=== PATIENT | female | born 1950 | race Caucasian/White ===

== ENCOUNTER → 2019-04-22 10:00 | Outpatient (POV) | payer SELFPAY | PROVIDERS: Visit Provider Dermatology | DX: Z00.00 Encounter for general adult medical examination without abnormal findings (principal) ==

== ENCOUNTER → 2022-03-24 13:38 | Outpatient (CLI) | payer MEDICARE, BC, SELFPAY ==
--- NOTE | 2022-03-24 13:43 | US_ITS ---
FINAL REPORT CLINICAL HISTORY: SWELLING UNDER LT NECK FINDINGS: ULTRASOUND SOFT TISSUE NECK Sonographic images of the neck were obtained directed to the salivary glands. The bilateral submandibular and parotid glands have a normal sonographic appearance. Normal appearing lymph nodes are identified. There is no mass identified. IMPRESSION: Unremarkable. If clinical suspicion is high for mass, consider contrast-enhanced CT or MRI. Reviewed, Interpreted and Dictated by Yariel Hassan MD Transcribed by Lou Baltazar Authenticated and [facility]
--- NOTE | 2022-03-24 13:43 | US_ITS ---
FINAL REPORT CLINICAL HISTORY: RLQ PAIN FINDINGS: Transabdominal sonographic images of the pelvis were obtained. The uterus measures 6.1 x 2.3 x 4.0 cm. The endometrium is suboptimally visualized measuring 3 mm which is normal. The right ovary measures 1.3 x 1.1 x 0.6 cm. The left ovary measures 1.2 x 1.0 x 0.7 cm No free fluid is identified. IMPRESSION: No acute process. Reviewed, Interpreted and Dictated by Felix Humphrey III, MD Transcribed by Rupinder Calderon Authenticated and [facility]
== END ==
PROVIDERS: Visit Provider Family Medicine
DX: R22.1 Localized swelling, mass and lump, neck (principal); R10.31 Right lower quadrant pain
CPT/HCPCS: 76536; 76856

== ENCOUNTER 2022-12-09 10:06 | Emergency (ER) | payer MEDICARE, BC, SELFPAY ==
[2022-12-09 10:07] VITALS: BP 169/78; PULSE 75; RESP 18; TEMP 36.4; O2SAT 97; BMI 31.1
--- NOTE | 2022-12-09 10:24 | PC.NURSE ---
dr mcneill at bedside
--- NOTE | 2022-12-09 10:25 | PC.NURSE ---
pt attempted to urinate, unable to at this time
--- NOTE | 2022-12-09 10:32 | CT_ITS ---
PROCEDURE INFORMATION: Exam: CT Abdomen And Pelvis Without Contrast Exam date and time: 12/09/2022 10:37 AM Age: 72 years old Clinical indication: Abdominal pain; Flank; Right lower quadrant (rlq); Additional info: Subacute rlq pain, HX stone and hernia TECHNIQUE: Imaging protocol: Computed tomography of the abdomen and pelvis without contrast. Radiation optimization: All CT scans at this facility use at least one of these dose optimization techniques: automated exposure control; mA and/or kV adjustment per patient size (includes targeted exams where dose is matched to clinical indication); or iterative reconstruction. REPORTING DATA: Count of CT and Cardiac NM exams in prior 12 months: This patient has received [address] and 0 known cardiac nuclear medicine studies in the 12 months prior to the current study. COMPARISON: CT ABD/PELVIS WITH IV CONTRAST 05/02/2022 9:35 AM FINDINGS: Limitations: The absence of intravenous contrast limits the assessment of vascular structures, lesions and lymphadenopathy. Lungs: Lung bases are unremarkable. Liver: No focal hepatic lesions within the limits of noncontrast examination. Gallbladder and bile ducts: There has been a cholecystectomy. Pancreas: No peripancreatic fluid stranding. No main pancreatic ductal dilation. Spleen: No splenomegaly. Adrenal glands: The adrenal glands are normal. Kidneys and ureters: Nonobstructive right nephrolithiasis noted. No hydroureteronephrosis on either side. Stomach and bowel: See Soft tissues finding. Appendix: A normal appendix is not well visualized. However, no evidence of inflammatory changes in the right lower quadrant to suggest acute appendicitis. Intraperitoneal space: There is no evidence of free intraperitoneal or pelvic fluid. Vasculature: Retroaortic left renal vein noted. The aorta demonstrates mild atherosclerotic calcification. Lymph nodes: No lymphadenopathy. Urinary bladder: Unremarkable as visualized. Reproductive: Unremarkable as visualized. Bones/joints: No acute osseous abnormality. Soft tissues: There is a right spigelian hernia containing omental fat and a short segment of small bowel loops. The herniated loop demonstrates fecalization of intraluminal contents in keeping with low-grade bowel obstruction versus slow transit. IMPRESSION: 1. There is a right spigelian hernia containing omental fat and a short segment of small bowel loops. The herniated loop demonstrates fecalization of intraluminal contents in keeping with low-grade bowel obstruction versus slow transit. 2. Nonobstructive right nephrolithiasis
--- NOTE | 2022-12-09 10:34 | HMH.EDGENADL ---
Discharge Plan Disposition Patient Disposition: Home, Self-Care Condition: Good Prescriptions Prescriptions: New Enema Disposable 19-7 gram/118 mL enema 118 ml OR DAILY PRN (Reason: constipation) 1 Days Qty: 133 0RF polyethylene glycol 3350 [Miralax] 17 gram/dose powder 17 g PO DAILY 4 Days Qty: 68 0RF No Action lisinopril 20 mg tablet 20 mg PO DAILY furosemide 20 mg tablet 20 mg PO Q OTHER DAY atorvastatin 10 mg tablet 10 mg PO DAILY Referrals Follow up/Referrals: Jay Vernon [Primary Care Provider] - See instructions Activity Restrictions/Add. Instructions Additional Instructions/Restrictions: As discussed, as your hernia was able to be reduced, there is no need for emergent surgery at this time, please use the prescribed laxatives and follow-up with your surgeon. If your hernia is not able to be reduced, causes recurrent exquisite pain, or you develop any new or worsening symptoms please return to the emergency department. Clinical Impressions Clinical Impression: Incarcerated hernia Instructions Patient Instructions: Hernias: Causes and Treatment Options, Ventral Hernia, DI for Ventral Hernia Discharge ED Provider: Negro Garza Adult HPI General Chief complaint: Abdominal Pain Stated complaint: abd pain Time Seen by Provider: 12/09/22 10:19 Mode of Arrival: Wheelchair Limitations: No Limitations Description of Symptoms (Recalled from ER Triage Doc. by RN): PT REPORTS ABDOMINAL PAIN THAT BEGAN ABOUT 0600 THIS AM. REPORTS HERNIA, RECENT LITHOTRIPSY. C/O CONSTIPATION, SUPPOSITY YESTERDAY WITH MINIMAL RESULTS History of Present Illness HPI narrative: Patient presents for evaluation of right lower quadrant abdominal pain that was gradual in onset starting today, constant, stable in course, with no associated nausea or vomiting, previous therapies include suppository with minimal improvement of symptoms, has been able to pass flatus, however does note history of constipation. Pain is located over known ventral hernia that is currently being worked up on outpatient basis, has known history of urolithiasis on ipsilateral side however denies any dysuria or frequency or CVA pain. No melanic stools, no abdominal trauma. No blood thinner usage. Related Data Home Medications Medication Instructions Recorded Confirmed atorvastatin 10 mg tablet 10 mg PO DAILY Cholesterol 05/18/22 12/09/22 furosemide 20 mg tablet 20 mg PO Q OTHER DAY Fluid 05/18/22 12/09/22 lisinopril 20 mg tablet 20 mg PO DAILY High Blood Pressure 05/18/22 12/09/22 Previous Rx's Medication Instructions Recorded polyethylene glycol 3350 17 17 g PO DAILY 4 days #68 grams 12/09/22 gram/dose oral powder (Miralax) sodium phosphates 19 gram-7 118 ml OR DAILY PRN constipation 1 12/09/22 gram/118 mL enema (Enema day #133 mL Disposable) Allergies Allergy/AdvReac Type Severity Reaction Status Date / Time No Known Allergies Allergy Verified 05/18/22 13:24 [facility] Disclaimer: The information contained in this section may have been updated after the patient was seen, as this information can be updated by other users. Medical History (Updated 12/09/22 @ 13:33 by Negro Garza MD) Hyperlipidemia Nephrolithiasis Spigelian hernia with bowel obstruction Surgical History (Updated 12/09/22 @ 12:10 by Ashley Odonnell RN) History of axillary surgery History of colonoscopy History of laparoscopic cholecystectomy History of lithotripsy Social History (Updated 05/18/22 @ 13:25 by ABILIO Alvarado) Smoking Status: Never smoker alcohol intake: never current occupational status: other Travel in the last 8 weeks: None ROS Obtained: Yes Systems reviewed as appropriate & no additional complaints except as documented Physical Exam General General appearance: alert and in no apparent distress Head Head exam: atraumatic and normocephalic Eye Eye exam: Present normal
[2022-12-09 10:40] LABS: Chloride 106 mmol/L (98-107); Sodium 142 mmol/L (136-145)
[2022-12-09 10:41] LABS: Basophils # 0.1 K/mm3 (0-0.2); Basophils % 1.1 % (0.1-2.0); Eosinophils # 0.3 K/mm3 (0.0-0.4); Eosinophils % 4.2 % (0.1-12.0); Hematocrit 42.1 % (37.0-47.0); Hemoglobin 13.5 g/dL (12.2-16.2); Lymphocytes # 1.6 K/mm3 (0.7-4.5); Lymphocytes % 26.1 % (10-50); Mean Corpuscular Hemoglobin 28.3 pg (27.0-31.2); Mean Corpuscular Volume 88.6 fl (81-99); Mean Platelet Volume 7.8 fl (7.4-10.4); Monocytes # 0.4 K/mm3 (0.1-1.0); Monocytes % 5.6 % (1.7-9.3); Neutrophils # 3.9 K/mm3 (1.8-7.8); Platelet Count 245 K/mm3 (142-424); Potassium 3.8 mmoL/L (3.5-5.1); Red Blood Count 4.76 M/mm3 (4.20-5.40); Red Cell Distribution Width 14.2 % (11.5-17.5); White Blood Count 6.2 K/mm3 (4.8-10.8)
[2022-12-09 10:43] LABS: Alanine Aminotransferase 26 U/L (12-78); Alkaline Phosphatase 63 U/L (38-126); Anion Gap 15.8 mEq/L (5-15); Aspartate Amino Transferase 35 U/L (14-36); Bilirubin,Total 0.9 mg/dl (0.2-1.3); Blood Urea Nitrogen 11 mg/dl (7-17); Carbon Dioxide 24 mmol/L (22.0-30.0); Creatinine Clearance Estimated 62 mL/min (50-200); Estimated Glomerular Filt Rate 71 ml/min (>60); GFR (African American) 85 ML/MIN (>60)
[2022-12-09 10:44] LABS: Albumin Level 4.2 g/dl (3.5-5.0); Albumin/Globulin Ratio 1.4 (1.1-1.8); Calcium 9.4 mg/dl (8.4-10.2); Globulin 3.1 g/dL (1.3-3.2); Glucose 114 mg/dl (74-100); Lipase 98 U/L (23-300); Total Protein,Serum 7.3 g/dl (6.3-8.2)
--- NOTE | 2022-12-09 10:44 | PC.NURSE ---
pt has returned to room. call light is within reach.
--- NOTE | 2022-12-09 10:46 | PC.NURSE ---
PT RETURNED FROM CT
--- NOTE | 2022-12-09 11:13 | PC.NURSE ---
DR GILL SPEAKING WITH RADIOLOGIST
[2022-12-09 11:27] LABS: Microscopic, Urine URINE MICROSCOPIC (MICROSCOPIC)
[2022-12-09 11:32] LABS: Appearance,Urine CLEAR (Clear); Bilirubin,Urine Negative (Negative); Blood, Urine Negative (Negative); Color,Urine YELLOW (Yellow); Glucose,Urine (UA) Negative (Negative); Ketones,Urine Negative (Negative); Leukocyte Esterase,Urine Negative (Negative); Nitrate,Urine Negative (Negative); Protein,Urine Negative (Negative); Specific Gravity, Urine <= 1.005 (1.005-1.030); Urobilinogen,Urine 0.2 EU/dl (0.2)
[2022-12-09 11:37] VITALS: BP 133/69; PULSE 65; O2SAT 96
--- NOTE | 2022-12-09 11:55 | PC.NURSE ---
DR GILL AT BEDSIDE TO UPDATE PT AND FAMILY ON POC
[2022-12-09 12:00] VITALS: BP 158/77; PULSE 70; O2SAT 94
--- NOTE | 2022-12-09 12:04 | PC.NURSE ---
paged for surgeon container packer operator to speak with selene england
--- NOTE | 2022-12-09 12:06 | PC.NURSE ---
PT MEDICATED PER EMAR. WARM BLANKET PROVIDED. CALL LIGHT WITHIN REACH. NO NEEDS AT THIS TIME
--- NOTE | 2022-12-09 12:08 | PC.NURSE ---
Dr Garza speaking to spoke to General surgery , shes coming in to see pt
--- NOTE | 2022-12-09 12:16 | PC.NURSE ---
GENERAL SURGEON AT BEDSIDE DR DONOHUE
--- NOTE | 2022-12-09 12:16 | PC.NURSE ---
surgeon in to see pt
[2022-12-09 12:30] LABS: Bacteria,Urine Trace /lpf; WBC,Urine Occasional #/hpf (0-3)
--- NOTE | 2022-12-09 12:32 | CT_ITS ---
PROCEDURE INFORMATION: Exam: CT Abdomen And Pelvis Without Contrast Exam date and time: 12/09/2022 1:01 PM Age: 72 years old Clinical indication: Screening exam; Other: S/P reduction of hernia TECHNIQUE: Imaging protocol: Computed tomography of the abdomen and pelvis without contrast. Radiation optimization: All CT scans at this facility use at least one of these dose optimization techniques: automated exposure control; mA and/or kV adjustment per patient size (includes targeted exams where dose is matched to clinical indication); or iterative reconstruction. REPORTING DATA: Count of CT and Cardiac NM exams in prior 12 months: This patient has received [address] and 0 known cardiac nuclear medicine studies in the 12 months prior to the current study. COMPARISON: CT ABDOMEN PELVIS WO CON 12/09/2022 10:37 AM FINDINGS: Lungs: Lung bases are unremarkable. Liver: No focal hepatic lesions within the limits of noncontrast examination. Gallbladder and bile ducts: There has been a cholecystectomy. Pancreas: No peripancreatic fluid stranding. No main pancreatic ductal dilation. Spleen: No splenomegaly. Adrenal glands: The adrenal glands are normal. Kidneys and ureters: Nonobstructive right nephrolithiasis noted. No hydroureteronephrosis on either side. Stomach and bowel: No bowel wall thickening or distention. Appendix: A normal appendix is not well visualized. However, no evidence of inflammatory changes in the right lower quadrant to suggest acute appendicitis. Intraperitoneal space: There is no evidence of free intraperitoneal or pelvic fluid. Vasculature: Unremarkable. No abdominal aortic aneurysm. Lymph nodes: No lymphadenopathy. Urinary bladder: Urinary bladder is unremarkable. Reproductive: Unremarkable as visualized. Bones/joints: No acute osseous abnormality. Soft tissues: There is a right spigelian hernia containing omental fat. The herniated small bowel loop has been reduced. No free fluid to suggest incarceration. IMPRESSION: 1. There is a right spigelian hernia containing omental fat. The herniated small bowel loop has been reduced. No free fluid to suggest incarceration. 2. Nonobstructive right nephrolithiasis
--- NOTE | 2022-12-09 13:00 | PC.NURSE ---
PT TO CT
--- NOTE | 2022-12-09 13:02 | PC.NURSE ---
pt to ct
--- NOTE | 2022-12-09 13:05 | PC.NURSE ---
pt back to room
--- NOTE | 2022-12-09 13:06 | PC.NURSE ---
PT RETURNED FROM CT
--- NOTE | 2022-12-09 13:23 | PC.NURSE ---
DR GILL AT BEDSIDE TO UPDATE PT AND FAMILY
--- NOTE | 2022-12-09 13:28 | EXP.SURG.CON ---
History of Present Illness *Reason for visit:: Acute abdominal pain *History of present illness: Ms. Shireen Abreu is a 72-year-old female with a history of hypertension, nephrolithiasis, hyperlipidemia and known spigelian hernia who presents to the emergency room with approximately 6 hours of severe acute right lower quadrant abdominal pain. She has a history of nephrolithiasis, but this pain is different and distinct from her previous episodes. She denies hematuria or dysuria. She denies fever. She reports constipation. Labs in the emergency room were unremarkable. A CT scan showed a spigelian hernia containing a loop of small bowel with fecalized contents but no evidence of perforation or pneumatosis, and also kidney stones without hydronephrosis or obstruction. I reviewed the images independently and also the report. She had seen Dr. Linda in the past concerning the spigelian hernia, but there was some uncertainty if her flank pain was from the nonobstructed/nonincarcerated hernia or from kidney stones, and so she was encouraged to see urologist before consideration of the hernia repair. [facility] Disclaimer: The information contained in this section may have been updated after the patient was seen, as this information can be updated by other users. Medical History (Updated 12/09/22 @ 13:33 by Negro Garza MD) Hyperlipidemia Nephrolithiasis Spigelian hernia with bowel obstruction Surgical History (Updated 12/09/22 @ 12:10 by Ashley Odonnell RN) History of axillary surgery History of colonoscopy History of laparoscopic cholecystectomy History of lithotripsy Social History (Updated 05/18/22 @ 13:25 by ABILIO Alvarado) Smoking Status: Never smoker alcohol intake: never current occupational status: other Travel in the last 8 weeks: None Review of Systems Review of Systems Review of systems:: pertinent systems reviewed and negative unless documented below *Gastrointestinal Gastrointestinal: Reports abdominal pain, Reports constipation, Reports nausea and Denies vomiting *Genitourinary Genitourinary: Denies dysuria, Denies flank pain and Denies hematuria Meds Home Medications and Allergies Home Medications Medication Instructions Recorded Confirmed Type atorvastatin 10 mg tablet 10 mg PO DAILY Cholesterol 05/18/22 12/09/22 History furosemide 20 mg tablet 20 mg PO Q OTHER DAY Fluid 05/18/22 12/09/22 History lisinopril 20 mg tablet 20 mg PO DAILY High Blood Pressure 05/18/22 12/09/22 History polyethylene glycol 3350 17 17 g PO DAILY 4 days #68 grams 12/09/22 Rx gram/dose oral powder (Miralax) sodium phosphates 19 gram-7 118 ml OR DAILY PRN constipation 1 12/09/22 Rx gram/118 mL enema (Enema day #133 mL Disposable) New Prescriptions to Start Prescriptions: polyethylene glycol 3350 [Miralax] KaylaNegro sodium phosphates [Enema Disposable] Kayla,Negro Allergies Allergy/AdvReac Type Severity Reaction Status Date / Time No Known Allergies Allergy Verified 05/18/22 13:24 Exam (Inpt) Vital signs and Labs for Last 24 Hours: Temp Pulse Resp BP Pulse Ox O2 Del Method 97.6 F 70 18 158/77 H 94 L Room Air 12/09/22 10:07 12/09/22 12:00 12/09/22 10:07 12/09/22 12:00 12/09/22 12:00 12/09/22 12:00 Laboratory Results - last 24 hr 12/09/22 10:25: WBC 6.2, RBC 4.76, Hgb 13.5, Hct 42.1, MCV 88.6, MCH 28.3, MCHC 32.0, RDW 14.2, Plt Count 245, MPV 7.8, Neut % (Auto) 63.0, Lymph % (Auto) 26.1, [place] % (Auto) 5.6, Eos % (Auto) 4.2, Baso % (Auto) 1.1, Neut # (Auto) 3.9, Lymph # (Auto) 1.6, [place] # (Auto) 0.4, Eos # (Auto) 0.3, Baso # (Auto) 0.1, Sodium 142, Potassium 3.8, Chloride 106, Carbon Dioxide 24, Anion Gap 15.8 H, BUN 11, Creatinine 0.80, Estimated Creat Clear 62, Estimated GFR 71, Est GFR ( Amer) 85, Glucose 114 H, Calcium 9.4, Total Bilirubin 0.9, AST 35, ALT 26, Alkaline Phosphatase 63, Total
[2022-12-09 13:47] VITALS: BP 140/72; PULSE 74; RESP 20; TEMP 36.4; O2SAT 97
== END 2022-12-09 13:48 | disposition home or self-care (01) ==
PROVIDERS: Emergency Provider Emergency Medicine; PCP Family Medicine
DX: K43.6 Other and unspecified ventral hernia with obstruction, without gangrene (principal); N20.0 Calculus of kidney; I10 Essential (primary) hypertension; E78.5 Hyperlipidemia, unspecified
CPT/HCPCS: 74176; 80053; 81001; 83690; 85025; 96374; 96375; 99285; J2405

== ENCOUNTER 2022-12-14 10:20 | Day surgery (SDC) | payer MEDICARE, BC, SELFPAY ==
[2022-12-12 11:00] VITALS: BMI 31.1
[2022-12-14] VITALS (12 sets, daily range): BP systolic 116–157; BP diastolic 51–101; PULSE 68–75; RESP 15–20; TEMP 36.2–37; O2SAT 91–99
--- NOTE | 2022-12-14 11:29 | P.PNANES_ITS ---
[facility] Disclaimer: The information contained in this section may have been updated after the patient was seen, as this information can be updated by other users. Medical History Hyperlipidemia Nephrolithiasis Spigelian hernia with bowel obstruction Surgical History History of axillary surgery History of colonoscopy History of laparoscopic cholecystectomy History of lithotripsy Family History Other No significant family history Social History Smoking Status: Never smoker alcohol intake: current substance use type: denies use current occupational status: other Travel in the last 8 weeks: None [facility] Anesthesia Checklist Patient Identification Patient Identification: Arm Band and Verbal (Name & ) Structural Data Admitted From: Home Planned Operative Procedure/s: Ventral hernia repair Consent for Planned Operative Procedure(s) Verified: Yes NPO Status Verified Time NPO: 00:00 Chart Verification Results Verified: CBC and BMP Additional verifications Anesthesia Reactions: No Airway Assessment Mallampati Score:: Class II C-Spine Mobility Assessed: Yes TMJ Mobility Assessed: Yes Dentition: Partials (Upper) Neurological Assessment Level of Consciousness: Awake Hx Seizures: No Numbness or tingling in extremities: No Anesthesia Plan Anesthesia Risk discussed: Yes Anesthesia Plan: Verified ASA Class: II Anesthesia Type: General
--- NOTE | 2022-12-14 13:21 | EXP.OP.NOTE ---
Date of procedure: 12/14/22 Pre-op Diagnosis:: Spigellian Hernia Post-op Diagnosis:: Same Procedure performed:: Laparoscopic repair of right lower quadrant Spigellian (Ventral) Hernia using Bard [employer]ix LP 11.4cm circular mesh Surgeon:: Felix Linda MD MOTOR VEHICLE COMPLIANCE ANALYST:: Marlin Martinez Anesthesia: GETA Estimated blood loss (mL): 10 Clinical Note:: Patient is a 72-year-old female who presents for hernia repair. She had been seen in the office 2 days ago after being evaluated in the emergency department over the weekend for Spigellian hernia which was able to be successfully reduced by Dr. Last. I had actually seen her in the office six months ago for this. Primary care provider is Leonides Vernon. Patient had pelvic ultrasound performed on 03/24/2022 for right lower quadrant pain. She saw gastroenterology in [place]. Dr. Feldman has performed colonoscopy. She underwent a CT scan with IV contrast on 05/02/2022 at outside facility which revealed 6 mm nonobstructing right renal calculus without hydronephrosis and also, by report, a right lateral ventral wall hernia with approximately 2.8 cm abdominal wall defect containing unobstructed small bowel loops. She was sent for surgical consultation by Dr. Feldman. Patient describes some pain in the right lower quadrant with radiation around to her right back. I saw her in the office following that. Patient was scheduled for urology evaluation due to incidental findings of a kidney stone and she was supposed to return after that. She presented to the emergency department on 12/09/2022 with a 6-hour history of severe acute right lower quadrant abdominal pain she had a CT scan performed which revealed findings of right lower quadrant hernia containing loop of small bowel with fecalized contents but no evidence of perforation or pneumatosis. She was seen and evaluated in the emergency department by the surgeon on-call who was able to successfully reduce the hernia. Recommendations were for outpatient follow-up with me in the next several weeks. When she was seen in the office on 12/12/22 patient has had some continued discomfort. She wished to undergo repair as soon as possible. Operative findings:: She had a right lower quadrant hernia defect measuring about 3 cm with herniated preperitoneal fat. Operative note:: Patient was taken the operating room. She was given preoperative intravenous antibiotics. In the operating room she was placed in a supine position. Newman catheter was placed. Abdomen was prepped and draped in the standard surgical fashion. 5 mm left subcostal incision was made and a 5 mm optical trocar was inserted carefully into the peritoneal cavity. CO2 pneumoperitoneum was achieved to 15 mmHg. Intraperitoneal contents were visualized. She had minimal adhesions near her umbilicus likely from prior laparoscopy. There was noted to be obvious hernia defect in the right lower pelvic area. There was no bowel but there was herniated preperitoneal fatty tissues. 12 mm trocar was inserted inferior to the umbilicus. Additional 5 mm trocar was inserted in the right upper abdomen. Herniated preperitoneal fat was grasped and reduced. Surrounding peritoneum was incised with SUAD ultrasonic harmonic fiona such that the fascial edges were cleaned free and herniated tissues were incised from the surrounding peritoneum. Hernia sac and herniated preperitoneal fat was placed within an Endo Catch retrieval device and removed from the peritoneal cavity via the umbilical trocar site. Fascial defect was inspected. It measured about 3 cm. 11.4 cm circular Bard composites LP mesh was inserted into the peritoneal cavity after central portion of the defect was marked on the anterior abdominal wall with a skin marker. Incision was made at the central side of the defect on the abdominal wall. Hernia balloon insufflation tubing was brought through this tiny 1 to 2 mm incision. Balloon positioning system was inflated. Mesh was
--- NOTE | 2022-12-14 13:26 | EXP.ANES.I ---
[facility] Anesthesia Record Part I Anesthesia Record I Intake, IV Amount: 1,000 Hydration: Adequate Estimated blood loss (mL): 10 Urine output (mL): 0 Blood Pressure: 116/69 SaO2: 92 Pulse Rate: 71 Airway Patency: Patent Respiratory Rate: 20 Temperature: 98.2 F Patient is:: Drowsy and Oral/Nasal airway Stable to PACU at:: 13:25
--- NOTE | 2022-12-15 11:34 | EXP.ANES.II ---
[facility] Anesthesia Record Part II Anesthesia Record Part II Discharge Time: 14:14 Destination: Surgical Day Care (OP Surgery) PACU nurse assessment reviewed?: Yes Patient Condition:: Good Anesthesia Complications:: None Swallowing reflex intact?: Yes Airway Patency: Patent Cyanosis?: No Blood Pressure: 157/76 SaO2: 96 Respiratory Rate: 15 Pulse Rate: 71 Temperature: 98.2 F Mental Status: Alert & Oriented Pain level:: 9 Nausea and/or vomitting:: None Intake, IV Amount: 0 Hydration: Adequate
[2022-12-15 11:35] VITALS: BP 157/76; PULSE 71; RESP 15; TEMP 36.8; O2SAT 96
== END 2022-12-14 13:05 | disposition home or self-care (01) ==
PROVIDERS: PCP Family Medicine; Visit Provider Surgery
PROC: (CPT 49593; principal; 2022-12-14 12:00)
DX: K43.9 Ventral hernia without obstruction or gangrene (principal); Z79.899 Other long term (current) drug therapy
CPT/HCPCS: 49593; 87086; 88302; 96374; C1781; J0131; J2405

== ENCOUNTER → 2023-02-07 08:50 | Outpatient (CLI) | payer MEDICARE, BC, SELFPAY ==
--- NOTE | 2023-02-07 08:55 | MM_ITS ---
FINAL REPORT CLINICAL HISTORY: stereo bx FINDINGS: STEREOTACTIC GUIDED RIGHT BREAST BIOPSY, CLIP PLACEMENT, SPECIMEN RADIOGRAPH AND POST BIOPSY MAMMOGRAM Indication: Suspicious calcifications Findings: The stereotactic guided breast biopsy procedure was explained in detail to the patient including potential risk and benefits. The patient voiced an understanding of the procedure, was given an opportunity to ask questions, after which informed consent was obtained. The patient was positioned upon the stereotactic unit in the prone position. Breast was prepped in the usual sterile fashion. Subcutaneous soft tissues were anesthetized with lidocaine with epinephrine. An inferior to superior approach was utilized. Subsequently, with intermittent stereotactic guidance, the stereotactic biopsy needle was advanced into the breast in the region of the mammographic abnormality corresponding to recent diagnostic mammogram. Multiple vacuum assisted core samples were obtained. Sampling was thought to be adequate and the biopsy clip marker was deployed in the region of biopsy. Additional imaging as detailed below was performed. A 2nd nearby much smaller group of calcifications were also recommended for biopsy. However these were not performed at the time due to location and less optimal visualization. Specimen radiograph: Calcifications confirmed adequate Post procedure routine CC and MLO view mammogram: Post biopsy changes. Biopsy marker clip noted to be in the appropriate location. Patient tolerated the procedure well. No immediatecomplications. IMPRESSION: 1. Technically successful stereotactic guided biopsy of right lower inner quadrant calcifications 2. Biopsy marker clip deployed 3. Post biopsy mammogram obtained as above Histopathology results reveal invasive ductal carcinoma.. Pathology is concordant with mammographic findings. Recommend 6 month mammographic follow-up as routine benign postbiopsy surveillance. Given the presence of a separate much smaller group of adjacent indeterminate calcifications more anteriorly within the same quadrant MR may be considered for further treatment planning evaluation. Alternatively bracketed needle localization could include the more anterior calcifications if patient undergoes lumpectomy. Authenticated and [facility]
--- NOTE | 2023-02-07 09:13 | MM_ITS ---
FINAL REPORT CLINICAL HISTORY: post stereo clip placement FINDINGS: MAMMOGRAM RIGHT TECHNIQUE: Standard digital 2-D views COMPARISON: None DENSITY: There are scattered areas of fibroglandular density FINDINGS: Post biopsy marker clip is noted to be in satisfactory position contained within a large group of heterogeneous calcifications. The should be noted that there was a separate much smaller group of calcifications more anteriorly.. Postbiopsy changes are noted. IMPRESSION: Biopsy marker clip in good position RECOMMENDATION: Surgical consultation for treatment. Given the presence of a 2nd group of much smaller calcifications in the same quadrant treatment planning MRI may be considered or removal of the non-biopsied adjacent group of calcifications located within the same quadrant at time of surgery.. Authenticated and ERN
--- NOTE | 2023-02-07 09:13 | MM_ITS ---
FINAL REPORT CLINICAL HISTORY: specimen from stereo FINDINGS: Specimen radiograph History: Right breast to touch calcifications Findings: Multiple core tissue fragments were imaged. Study shows some of the samples to contain calcifications of interest from right lower inner quadrant biopsy. IMPRESSION: Specimen radiographs confirm samples containing calcifications of interest Authenticated and ERN
== END ==
PROVIDERS: PCP Family Medicine; Visit Provider Family Medicine
DX: R92.8 Other abnormal and inconclusive findings on diagnostic imaging of breast (principal); R92.0 Mammographic microcalcification found on diagnostic imaging of breast; N63.14 Unspecified lump in the right breast, lower inner quadrant
CPT/HCPCS: 19081; 76098; 77065; 88305; 88342; 88360

== ENCOUNTER 2023-10-16 08:44 | Day surgery (SDC) | payer MEDICARE, BC, SELFPAY ==
[2023-10-12 14:22] VITALS: BMI 29.6
[2023-10-16 09:40] VITALS: BP 185/68; PULSE 73; RESP 18; TEMP 36.2; O2SAT 98
[2023-10-16] MEDS: TETRACAINE 0.5% OPTH SOL 15ML OP ×3 (09:45→09:55)
[2023-10-16] MEDS: PHENYLEPHRINE 2.5% OPHTH SOLN 2ML OP ×3 (09:45→09:55)
[2023-10-16] MEDS: CYCLOPENTOLATE 2% OPHTH SOLN 2ML BOTTLE OP ×3 (09:45→09:55)
[2023-10-16] MEDS: SODIUM CHLORIDE 0.9% 10ML FLUSH SYRINGE 10 ML IV ×2 (09:45→10:43)
[2023-10-16 10:43] VITALS: BP 122/59; PULSE 59; RESP 16; TEMP 36.6; O2SAT 96
[2023-10-16] MEDS: MIDAZOLAM 2MG/2ML VIAL 1 MG IV (10:45)
[2023-10-16] MEDS: TIMOLOL 0.5% OPTH SOLN 5ML OP (10:45)
[2023-10-16] MEDS: TOBRAMYCIN/DEX OPTH SUSP 2.5ML OP (10:45)
[2023-10-16] MEDS: LIDOCAINE 1% PF 2ML AMPULE 2 ML IJ (10:45)
[2023-10-16 10:46] VITALS: BP 124/61; PULSE 60; RESP 16; TEMP 36.6; O2SAT 98
[2023-10-16 10:53] VITALS: BP 117/60; PULSE 56; RESP 16; TEMP 36.6; O2SAT 96
[2023-10-16 11:00] VITALS: BP 145/87; PULSE 76; RESP 16; TEMP 36.1; O2SAT 96
--- NOTE | 2023-10-16 12:04 | [facility].PROCNOTE ---
[facility] Procedure Note Date: 10/16/23 Time: 12:04 Procedure Note:: Preoperative Diagnosis: Cataract combined NS Cortical Complex [Left] Eye Postop diagnosis: same Operation: Microscopic phacoemulsification with intraocular lens implant [Left] Eye Specimen: None Blood Loss: None The patient was examined in the office with a complaint of poor vision in the [left] eye. The patient reports that this interferes with ADLs such as reading, watching TV and/or driving or the vision is like looking through a foggy haze and is very troubling. The patient was examined and found to have a visually significant cataract with best corrected vision of [20/400] by refraction and/or glare testing. Treatment options, risks and benefits were explained and the patient elected to have cataract surgery in an attempt to improve their vision. The patient had the eye anesthetized with topical tetracaine, the eye ways prepped and draped in the usual fashion for cataract surgery. A paracentesis and a temporal keratotomy were made. 0.2cc of 1% lidocaine PF was placed into the anterior chamber. And aqueous/viscoelastic exchange was done and a 360 degree capsulorexis was performed. Through hydrodissection and delineation with BSS on a cannula was done. The lens nucleus was phecoemulsified with CDE of [10.67]. Residual cortical material was removed using automated I&A The capsular bag was deepened with viscoelastica and a PCIOL was placed in the capsular bag with good centration and stability. Residual viscoelastic was removed using automated I&A. The keratotomy incision was hydrated with BSS on a cannula. The wound were checked and found to be water tight. IOP was checked digitally and adjusted as needed so as not to be too high. 1 drop of timolol 0.5%, ofloxacin, prednisolone acetate and ketorolac was instilled and eye shield taped over the eye. The patient was taken to recovery in good condition and will be seen postoperatively.
== END 2023-10-16 11:10 | disposition home or self-care (01) ==
PROVIDERS: PCP Family Medicine; Visit Provider Ophthalmology
PROC: (CPT 66984; principal; 2023-10-16 11:00)
DX: H25.12 Age-related nuclear cataract, left eye (principal)
CPT/HCPCS: 66984; J2250; V2632

== ENCOUNTER 2023-11-06 06:35 | Day surgery (SDC) | payer MEDICARE, BC, SELFPAY ==
[2023-11-05 13:02] VITALS: BMI 30.2
[2023-11-06] MEDS: TETRACAINE 0.5% OPTH SOL 15ML OP ×3 (06:51→06:53)
[2023-11-06] MEDS: CYCLOPENTOLATE 2% OPHTH SOLN 2ML BOTTLE OP ×3 (06:52→06:53)
[2023-11-06] MEDS: PHENYLEPHRINE 2.5% OPHTH SOLN 2ML OP ×3 (06:52→06:53)
[2023-11-06 06:55] VITALS: BP 174/77; PULSE 72; RESP 18; TEMP 36.3; O2SAT 96
[2023-11-06 07:51] VITALS: BP 133/63; PULSE 55; RESP 16; TEMP 36.6; O2SAT 98
[2023-11-06] MEDS: MIDAZOLAM 2MG/2ML VIAL 1 MG IV (07:51)
[2023-11-06 07:56] VITALS: BP 139/90; PULSE 58; RESP 16; TEMP 36.6; O2SAT 98
[2023-11-06] MEDS: TIMOLOL 0.5% OPTH SOLN 5ML OP (08:00)
[2023-11-06] MEDS: TOBRAMYCIN/DEX OPTH SUSP 2.5ML OP (08:00)
[2023-11-06] MEDS: LIDOCAINE 1% PF 2ML AMPULE 2 ML IJ (08:00)
[2023-11-06] MEDS: SODIUM CHLORIDE 0.9% 10ML FLUSH SYRINGE 10 ML IV (08:00)
[2023-11-06 08:01] VITALS: BP 140/66; PULSE 56; RESP 16; TEMP 36.6; O2SAT 97
[2023-11-06 08:06] VITALS: BP 135/63; PULSE 56; RESP 16; TEMP 36.6; O2SAT 98
[2023-11-06 08:13] VITALS: BP 153/91; PULSE 64; RESP 16; TEMP 36.5; O2SAT 98
--- NOTE | 2023-11-06 11:00 | P.PCN_ITS ---
[facility] Procedure Note Date: 11/06/23 Time: 11:00 Procedure Note:: Preoperative Diagnosis: Cataract combined NS Cortical Complex [Right] Eye Postop diagnosis: same Operation: Microscopic phacoemulsification with intraocular lens implant [Right] Eye Specimen: None Blood Loss: None The patient was examined in the office with a complaint of poor vision in the [right] eye. The patient reports that this interferes with ADLs such as reading, watching TV and/or driving or the vision is like looking through a foggy haze and is very troubling. The patient was examined and found to have a visually significant cataract with best corrected vision of [20/400] by refraction and/or glare testing. Treatment options, risks and benefits were explained and the patient elected to have cataract surgery in an attempt to improve their vision. The patient had the eye anesthetized with topical tetracaine, the eye ways prepped and draped in the usual fashion for cataract surgery. A paracentesis and a temporal keratotomy were made. 0.2cc of 1% lidocaine PF was placed into the anterior chamber. And aqueous/viscoelastic exchange was done and a 360 degree capsulorexis was performed. Through hydrodissection and delineation with BSS on a cannula was done. The lens nucleus was phecoemulsified with CDE of [13.44]. Residual cortical material was removed using automated I&A The capsular bag was deepened with viscoelastica and a PCIOL was placed in the capsular bag with good centration and stability. Residual viscoelastic was removed using automated I&A. The keratotomy incision was hydrated with BSS on a cannula. The wound were checked and found to be water tight. IOP was checked digitally and adjusted as needed so as not to be too high. 1 drop of timolol 0.5%, ofloxacin, prednisolone acetate and ketorolac was instilled and eye shield taped over the eye. The patient was taken to recovery in good condition and will be seen postoperatively.
== END 2023-11-06 08:13 | disposition home or self-care (01) ==
PROVIDERS: PCP Family Medicine; Visit Provider Ophthalmology
PROC: (CPT 66984; principal; 2023-11-06 07:30)
DX: H25.11 Age-related nuclear cataract, right eye (principal); H53.8 Other visual disturbances
CPT/HCPCS: 66984; J2250; V2632

== ENCOUNTER 2024-01-07 07:35 | Outpatient (CLI) | payer MEDICARE, BC, SELFPAY ==
--- NOTE | 2024-01-07 07:40 | CT_ITS ---
FINAL REPORT TECHNIQUE: After the administration of intravenous contrast, axial images were obtained through the abdomen and pelvis by computed tomography. The study was performed with techniques to keep radiation dose as low as reasonably achievable, (ALARA). Individual dose reduction techniques using automated exposure control or adjustment of mA and/or kV according to the patient's size were employed. CLINICAL HISTORY: PAIN COMPARISON: 12/09/2022 FINDINGS: Abdomen: The lung bases are clear. A small hiatal hernia is present. The liver parenchyma is unremarkable in appearance. The gallbladder is surgically absent. The spleen, pancreas, and adrenals appear unremarkable. There is a small nonobstructing stone in the lower pole of the right kidney measuring approximately 4 mm in size. The aorta is normal in caliber. There is no free fluid or adenopathy. Pelvis: The appendix is not identified. The previously noted right anterior pelvic wall hernia is no longer seen. The uterus is anteverted. Calcified phleboliths are noted in the pelvis. The urinary bladder is unremarkable. There is no free fluid or adenopathy. IMPRESSION: Small nonobstructing stone in the lower pole of the right kidney measuring 4 mm in size. Previously noted right anterior pelvic wall hernia is no longer seen. Reviewed, Interpreted and Dictated by Fredi Etienne MD Transcribed by Shanae Phillips Authenticated and [facility]
[2024-01-07] MEDS: IOPAMIDOL-370 (76%);100ML BOTTLE 75 ML IV (08:22)
[2024-01-07] MEDS: SODIUM CHLORIDE 0.9% 10ML SYR (RAD ONLY) 10 ML IV (08:22)
== END 2024-01-07 23:59 | disposition home or self-care (01) ==
LOC: RAD 07:36
PROVIDERS: PCP Family Medicine; Visit Provider Family Medicine
DX: R10.32 Left lower quadrant pain (principal); R19.04 Left lower quadrant abdominal swelling, mass and lump
CPT/HCPCS: 74177; Q9967

== ENCOUNTER 2024-12-09 09:30 | Emergency (ER) | payer MEDICARE, BC, SELFPAY ==
--- OUTSIDE RECORDS SUMMARY | 2024-10-31 10:00 | XMS_ITS | Encounter Summary ---
Author Organization [facility] Address [address] [place] [id number] Care Team Providers Care Material Crew Supervisor Name Role Phone Jay Vernon MD Primary Care Provider [phone] Reason for Visit * Reason Comments Pain * Consultation (Routine) - Closed Specialty Diagnoses / Procedures Referred By Contac t Referred To Contact Orthopedic Surgery Diagnoses Left hip pain Jay Vernon MD [address] [place] [address] [place] [address] Phone: tel: fax: Raymundo Gil MD [address] [place] [id number] Phone: tel: fax: Referral ID Status Reason Start Date Expiration Date Visits Re quested Visits Authorized [id number] Closed 10/07/2024 01/06/2026 1 1 Encounter Details Date Type Department Care Team (Late st Contact Info) Description 10/31/2024 10:00 AM EDT Office Visit [facility]ICINE [address] [address] Raymundo Gil MD [address] [place] [address] Primary osteoarthritis of left hip (Primary Dx) Social History Tobacco Use Types Packs/Day Years Used Date Smoking Tobacco: Never Alcohol Use Standard Drinks/Week Comments Yes 0 (1 standard drink = 0.6 oz pur e alcohol) weekend Abuse Screen Answer Date Recorded Unsafe at Home or Work/School Not on file Feels Threatened by Someone? Not on file 02/2023 Does Anyone Keep You from Co ntacting Others or Doint Things Outside the Home? Not on file 01/04/2023 Physical Sign of Abuse Present Not on file 1 Housing Stability Answer Date Recorded Current Living Arrangements Not on file 12/24 Potentially Unsafe Housing Conditions Not on raúl e 01/04/2023 Family and Community Support Answer Erickson e Recorded Help with Day-to-Day Activities Not on file 01/04/2023 Lonely or Isolated Not on file 01/04/2023 Employment Answer Date Recorded Do you want help finding or keeping work or a rojas b? Not on file 01/04/2023 Disabilities Answer Date Recorded Concentrating, Remembering, or Making Decisions Difficulty Not on file 01/04/2023 Doing Errands Independently Difficulty Not on fi le 01/04/2023 Education Answer Date Recorded Help with school or training? Not on file Preferred Language Not on file 01/04/2023 Comments No Sex and Gender Information Value Date Recorded Sex Assigned at Not on file Legal Sex Female 11:34 AM EST Gender Identity Not on file Sexual Orientation Not on file documented as of this encounter Last Filed Vital Signs Vital Sign Reading Time Taken Comments Blood Pressure 138/88 10/31/2024 10:25 AM EDT Pulse - - Temperature - - Respiratory Rate - - Oxygen Saturation - - Inhaled Oxygen Concentration - - Weight 75.3 kg (166 lb) 10/31/2024 10:25 AM EDT Height 154.9 cm (5' 1 ) 10/31/2024 10:25 AM EDT Body Mass Index 31.37 10/31/2024 10:25 AM EDT documented in this encounter Progress Notes * Raymundo Gil MD - 10/31/2024 10:00 AM EDT Images from the original note were not included. [facility] Orthopaedic Surgery Clinic Note Subjective Chief Complaint Patient presents with Left Hip - Pain HPI Shireen Rain is a 74 y.o. female who presents with new problem of: left hip pain. Onset:atraumatic and gradual in nature. The issue has been ongoing for 8 month(s). Pain is a 8/10 at night & now 6/10 on the pain scale. Pain is described as dull and aching. Associated symptoms include pain, popping, grinding, and stiffness. The pain is worse with walking, sitting, climbing stairs, sleeping, and rising from seated position; ice, heat, and pain medication and/or NSAID improve the pain. Previous treatments have included: cane/walker, NSAIDS, physical therapy, Emu cream and steroidinjection joint Ultrasound Guided (last injection 3 months ago). She feels the hip grinding, and islimited to walking with a cane currently. She is interested in considering hip replacement surgery.She has exhausted conservative treatment. She was under the care of Dr. Platt previously. A friendcan help her out postoperatively. No history of clots or clotting disorders. No blood thinners. Pain is located in the groin region and radiates laterally and posteriorly also. I have reviewed the following portions of the patient's history and agree with: History of Present Illness and Review of Systems Patient Active Problem List Diagnosis Primary osteoarthritis of left hip Degenerative arthritis of hip Past Medical History: Diagnosis Date Acid reflux Gallbladder abscess Hypertension Migraines Urinary tract infection Past Surgical History: Procedure Laterality Date CHOLECYSTECTOMY Family History Problem Relation Age of Onset Multiple myeloma Sister Social History Socioeconomic History Marital status: Tobacco Use Smoking status: Never Vaping Use Vaping status: Never Used Substance and Sexual Activity Alcohol use: Yes Comment: weekend Drug use: Never Sexual activity: Defer Current Outpatient Medications on File Prior to Visit Medication Sig Dispense Refill atorvastatin (LIPITOR) 10 MG tablet Take 1 tablet by mouth Daily. B Complex Vitamins (vitamin b complex) capsule capsule Take by mouth Daily. Cholecalciferol (Vitamin D3) 1.25 MG (43962 UT) capsule Take 1 capsule by mouth 1 (One) Time Per Week. Cyanocobalamin (B-12 PO) Take by mouth. DICLOFENAC PO Take 15 mg by mouth Daily. furosemide (LASIX) 20 MG tablet Take 1 tablet by mouth As Needed. letrozole (FEMARA) 2.5 MG tablet Take 1 tablet by mouth Daily. lisinopril (PRINIVIL,ZESTRIL) 10 MG tablet Take 1 tablet by mouth Daily. pilocarpine (SALAGEN) 5 MG tablet Take 1 tablet by mouth 2 (Two) Times a Week. Turmeric (QC TUMERIC COMPLEX PO) Take by mouth 1 (One) Time Per Week. [DISCONTINUED] Ascorbic Acid (VITAMIN C PO) Take by mouth. [DISCONTINUED] ELDERBERRY PO Take by mouth. [DISCONTINUED] VITAMIN D PO Take by mouth. No current facility-administered medications on file prior to visit. No Known Allergies Review of Systems Constitutional: Negative for activity change, appetite change, chills, diaphoresis, fatigue, fever and unexpected weight change. HENT: Negative for congestion, dental problem, drooling, ear discharge, ear pain, facial swelling, hearing loss, mouth sores, nosebleeds, postnasal drip, rhinorrhea, sinus pressure, sneezing, sore throat, tinnitus, trouble swallowing and voice change. Eyes: Negative for photophobia, pain, discharge, redness, itching and visual disturbance. Respiratory: Negative for apnea, cough, choking, chest tightness, shortness of breath, wheezing andstridor. Cardiovascular: Negative for chest pain, palpitations and leg swelling. Gastrointestinal: Negative for abdominal distention, abdominal pain, anal bleeding, blood in stool,constipation, diarrhea, nausea, rectal pain and vomiting. Endocrine: Negative for cold intolerance, heat intolerance, polydipsia, polyphagia and polyuria. Genitourinary: Negative for decreased urine volume, difficulty urinating, dysuria, enuresis, flank pain, frequency, genital sores, hematuria and urgency. Musculoskeletal: Positive for arthralgias. Negative for back pain, gait problem, joint swelling, myalgias, neck pain and neck stiffness. Skin: Negative for color change, pallor, rash and wound. Allergic/Immunologic: Negative for environmental allergies, food allergies and immunocompromised state. Neurological: Negative for dizziness, tremors, seizures, syncope, facial asymmetry, speech difficulty, weakness, light-headedness, numbness and headaches. Hematological: Negative for adenopathy. Does not bruise/bleed easily. Psychiatric/Behavioral: Negative for agitation, behavioral problems, confusion, decreased concentration, dysphoric mood, hallucinations, self-injury, sleep disturbance and suicidal ideas. The patientis not nervous/anxious and is not hyperactive. All other systems reviewed and are negative. Objective Physical Exam BP 138/88 Ht 154.9 cm (61 ) Wt 75.3 kg (166 lb) BMI 31.37 kg/m?? Body mass index is 31.37 kg/m??. BMI cannot be calculated due to outdated height or weight values. Please input a current height/weight in Vitals and re-renter BMIFOLLOWUP in Note to pull in correct documentation based on BMI range. General: Mental Status: Alert Appearance: Cooperative, in no acute distress Build and Nutrition: Well-nourished well-developed female Orientation: Alert and oriented to person, place and time Posture: Normal Gait: Limp on the left with a cane Integument: Left hip: No skin lesions, no rash, no ecchymosis Neurologic: Motor: Left lower extremity: 5/5 quadriceps, hamstrings, ankle dorsiflexors, and ankle plantar flexors Lower Extremity: Left Hip: Tenderness: None Swelling: None Crepitus: Positive Atrophy: None Range of motion: External Rotation: 30?? Internal Rotation: 10??, with pain Flexion: 100?? Extension: 0?? Instability: None Deformities: None Functional testing: [facility] on the left compared to the right Imaging/Studies Imaging Results (Last 24 Hours) Procedure Component Value Units Date/Time XR Hip With or Without Pelvis 2 - 3 View Left [[id number]] Resulted: 10/31/241047 Updated: 10/31/241047 Narrative: Left Hip Radiographs Indication: left hip pain Views: low AP pelvis and lateral of the left hip Comparison: no prior studies available for review Findings: Advanced arthritis, with njra-rx-[id number] contact, pseudosubluxation of the hip laterally, with subchondral sclerosis, cystic formation on both the femoral and acetabular aspects, with no unusual bony features. Advanced hip arthritis. Assessment and Plan Diagnoses and all orders for this visit: 1. Primary osteoarthritis of left hip (Primary) - XR Hip With or Without Pelvis 2 - 3 View Left - Case Request; Standing - Instructions on coughing, deep breathing, and incentive spirometry.; Future - CBC and Differential; Future - Basic metabolic panel; Future - Protime-INR; Future - APTT; Future - Hemoglobin A1c; Future - Sedimentation rate; Future - C-reactive protein; Future - Tranexamic Acid 1,000 mg in sodium chloride 0.9 % 100 mL - Tranexamic Acid 1,000 mg in sodium chloride 0.9 % 100 mL - ethyl alcohol 62 % 2 each - ceFAZolin (ANCEF) 2 g in sodium chloride 0.9 % 100 mL IVPB Other orders - Outpatient In A Bed; Standing - Follow Anesthesia Guidelines / Protocol; Future - Follow Anesthesia Guidelines / Protocol; Standing - Verify NPO Status; Standing - Verify The Time Patient Completed ERAS Hydration Drink; Standing - SCD (sequential compression device)- to be placed on patient in Pre-op; Standing - Clip operative site; Standing - Provide Patient With Carbo Loading Instructions - Provide Patient With ERAS Booklet(s)/Handout - Chlorhexidine Gluconate 4 % solution; Apply 1 Application topically to the appropriate area as directed Daily. Shower with hibiclens solution as directed for 5 days prior to surgery Dispense: 236 mL; Refill: 0 1. Primary osteoarthritis of left hip I reviewed my findings with the patient. We discussed options for her left hip, and she is a candidate for left total hip arthroplasty surgery. She has exhausted conservative treatment. Risks, benefits, alternatives have been discussed. Please see my counseling note for details. We will schedule left total hip arthroplasty surgery at a mutually convenient time. She would like to proceed in the near future if possible Surgical Counseling I have informed the patient of the diagnosis and the prognosis. 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 The symptoms have progressed to the point of daily pain and inability to perform activities of daily living without significant pain. The patient has reached the point of desiring to proceed with total hip arthroplasty after discussing the risks,benefits and alternatives to the procedure. The surgical procedure itself was discussed in detail. Risks of the procedure were discussed, which included but are not limited to, bleeding, infection, damage to blood vessels and nerves, incomplete pain relief, loosening of the prosthesis (early or late), deep infection (early or late), need for further surgery, leg length discrepancy, hip dislocation, loss of limb, deep venous thrombosis, pulmonary embolus, , heart attack, stroke, kidney failure, liver failure, and anesthetic complications. In addition, the potential for deep infection devel oping in the future was discussed, which could require further surgery. The hip would have to be re-opened, debrided, and potentially remove the prosthesis, which may or may not be replaced in the future. Also, the possibility for loosening of the prosthesis has been mentioned. If the prosthesis loosened, a revision arthroplasty could be performed, with results that are not as predictable compared to the original procedure. The typical rehabilitative course has also been discussed, and full recovery may take up to a year to see the maximum benefit. The importance of patient cooperation in therehabilitative efforts has also been discussed. No guarantees were given. The patient understands the potential risks versus the benefits and desires to proceed with total hip arthroplasty at a mutually convenient time. Return for surgery. Raymundo Gil MD 10/31/24 11:02 EDT Dictated Utilizing sendwithuson Dictation documented in this encounter Plan of Treatment Upcoming Encounters Date Type Department Care Team (Late st Contact Info) Description 12/12/2024 11:10 AM EDT Office Visit [facility] MEDICINE [address] [facility] [address] [place] [address] Nelly Rosa PA-C [address] [facility] [address] [place] [address] Scheduled Orders Name Type Priority Associated Diagnoses Orde r Schedule Instructions on coughing, deep breathing, and incentive spirometry. Respiratory Care Routine Primary osteoarthritis of left hip Expected: 11/05/2024, Expires: 10/31/2025 documented as of this encounter Procedures Procedure Name Priority Date/Time Associated Diagnosis Comments XR HIP W OR WO PELVIS 2-3 VIEW LEFT Routine 10/31/2024 10:32 AM EDT Primary osteoarthritis of left hip documented in this encounter Results * C-reactive protein (11/11/2024 1:33 PM EDT) C-Reactive Protein 0.33 0.00 - 0.50 mg/dL 11/11/2024 3:58 PM EDT [facility] Blood Venipuncture / Unknown 11/11/2024 1:33 PM EDT 11/11/2024 3:11 PM EDT us Raymundo Gil MD LAB BLOOD ORDERABLES Final Res ult [facility]
[address] [place] [address], * Sedimentation rate (11/11/2024 1:33 PM EDT) Sed Rate 26 0 - 30 mm/hr 11/11/2024 3:31 PM EDT [facility] Blood Venipuncture / Unknown 11/11/2024 1:33 PM EDT 11/11/2024 3:11 PM EDT Raymundo Gil MD LAB BLOOD ORDERABLES Final Res ult [facility]
[address] [place] [address], * (ABNORMAL) Hemoglobin A1c (11/11/2024 1:33 PM EDT) Pathologist [facility] Hemoglobin A1C 4.59(L) 4.80 - 5.60 % 11/11/2024 3:56 PM EDT [facility] Blood Venipuncture / Unknown 11/11/2024 1:33 PM EDT 11/11/2024 3:11 PM EDT Narrative [facility] - 11/11/2024 3:56 PM EDT Hemoglobin A1C Ranges: Increased Risk for Diabetes 5.7% to 6.4% Diabetes >= 6.5% Diabetic Goal < 7.0% Raymundo Gil MD LAB BLOOD ORDERABLES Final Res ult [facility]
[address] [place] [address], * APTT (11/11/2024 1:33 PM EDT) PTT 31.7 22.0 - 39.0 seconds 11/11/2024 3:36 PM EDT [facility] Blood Venipuncture / Unknown 11/11/2024 1:33 PM EDT 11/11/2024 3:11 PM EDT Narrative [facility] - 11/11/2024 3:36 PM EDT PTT = The equivalent PTT values for the therapeutic range of heparin levels at 0.3 to 0.5 U/ml are 60 to 70 seconds. Raymundo Gil MD LAB BLOOD ORDERABLES Final Res ult Performing Organization Address [facility] Co de Phone Number [facility]
[address] [place] [address], * Protime-INR (11/11/2024 1:33 PM EDT) Protime 14.4 12.2 - 15.3 Seconds 11/11/2024 3:36 PM EDT [facility] INR 1.05 0.89 - 1.12 11/11/2024 3:36 PM EDT [facility] Blood Venipuncture / Unknown 11/11/2024 1:33 PM EDT 11/11/2024 3:11 PM EDT Raymundo Gil MD LAB BLOOD ORDERABLES Final Res ult Performing Organization Address [facility] de Phone Number [facility]
[address] [place] [address], * Basic metabolic panel (11/11/2024 1:33 PM EDT) Glucose 91 65 - 99 mg/dL 11/11/2024 3:58 PM EDT [facility] BUN 11.2 8.0 - 23.0 mg/dL 11/11/2024 3:58 PM EDT [facility] Creatinine 0.65 0.57 - 1.00 mg/dL 11/11/2024 3:58 PM EDT [facility] Sodium 141 136 - 145 mmol/L 11/11/2024 3:58 PM EDT [facility] Potassium 3.9 3.5 - 5.2 mmol/L 11/11/2024 3:58 PM EDT [facility] Chloride 103 98 - 107 mmol/L 11/11/2024 3:58 PM EDT [facility] CO2 24.0 22.0 - 29.0 mmol/L 11/11/2024 3:58 PM EDT [facility] Calcium 9.8 8.6 - 10.5 mg/dL 11/11/2024 3:58 PM EDT [facility] BUN/Creatinine Ratio 17.2 7.0 - 25.0 11/11/2024 3:58 PM EDT [facility] Anion Gap 14.0 5.0 - 15.0 mmol/L 11/11/2024 3:58 PM EDT [facility] eGFR 92.5 >60.0 mL/min/1.7 3 11/11/2024 3:58 PM EDT [facility] Blood Venipuncture / Unknown 11/11/2024 1:33 PM EDT 11/11/2024 3:11 PM EDT [facility] - 11/11/2024 3:58 PM EDT GFR Categories in Chronic Kidney Disease (CKD) GFR Category GFR (mL/min/1.73) Interpretation G1 90 or greater Normal or high (1) G2 60-89 Mild decrease (1) G3a 45-59 Mild to moderate decrease G3b 30-44 Moderate to severe decrease G4 15-29 Severe decrease G5 14 or less Kidney failure (1)In the absence of evidence of kidney disease, neither GFR category G1 or G2 fulfill the criteria for CKD. eGFR calculation 2020 CKD-EPI creatinine equation, which does not include race as a factor us Raymundo Gil MD LAB BLOOD ORDERABLES Final Res ult [facility]
[address] [place] [address], * XR Hip With or Without Pelvis 2 - 3 View Left (10/31/2024 10:32 AM EDT) Anatomical Region Laterality Modality Lower Extremities, Hip Left Radiograp hic Imaging Narrative 10/31/2024 10:48 AM EDT Left Hip Radiographs Indication: left hip pain Views: low AP pelvis and lateral of the left hip Comparison: no prior studies available for review Findings: Advanced arthritis, with wbkg-vq-[id number] contact, pseudosubluxation of the hip laterally, with subchondral sclerosis, cystic formation on both the femoral and acetabular aspects, with no unusual bony features. Advanced hip arthritis. us Raymundo Gil MD IMG DIAGNOSTIC IMAGING ORDERAB LES Final Result documented in this encounter Visit Diagnoses Diagnosis Primary osteoarthritis of left hip- Primary documented in this encounter Care Teams Material Crew Supervisor Relationship Specialty Start Date End Date Jay Vernon MD [address] [place] [address] PCP - General Family Medicine 05/14/19 documented as of this encounter
--- OUTSIDE RECORDS SUMMARY | 2024-10-31 10:05 | XMS_ITS | Encounter Summary ---
Author Organization [facility] yste Address [address] [place] [address] Care Team Providers Care Dressing Room Porter Name Role Phone Jay Vernon MD Primary Care Provider [phone] Encounter Details Date Type Department Care Team (Late st Contact Info) Description 10/31/2024 10:05 AM EDT Ancillary Procedure [facility] ORTHOPEDICS & [facility]ORTS MEDICINE [address] [address] Social History Tobacco Use Types Packs/Day Years [...] on file documented as of this encounter Plan of Treatment Upcoming Encounters Date Type Department Care Team (Late st Contact Info) Description 12/12/2024 11:10 AM EDT Office Visit [facility]THOPEDICS & SPORTS MEDICINE [address] [facility] [address] [place] [address] Nelly Rosa PA-C [address] [facility] [address] [place], [place] [id number] documented as of this encounter Procedures Procedure Name Priority Date/Time Associated Diagnosis Comments XR HIP W OR WO PELVIS 2-3 VIEW LEFT Routine 10/31/2024 10:32 AM EDT Primary osteoarthritis of left hip documented in this encounter Results * XR Hip With or Without Pelvis 2 - 3 View Left (10/31/2024 10:32 AM EDT) Anatomical Region Laterality Modality Lower Extremities, Hip Left Radiograp hic Imaging Narrative 10/31/2024 10:48 AM EDT Left Hip Radiographs Indication: left hip pain Views: low AP pelvis and lateral of the left hip Comparison: no prior studies available for review Findings: Advanced arthritis, with [id number]-qt-[id number] contact, pseudosubluxation of the hip laterally, with subchondral sclerosis, cystic formation on both the femoral and acetabular aspects, with no unusual bony features. Advanced hip arthritis. us Raymundo Gil MD IMG DIAGNOSTIC IMAGING ORDERAB LES Final Result documented in this encounter Visit Diagnoses Not on filedocumented in this encounter Care Teams Dressing Room Porter Relationship Specialty Start Date End Date Jay Vernon MD [address] [place] [address] PCP - General Family Medicine 05/14/19 documented as of this encounter
--- OUTSIDE RECORDS SUMMARY | 2024-11-11 13:30 | XMS_ITS | Encounter Summary ---
Author Organization [facility] Address [address] [place] [address] Care Team Providers Care Logistics Planning Manager Name Role Phone Jay Vernon MD Primary Care Provider [phone] Encounter Details Date Type Department Care Team (Latest Contact Info) Description 11/11/2024 1:30 PM EDT Pre-Admission Testing [facility] [address] [place] [address] Primary osteoarthritis of left hip Social History Tobacco Use Types Packs/Day Years Used Date Smoking Tobacco: Former Cigarettes Smokeless Tobacco: Never Tobacco Cessation:Counseling Given: Not Answered Comments:Only smoked at age 15 to look cool- not social just few times Alcohol Use Standard Drinks/Week Comments Yes 1 (1 standard drink = 0.6 oz pur e alcohol) Abuse Screen Answer Date Recorded Feels Unsafe at Home or Work/School no 11/11/2024 Feels Threatened by Someone no 10/24 Does Anyone Try to Keep You From Having Contact with Others or Doing Things Outside Your Home? no 11/11/2024 Physical Signs of Abuse Present no 11/11/2024 Housing Stability Answer Date Recorded Current Living [...] or training? Not on file Preferred Language Estonian 11/11/2024 Comments No Sex and Gender Information Value Date Recorded Sex Assigned at Not on file Legal Sex Female 11:34 AM EST Gender Identity Not on file Sexual Orientation Not on file documented as of this encounter Last Filed Vital Signs Vital Sign Reading Time Taken Comments Blood Pressure - - Pulse - - Temperature - - Respiratory Rate - - Oxygen Saturation - - Inhaled Oxygen Concentration - - Weight 74.1 kg (163 lb 5.8 oz) 11/11/2024 2:42 P M EDT Height 157.5 cm (5' 2 ) 11/11/2024 2:42 PM EDT Body Mass Index 29.88 11/11/2024 2:42 PM EDT documented in this encounter OR Notes * Lynne Noel RN - 11/11/2024 1:30 PM EDT Patient to apply Chlorhexadine wipes to surgical area (as instructed) the night before procedure and the AM of procedure. Wipes provided. Prescription for Chlorhexidine shower called into patient's pharmacy or [facility] pharmacy by patient's surgeon. Reinforced with patient to strip picker the prescription from applicable pharmacy if they haven'talready. Verbal and written instructions given regarding proper use of Chlorhexidine body wash to patient and/or famlily during PAT visit. Patient/family also instructed to complete checklist and return it to Pre-op on the day of surgery. Patient and/or family verbalized understanding. Per Anesthesia Request, patient instructed not to take their SUAD/ARB medications on the AM of surgery. Patient instructed to drink 20 ounces of Gatorade or Gatorlyte (if diabetic) and it needs to be completed 1 hour (for Main OR patients) or 2 hours (scheduled section & [facility] patients) before given arrival time for procedure (NO RED Gatorade and NO Gatorade Zero). Patient verbalized understanding. Discussed with patient options for receiving total joint replacement education and assessed patient's ability and preference. Joint Replacement Guide given to patient during PAT visit since not received a copy within the last year. Encouraged patient/family to read guide thoroughly and notify PAT staff with any questions or concerns. Handout provided directing patient to links to watch online videos related to joint replacement surgery on the [facility] website. The handout gives detailed instructions for joining an online joint replacement class through [employer] or phone conference offered on the and of the month. Patient agreed to participate by watching videos online. Patient verbalized understanding of instructions. 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 An overview of the joint replacement education was provided during the visit including general perioperative instructions that are routine for all surgical patients (PAT PASS, wipes, directions to pre-op, etc.). Clean catch urinalysis not indicated because patient denied recent urinary frequency, urinary urgency, burning/pain upon urination, or flank pain. No recent UTIs. [facility] Pt wants meds to beds. Pt is very anxious and will need some antiaxiety meds dos. documented in this encounter Plan of Treatment Upcoming Encounters Date Type Department Care Team (Late st Contact Info) Description 12/12/2024 11:10 AM EDT Office Visit [facility] [address] [facility] [address] [place] [address] Nelly Rosa PA-C [address] [place] [address] documented as of this encounter Procedures Procedure Name Priority Date/Time Associated Diagnosis Comments ECG 12-LEAD Routine 11/11/2024 3:11 PM EDT CBC WITH AUTO DIFFERENTIAL Routine 11/11/2024 1:33 PM EDT Primary osteoarthritis of left hip APTT Routine 11/11/2024 1:33 PM EDT Primary osteoarthritis of left hip SEDIMENTATION RATE Routine 11/11/2024 1: 33 PM EDT Primary osteoarthritis of left hip PROTIME-INR Routine 11/11/2024 1:33 PM EDT Primary osteoarthritis of left hip CBC AND DIFFERENTIAL Routine 11/11/2024 1:33 PM EDT Primary osteoarthritis of left hip C-REACTIVE PROTEIN Routine 11/11/2024 1: 33 PM EDT Primary osteoarthritis of left hip HEMOGLOBIN A1C Routine 11/11/2024 1:33 PM EDT Primary osteoarthritis of left hip BASIC METABOLIC PANEL Routine 11/11/2024 1:33 PM EDT Primary osteoarthritis of left hip documented in this encounter Results * ECG 12 Lead (11/11/2024 3:11 PM EDT) QT Interval 430 ms ECG QTC Interval 440 ms ECG 11/11/2024 3:11 PM EDT 11/13/2024 10:41 AM EDT Narrative ECG - 11/13/2024 10:41 AM EDT Test Reason : Pre-Op / Pre-Procedure Blood Pressure : */* mmHG Vent. Rate : 63 BPM Atrial Rate : 63 BPM P-R Int : 144 ms QRS Dur : 98 ms QT Int : 430 ms P-R-T Axes : 60 16 37 degrees QTcB Int : 440 ms Normal sinus rhythm Normal ECG No previous ECGs available Confirmed by NATI COSME ([id number]) on 11/13/2024 10:41:05 AM Referred By: Confirmed By: NATI COSME Procedure Note Nati Cosme MD - 11/13/2024 Test Reason : Pre-Op / Pre-Procedure Blood Pressure : */* mmHG Vent. Rate : 63 BPM Atrial Rate : 63 BPM P-R Int : 144 ms QRS Dur : 98 ms QT Int : 430 ms P-R-T Axes : 60 16 37 degrees QTcB Int : 440 ms Normal sinus rhythm Normal ECG No previous ECGs available Confirmed by NATI COSME ([id number]) on 11/13/2024 10:41:05 AM Referred By: Confirmed By: NATI COSME Raymundo Gil MD ECG ORDERABLES Final Result ECG * (ABNORMAL) CBC Auto Differential (11/11/2024 1:33 PM EDT) Pathologist [facility] WBC 8.86 3.40 - 10.80 10*3/mm3 11/11/2024 3:14 PM EDT [facility] RBC 4.38 3.77 - 5.28 10*6/mm3 11/11/2024 3:14 PM EDT [facility] Hemoglobin 12.9 12.0 - 15.9 g/dL 11/11/2024 3:14 PM EDT [facility] Hematocrit 37.9 34.0 - 46.6 % 11/11/2024 3:14 PM EDT [facility] MCV 86.5 79.0 - 97.0 fL 11/11/2024 3:14 PM EDT [facility] MCH 29.5 26.6 - 33.0 pg 11/11/2024 3:14 PM EDT [facility] MCHC 34.0 31.5 - 35.7 g/dL 11/11/2024 3:14 PM EDT [facility] RDW 13.5 12.3 - 15.4 % 11/11/2024 3:14 PM EDT [facility] RDW-SD 41.8 37.0 - 54.0 fl 11/11/2024 3:14 PM EDT [facility] MPV 9.0 6.0 - 12.0 fL 11/11/2024 3:14 PM EDT [facility] Platelets 233 140 - 450 10*3/mm3 11/11/2024 3:14 PM EDT [facility] Neutrophil % 70.2 42.7 - 76.0 % 11/11/2024 3:14 PM EDT [facility] Lymphocyte % 19.5(L) 19.6 - 45.3 % 11/11/2024 3:14 PM EDT [facility] Monocyte % 7.2 5.0 - 12.0 % 11/11/2024 3:14 PM EDT [facility] Eosinophil % 2.3 0.3 - 6.2 % 11/11/2024 3:14 PM EDT [facility] Basophil % 0.6 0.0 - 1.5 % 11/11/2024 3:14 PM EDT [facility] Immature Grans % 0.2 0.0 - 0.5 % 11/11/2024 3:14 PM EDT [facility] Neutrophils, Absolute 6.22 1.70 - 7.00 10*3/mm3 11/11/2024 3:14 PM EDT [facility] Lymphocytes, Absolute 1.73 0.70 - 3.10 10*3/mm3 11/11/2024 3:14 PM EDT [facility] Monocytes, Absolute 0.64 0.10 - 0.90 10*3/mm3 11/11/2024 3:14 PM EDT [facility] Eosinophils, Absolute 0.20 0.00 - 0.40 10*3/mm3 11/11/2024 3:14 PM EDT [facility] Basophils, Absolute 0.05 0.00 - 0.20 10*3/mm3 11/11/2024 3:14 PM EDT [facility] Immature Grans, Absolute 0.02 0.00 - 0.05 10*3/mm3 11/11/2024 3:14 PM EDT [facility] nRBC 0.0 0.0 - 0.2 /100 WBC 11/11/2024 3:14 PM EDT [facility] Blood Venipuncture / Unknown 11/11/2024 1:33 PM EDT 11/11/2024 3:11 PM EDT us Raymundo Gil MD LAB BLOOD ORDERABLES Final Res ult Performing Organization Address [facility] de Phone Number [facility]
[address] [place] [address], * C-reactive protein (11/11/2024 1:33 PM EDT) C-Reactive Protein 0.33 0.00 - 0.50 mg/dL 11/11/2024 3:58 PM EDT [facility] Blood Venipuncture / Unknown 11/11/2024 1:33 PM EDT 11/11/2024 3:11 PM EDT Raymundo Gil MD LAB BLOOD ORDERABLES Final Res ult Performing Organization Address [facility] Co de Phone Number [facility]
[address] [place] [address], * Sedimentation rate (11/11/2024 1:33 PM EDT) Pathologist [facility] Sed Rate 26 0 - 30 mm/hr 11/11/2024 3:31 PM EDT [facility] Blood Venipuncture / Unknown 11/11/2024 1:33 PM EDT 11/11/2024 3:11 PM EDT Raymundo Gil MD LAB BLOOD ORDERABLES Final Res ult Performing Organization Address [facility] Co de Phone Number [facility]
[address] [place] [address], * (ABNORMAL) Hemoglobin A1c (11/11/2024 1:33 PM EDT) Hemoglobin A1C 4.59(L) 4.80 - 5.60 % 11/11/2024 3:56 PM EDT [facility] Blood Venipuncture / Unknown 11/11/2024 1:33 PM EDT 11/11/2024 3:11 PM EDT [facility] - 11/11/2024 3:56 PM EDT Hemoglobin A1C Ranges: Increased Risk for Diabetes 5.7% to 6.4% Diabetes >= 6.5% Diabetic Goal < 7.0% Raymundo Gil MD LAB BLOOD ORDERABLES Final Res ult Performing Organization Address [facility]/ZIP Co de Phone Number [facility]
[address] [place] [address], * APTT (11/11/2024 1:33 PM EDT) PTT 31.7 22.0 - 39.0 seconds 11/11/2024 3:36 PM EDT [facility] Blood Venipuncture / Unknown 11/11/2024 1:33 PM EDT 11/11/2024 3:11 PM EDT [facility] - 11/11/2024 3:36 PM EDT PTT = The equivalent PTT values for the therapeutic range of heparin levels at 0.3 to 0.5 U/ml are 60 to 70 seconds. Raymundo Gil MD LAB BLOOD ORDERABLES Final Res ult Performing Organization Address [facility] Co de Phone Number [facility]
[address] [place] [address], * Protime-INR (11/11/2024 1:33 PM EDT) Protime 14.4 12.2 - 15.3 Seconds 11/11/2024 3:36 PM EDT [facility] INR 1.05 0.89 - 1.12 11/11/2024 3:36 PM EDT [facility] Blood Venipuncture / Unknown 11/11/2024 1:33 PM EDT 11/11/2024 3:11 PM EDT Raymundo Gil MD LAB BLOOD ORDERABLES Final Res ult [facility]
[address] [place] [address], * Basic metabolic panel (11/11/2024 1:33 PM EDT) Glucose 91 65 - 99 mg/dL 11/11/2024 3:58 PM EDT [facility] BUN 11.2 8.0 - 23.0 mg/dL 11/11/2024 3:58 PM EDT [facility] Creatinine 0.65 0.57 - 1.00 mg/dL 11/11/2024 3:58 PM EDT [facility] Sodium 141 136 - 145 mmol/L 11/11/2024 3:58 PM EDT [facility] Potassium 3.9 3.5 - 5.2 mmol/L 11/11/2024 3:58 PM EDT [facility] Chloride 103 98 - 107 mmol/L 11/11/2024 3:58 PM EDT [facility] CO2 24.0 22.0 - 29.0 mmol/L 11/11/2024 3:58 PM EDT [facility] Calcium 9.8 8.6 - 10.5 mg/dL 11/11/2024 3:58 PM EDT [facility] BUN/Creatinine Ratio 17.2 7.0 - 25.0 11/11/2024 3:58 PM EDT [facility] Anion Gap 14.0 5.0 - 15.0 mmol/L 11/11/2024 3:58 PM EDT [facility] eGFR 92.5 >60.0 mL/min/1.7 3 11/11/2024 3:58 PM EDT [facility] Blood Venipuncture / Unknown 11/11/2024 1:33 PM EDT 11/11/2024 3:11 PM EDT Narrative [facility] - 11/11/2024 3:58 PM EDT GFR [...] MD LAB BLOOD ORDERABLES Final Res ult [facility]
[address] [place] [address], documented in this encounter Visit Diagnoses Diagnosis Primary osteoarthritis of left hip documented in this encounter Care Teams Logistics Planning Manager Relationship Specialty Start Date End Date Jay Vernon MD [address] [place], [place] [address] [address] PCP - General Family Medicine 05/14/19 documented as of this encounter
--- OUTSIDE RECORDS SUMMARY | 2024-11-25 05:13 | XMS_ITS | Encounter Summary ---
Author Organization [facility] Address [address] [place] [id number] Care Team Providers Care Automotive Sales Associate Name Role Phone Jay Vernon MD Primary Care Provider [phone] Reason for Visit * Auth/Cert Specialty Diagnoses / Procedures Referred By Contac t Referred To Contact Diagnoses Primary osteoarthritis of left hip Primary osteoarthritis of left hip [M16.12] Procedures [place] ARTHRP ACETBLR/PROX FEM PROSTC AGRFT/ALGRFT Left total hip arthroplasty Referral ID Status Reason Start Date Expiration Date Visits Re quested Visits Authorized [id number] 1 1 Encounter Details Date Type Department Care Team (Late st Contact Info) Description 11/25/2024 5:13 AM EDT - 11/25/2024 6:39 PM EDT Hospital Encounter [place] [phone] Raymundo Gil MD [address] [place] [address] Status post total hip replacement, left (Primary Dx); Primary osteoarthritis of left hip Discharge Disposition: Home or Self Care Social History Tobacco Use Types Packs/Day Years Used Date Smoking Tobacco: Former Cigarettes Smokeless Tobacco: Never Comments:Only smoked at age 15 to look [...] Stability Answer Date Recorded Current Living Arrangements home;other (see comm ents) 11/25/2024 Potentially Unsafe Housing Conditions Not on raúl e 11/25/2024 Family and Community Support Answer Erickson e Recorded Help with Day-to-Day Activities Not on file 01/04/2023 Lonely or Isolated Not on file 01/04/2023 Employment Answer Date Recorded Do you want help finding or keeping work or a rojas b? Not on file 01/04/2023 Disabilities Answer Date Recorded Difficulty Concentrating, Remembering or Making Decisions yes 11/25/2024 Difficulty Managing Errands Independently yes 11/25/2024 Education Answer Date Recorded Help with school or training? Not on file Preferred Language Austrian 11/11/2024 Comments No Sex and Gender Information Value Date Recorded Sex Assigned at Not on file Legal Sex Female 11:34 AM EST Gender Identity Not on file Sexual Orientation Not on file documented as of this encounter Last Filed Vital Signs Vital Sign Reading Time Taken Comments Blood Pressure 176/80 11/25/2024 2:29 PM EDT Pulse 78 11/25/2024 2:29 PM EDT Temperature 34.7 C (94.5 F) 11/25/2024 2:29 PM EDT Respiratory Rate 18 11/25/2024 2:29 PM EDT Oxygen Saturation 97% 11/25/2024 2:29 PM EDT Inhaled Oxygen Concentration - - Weight 73.9 kg (163 lb) 11/25/2024 6:42 AM EDT Height 157.5 cm (5' 2 ) 11/25/2024 6:42 AM EDT Body Mass Index 29.81 11/25/2024 6:42 AM EDT documented in this encounter Functional Status * Question Answer Date of Assessment Author 1. Wish to be (Past 1 Month) No 11/25/2024 6:47 AM EDT Xiao Lugo RN 2. Non-Specific Active Suici nahid Thoughts (Past 1 Month) No 11/25/2024 6:47 AM EDT Teresita Lugo RN * Calculated C-SSRS Risk Score (Lifetime/Recent) Answer Date of Assessment Author No Risk Indicated 11/25/2024 6:47 AM EDT Xiao Lugo RN * [place] Suicide Severity Rating Scale (Screener/Recent Self-Report) Question Answer Date of Assessment Author 6. Suicidal Behavior (Lifetime) No 6:47 AM EDT Xiao Lugo RN documented as of this encounter Discharge Instructions * Discharge Instructions* Pablo Conway RN - 11/25/2024 1:11 PM EDT COLD THERAPY - PATIENT INSTRUCTION SHEET Cold Compression Therapy for your comfort and rehabilitation Your caregivers want you to be productive in your rehab and comfortable during your stay. In keeping with those goals, you will be receiving a Cold Therapy Wrap to help ease post-operative pain and swelling that might keep you from getting back on track! Your Cold Therapy Wrap is effective and [id number], and you will be encouraged to apply it throughout your hospital stay and at home through the duration of your recovery. When you are ready to go home Be sure to take your Cold Therapy Wrap and both sets of Gel Bags with you for continued comfort anduse throughout your rehabilitation. If you don't already have them, ask your nurse or aide to retrieve your Gel Bags from the patient freezer. Home use precautions Always follow your medical professional's application instructions upon discharge. Your Cold Therapy Wrap and Gel Bags are designed to last for months following your surgery. Never heat the Gel Bags.Supervision is advised when using this product on children or geriatric patients. To avoid danger of suffocation, please keep the outer plastic packaging away from children & pets. Cold Therapy Instructions Place Gel Bags in a freezer set ?? of the way to max temperature for at least (4) hours. For best results, lay the Gel Bags flat and [id number] in the freezer. Once frozen, slide Gel Bags into the gel pouch and secure your wrap to the affected area with the straps. Gel wraps that have been stored in a freezer for an extended period of time may require a (10) minute period of softening up in a room temperature environment before application. The gel pouch acts as a protective barrier. NEVER place frozen bags directly onto skin, as this maycause frostbite injury. The Cold Therapy Wrap is designed to be able to be worn while ambulating. The compression straps can be secured well enough so that the wrap won't fall off while moving. An additional protective barrier such as clothing, a washcloth, hand-towel or pillowcase may be used during prolonged treatment applications. The Gel-Pouch and Wrap are both Latex-Free and the Gel Bag ingredients are non toxic. Cold Wrap care instructions The Cold Therapy Wrap may be hand washed and hung to dry when needed. * Attachments The following attachments cannot be sent through Care Everywhere. * Anterior Approach for Total Hip Replacement Surgery: What to Know After (Austrian) * How to Use an Incentive Spirometer (Austrian) * Acetaminophen Capsules or Tablets (Austrian) * Aspirin Tablets (Austrian) * Docusate; Senna Tablets (Austrian) * Oxycodone Capsules or Tablets (Austrian) * Prochlorperazine Tablets (Austrian) documented in this encounter Medications at Time of Discharge aspirin (ASPIR) 81 MG EC tablet Take 1 tablet by mouth 2 (Two) Times a Day. 60 tablet 11/25/2024 4:12 PM EDT 11/26/2024 atorvastatin (LIPITOR) 10 MG tablet Take 1 tablet by mouth Daily. B Complex Vitamins (vitamin b complex) capsule capsule Take 1 capsule by mouth Daily. Super b celecoxib (CeleBREX) 200 MG capsule Take 1 capsule by mouth 2 (Two) Times a Day. 60 capsule 11/13/2024 Cholecalciferol (Vitamin D3) 1.25 MG (63656 UT) capsule Take 1 capsule by mouth 1 (One) Time Per Week. Sunday07/04/2024 diclofenac (VOLTAREN) 75 MG EC tablet Take 1 tablet by mouth 2 (Two) Times a Day. docusate sodium (COLACE) 100 MG capsule Take 1 capsule by mouth 2 (Two) Times a Day for 15 days. 30 capsule 11/25/2024 4:12 PM EDT 11/25/2024 12/10/2024 furosemide (LASIX) 20 MG tablet Take 1 tablet by mouth As Needed. letrozole (FEMARA) 2.5 MG tablet Take 1 tablet by mouth Daily. 09/11/2024 lisinopril (PRINIVIL,ZESTRI L) 20 MG tablet Take 1 tablet by mouth Every Night. Misc Natural Products (WHITE WILLOW BARK PO) Take 1 tablet by mouth Daily. 400 mg oxyCODONE (Roxicodone) 5 MG immediate release tabletIndication s:Status post total hip replacement, left Take 1 tablet by mouth Every 4 (Four) Hours As Needed for Moderate Pain. 30 tablet 11/25/2024 4:12 PM EDT 11/25/2024 pilocarpine (SALAGEN) 5 MG tablet Take 1 tablet by mouth 2 (Two) Times a Week. Probiotic Product (PROBIOTIC DAILY PO) Take 1 tablet by mouth Daily. prochlorperazine (COMPAZINE) 5 MG tablet Take 1 tablet by mouth Every 6 (Six) Hours As Needed for Nausea or Vomiting. 12 tablet 11/25/2024 4:12 PM EDT 11/25/2024 Turmeric (QC TUMERIC COMPLEX PO) Take 1 tablet by mouth 1 (One) Time Per Week. Sunday acetaminophen (TYLENOL) 500 MG tablet Take 2 tablets by mouth Every 8 (Eight) Hours for 7 days. Take every 8 hours as needed after 1 week 60 tablet 11/25/2024 4:12 PM EDT 11/25/2024 12/05/2024 documented as of this encounter H&P Notes * Millie Cole MD - 11/25/2024 2:37 PM EDT Patient Name: Shireen Rain : 1950 DOS: 11/25/2024 Attending: Raymundo Gil MD Primary Care Provider: Jay Vernon MD Chief complaint: Left hip pain Subjective Patient is a pleasant 74 y.o. female presented for scheduled surgery by Dr. Gil Per his note ( The patient is a 74 y.o. female with a history of debilitating left hip pain secondary to osteoarthritis, that failed to improve in spite of conservative treatment. The patient opted for a left total hip arthroplasty at this time and consented for the procedure. Please see my office notes for details with regard to preoperative counseling and operative rationale. ) Patient underwent left total hip arthroplasty under spinal anesthesia, tolerated surgery well, was admitted for further management. Seen postoperatively, doing okay, good pain control, but dealing with issues related to nausea and emesis. Received Zofran with limited effectiveness. Patient has no of DVT and/or PE. Reviewed with patient past medical history and home medications. Allergies: No Known Allergies Meds: Medications Prior to Admission Medication Sig Dispense Refill Last Dose/Taking atorvastatin (LIPITOR) 10 MG tablet Take 1 tablet by mouth Daily. 11/24/2024 B Complex Vitamins (vitamin b complex) capsule capsule Take 1 capsule by mouth Daily. Super b Past Week celecoxib (CeleBREX) 200 MG capsule Take 1 capsule by mouth 2 (Two) Times a Day. 60 capsule 0 11/24/2024 Chlorhexidine Gluconate 4 % solution Apply 1 Application topically to the appropriate area as directed Daily. Shower with solution as directed for 5 days prior to surgery 236 mL 0 11/25/2024 at 3:00 AM Cholecalciferol (Vitamin D3) 1.25 MG (47226 UT) capsule Take 1 capsule by mouth 1 (One) Time Per Week. Sunday Past Week diclofenac (VOLTAREN) 75 MG EC tablet Take 1 tablet by mouth 2 (Two) Times a Day. Past Month furosemide (LASIX) 20 MG tablet Take 1 tablet by mouth As Needed. Past Month letrozole (FEMARA) 2.5 MG tablet Take 1 tablet by mouth Daily. Past Week lisinopril (PRINIVIL,ZESTRIL) 20 MG tablet Take 1 tablet by mouth Every Night. 11/24/2024 Misc Natural Products (WHITE WILLOW BARK PO) Take 1 tablet by mouth Daily. 400 mg Past Month pilocarpine (SALAGEN) 5 MG tablet Take 1 tablet by mouth 2 (Two) Times a Week. Past Week Probiotic Product (PROBIOTIC DAILY PO) Take 1 tablet by mouth Daily. Past Month Turmeric (QC TUMERIC COMPLEX PO) Take 1 tablet by mouth 1 (One) Time Per Week. 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 - no issues just all over body Urinary tract infection Wears glasses readers Wears partial dentures top bilat - removeable Past Surgical History: Procedure Laterality Date BREAST LUMPECTOMY Right CATARACT EXTRACTION, BILATERAL Bilateral CHOLECYSTECTOMY COLONOSCOPY LAPAROSCOPIC INGUINAL HERNIA REPAIR Right mesh in place WISDOM TOOTH EXTRACTION Family History Problem Relation Age of Onset Multiple myeloma Sister Social History Tobacco Use Smoking status: Former Types: Cigarettes Smokeless tobacco: Never Tobacco comments: Only smoked at age 15 to look cool- not social just few times Vaping Use Vaping status: Never Used Substance Use Topics Alcohol use: Yes Alcohol/week: 1.0 standard drink of alcohol Types: 1 Glasses of wine per week Drug use: Never Review of Systems Pertinent items are noted in HPI Vital Signs BP 165/78 (BP Location: Right arm, Patient Position: Lying) Pulse 64 Temp 96 ??F (35.6 ??C) (Axillary) Resp 18 Ht 157.5 cm (62 ) Wt 73.9 kg (163 lb) SpO2 100% BMI 29.81 kg/m?? Physical Exam: General Appearance: Alert, cooperative, uncomfortable due to nausea Head: Normocephalic, without obvious abnormality, atraumatic Eyes: Lids and lashes normal, conjunctivae and sclerae normal, no icterus, no pallor Ears: Ears appear intact with no abnormalities noted Throat: No oral lesions, no thrush, oral mucosa moist Neck: No adenopathy, supple, trachea midline, no thyromegaly Lungs: Clear to auscultation,respirations regular, even and unlabored. No wheezes or rales. Heart: Regular rhythm and normal rate, normal S1 and S2, no murmur, no gallop Abdomen: Normal bowel sounds, no masses, no organomegaly, soft nontender, nondistended, no guarding, no rebound tenderness Genitalia: Deferred Extremities: Left LE, CDI dressing over left hip. No clubbing cyanosis or edema Pulses: Pulses palpable and equal bilaterally Skin: No bleeding, bruising or rash Neurologic: Cranial nerves 2 - 12 grossly intact, intact flexion and dorsiflexion bilateral feet I reviewed the patient's new clinical results. Invalid input(s): NEUTOPHILPCT Results from last 7 days Lab Units 11/25/24 0701 POTASSIUM mmol/L 4.0 Lab Results Component Value Date HGBA1C 4.59 (L) 11/11/2024 Latest Reference Range & Units 11/11/24 13:33 Sodium 136 - 145 mmol/L 141 Potassium 3.5 - 5.2 mmol/L 3.9 Chloride 98 - 107 mmol/L 103 CO2 22.0 - 29.0 mmol/L 24.0 Anion Gap 5.0 - 15.0 mmol/L 14.0 BUN 8.0 - 23.0 mg/dL 11.2 Creatinine 0.57 - 1.00 mg/dL 0.65 BUN/Creatinine Ratio 7.0 - 25.0 17.2 eGFR >60.0 mL/min/1.73 92.5 Glucose 65 - 99 mg/dL 91 Calcium 8.6 - 10.5 mg/dL 9.8 Hemoglobin A1C 4.80 - 5.60 % 4.59 (L) C-Reactive Protein 0.00 - 0.50 mg/dL 0.33 Protime 12.2 - 15.3 Seconds 14.4 INR 0.89 - 1.12 1.05 PTT 22.0 - 39.0 seconds 31.7 WBC 3.40 - 10.80 10*3/mm3 8.86 RBC 3.77 - 5.28 10*6/mm3 4.38 Hemoglobin 12.0 - 15.9 g/dL 12.9 Hematocrit 34.0 - 46.6 % 37.9 Platelets 140 - 450 10*3/mm3 233 RDW 12.3 - 15.4 % 13.5 MCV 79.0 - 97.0 fL 86.5 MCH 26.6 - 33.0 pg 29.5 MCHC 31.5 - 35.7 g/dL 34.0 (L): Data is abnormally low Assessment and Plan: Primary osteoarthritis of left hip Degenerative arthritis of hip Status post total hip replacement, left GERD (gastroesophageal reflux disease) HTN (hypertension) Plan: 1. PT/OT, Weight bearing as tolerated left LE. Total hip precautions 2. Pain control-prns 3. IS-encourage 4. DVT proph- Mechanicals and aspirin 5. Bowel regimen 6. Resume home medications as appropriate 7. DC planning for home -Postop nausea and vomiting, symptomatic treatment Patient is very motivated to work with physical therapy and achieve mobility and pain control amongother goals for possible discharge home later in the day. We reviewed these goals and discussed with patient tracking progress for the next few hours and if all is achieved to receive next antibiotic prophylactic dose and be discharged home. Nausea and emesis will need to be controlled and she will need to tolerate p.o. diet prior to discharge. We discussed medications and precriptions at time of discharge including DVT prophylaxis, pain control, and bowel regimen. All questions were answered . Patient expressed understanding and agreement. Dragon disclaimer: Part of this encounter note is an electronic cooking chef/translation of spoken language to printed text. The electronic translation of spoken language may permit erroneous, or at times, nonsensicalwords or phrases to be inadvertently transcribed; Although I have reviewed the note for such errors, some may still exist. Millie Cole MD 11/25/24 14:37 EDT * Raymundo Gil MD - 11/25/2024 6:57 AM EDT H&P reviewed. The patient was examined and there are no changes to the H&P. Pre-Op H&P Shireen Rain [id number] 1950 Chief complaint: I am here for a left hip replacement. Subjective: Patient is a 74 y.o.female presents for scheduled surgery by Dr. Gil. Patient anticipates a Left total hip arthroplasty - Left today. Denies chest pain or chest tightness and shortness of breath. Denies allergies to latex or contrast dye. Review of Systems: Constitutional-- No fever, chills or sweats. No fatigue. CV-- No chest pain, palpitation or syncope Resp-- No SOB, cough, hemoptysis Skin--No rashes or lesions Allergies: No Known Allergies Home Meds: Medications Prior to Admission Medication Sig Dispense Refill Last Dose/Taking atorvastatin (LIPITOR) 10 MG tablet Take 1 tablet by mouth Daily. 11/24/2024 B Complex Vitamins (vitamin b complex) capsule capsule Take 1 capsule by mouth Daily. Super b Past Week celecoxib (CeleBREX) 200 MG capsule Take 1 capsule by mouth 2 (Two) Times a Day. 60 capsule 0 11/24/2024 Chlorhexidine Gluconate 4 % solution Apply 1 Application topically to the appropriate area as directed Daily. Shower with solution as directed for 5 days prior to surgery 236 mL 0 11/25/2024 at 3:00 AM Cholecalciferol (Vitamin D3) 1.25 MG (18882 UT) capsule Take 1 capsule by mouth 1 (One) Time Per Week. Sunday Past Week diclofenac (VOLTAREN) 75 MG EC tablet Take 1 tablet by mouth 2 (Two) Times a Day. Past Month furosemide (LASIX) 20 MG tablet Take 1 tablet by mouth As Needed. Past Month letrozole (FEMARA) 2.5 MG tablet Take 1 tablet by mouth Daily. Past Week lisinopril (PRINIVIL,ZESTRIL) 20 MG tablet Take 1 tablet by mouth Every Night. 11/24/2024 Misc Natural Products (WHITE WILLOW BARK PO) Take 1 tablet by mouth Daily. 400 mg Past Month pilocarpine (SALAGEN) 5 MG tablet Take 1 tablet by mouth 2 (Two) Times a Week. Past Week Probiotic Product (PROBIOTIC DAILY PO) Take 1 tablet by mouth Daily. Past Month Turmeric (QC TUMERIC COMPLEX PO) Take 1 tablet by mouth 1 (One) Time Per Week. 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 - no issues just all over body Urinary tract infection Wears glasses readers Wears partial dentures top bilat - removeable PSH: Past Surgical History: Procedure Laterality Date BREAST LUMPECTOMY Right CATARACT EXTRACTION, BILATERAL Bilateral CHOLECYSTECTOMY COLONOSCOPY LAPAROSCOPIC INGUINAL HERNIA REPAIR Right mesh in place WISDOM TOOTH EXTRACTION Immunization History: Influenza: yes Pneumococcal: yes Tetanus: yes Social History: Tobacco: Social History Tobacco Use Smoking Status Former Types: Cigarettes Smokeless Tobacco Never Tobacco Comments Only smoked at age 15 to look cool- not social just few times Alcohol: Social History Substance and Sexual Activity Alcohol Use Yes Alcohol/week: 1.0 standard drink of alcohol Types: 1 Glasses of wine per week Physical Exam:BP 137/69 (BP Location: Right arm, Patient Position: Lying) Pulse 69 Temp 97.2 ??F (36.2 ??C) (Temporal) Resp 18 Ht 157.5 cm (62 ) Wt 73.9 kg (163 lb) SpO2 96% BMI 29.81 kg/m?? General Appearance: Alert, cooperative, no distress, appears stated age Head: Normocephalic, without obvious abnormality, atraumatic Lungs: Clear to auscultation bilaterally, respirations unlabored Heart: Regular rate and rhythm, S1 and S2 normal Abdomen: Soft without tenderness Extremities: Extremities normal, atraumatic, no cyanosis or edema Skin: Skin color, texture, turgor normal, no rashes or lesions Neurologic: Grossly intact Results Review: LABS: Lab Results Component Value Date WBC 8.86 11/11/2024 HGB 12.9 11/11/2024 HCT 37.9 11/11/2024 MCV 86.5 11/11/2024 PLT 233 11/11/2024 NEUTROABS 6.22 11/11/2024 GLUCOSE 91 11/11/2024 BUN 11.2 11/11/2024 CREATININE 0.65 11/11/2024 NA 141 11/11/2024 K 3.9 11/11/2024 CL 103 11/11/2024 CO2 24.0 11/11/2024 CALCIUM 9.8 11/11/2024 RADIOLOGY: Imaging Results (Last 72 Hours) No results found for the last 72 hours. I reviewed the patient's new clinical results. Cancer Staging (if applicable) Cancer Patient: __ yes __no __unknown; If yes, clinical stage T:__ N:__M:__, stage group or __N/A Impression: Primary osteoarthritis of left hip Plan: Left total hip arthroplasty - Left Jenn Rodriguez PA-C 11/25/2024 06:57 EDT Agree with above - plan for left JEAN Raymundo Gil MD 11/25/24 07:27 EDT Source Note - Raymundo Gil MD - 10/31/2024 10:00 AM EDT Images from the original note were not included. [facility] [place] Orthopaedic Surgery Clinic Note Subjective Chief Complaint [...] mouth Daily. Cholecalciferol (Vitamin D3) 1.25 MG (62445 UT) capsule Take 1 capsule by mouth [...] Instability: None Deformities: None Functional testing: Positive [facility] Short on the left compared to the right Imaging/Studies Imaging Results (Last 24 Hours) Procedure Component Value Units Date/Time XR Hip With or Without Pelvis 2 - 3 View Left [[id number]] Resulted: 10/31/241047 Updated: 10/31/241047 Narrative: Left Hip Radiographs Indication: left hip pain Views: low AP pelvis and lateral of the left hip Comparison: no prior studies available for review Findings: Advanced arthritis, with [id number] contact, pseudosubluxation of the hip laterally, with [...] conservative treatment modalities have not resulted in terminal block assembler pain relief. The symptoms have progressed to [...] Gil MD 10/31/24 11:02 EDT Dictated Utilizing Dragon Dictation documented in this encounter Nursing Notes * Chrissie Nava, OT - 11/25/2024 5:28 PM EDT Goal Outcome Evaluation: Plan of Care Reviewed With: patient, significant other Outcome Evaluation: OT educated pt and SO on ADL retraining for comfort, home safety and transfer training. Issued self-care kit and gait belt for home and educated on use. She lives alone, however SO will be staying with her to assist. Recommend DC home with initial 24/7 assist. Anticipated Discharge Disposition (OT): home with 24/7 care * Negra Gutierrez, PT - 11/25/2024 3:52 PM EDT Goal Outcome Evaluation: Plan of Care Reviewed With: patient, friend Progress: improving Outcome Evaluation: Pt ambulated 200 ft w/ FWW and navigated 3 steps w/ handrail use, CGA. No LOB or knee buckling. No nausea reported this session. Pt is functionally cleared by PT. Recommend d/c home w/ assist and HHPT once medically appropriate. Anticipated Discharge Disposition (PT): home with assist, home with home health * Negra Gutierrez, PT - 11/25/2024 2:14 PM EDT Goal Outcome Evaluation: Plan of Care Reviewed With: patient, friend Outcome Evaluation: PT eval completed. Pt presents s/p L JEAN w/ LLE deficits, nausea and vomiting, balance deficits, and decreased activity tolerance. Pt ambulated 100 ft w/ FWW, CGA x2. No LOB or knee buckling noted. Unable to assess stairs d/t nausea and vomiting during ambulation. RN notified. Pt would benefit from IP PT services while hospitalized. Recommend d/c home w/ assist and HHPT once medically appropriate. Anticipated Discharge Disposition (PT): home with assist, home with home health documented in this encounter OR Notes * Op Note - Raymundo Gil MD - 11/25/2024 7:57 AM EDT DATE OF PROCEDURE: 11/25/24 PREOPERATIVE DIAGNOSIS: left hip arthritis POSTOPERATIVE DIAGNOSIS: left hip arthritis PROCEDURE PERFORMED: left total hip arthroplasty with Hernandez & Nephew components, anterior modified Quiroz-Tesfaye approach Surgical Approach: Hip Modified Anterior (Quiroz-Tesfaye) IMPLANTS: # 48 press-fit R3 cup, 30 screw, Oxinium dual mobility OR30 liner, # 2 standard offset press-fit Polar stem, +0 x 22 Oxinium head with 22 x 36 dual mobility OR30 head SURGEON: Raymundo Gil MD AUTO SEAT COVER INSTALLER: Jenn Rodriguez PA-C (Jenn Rodriguez PA-C was present and necessary for positioning, draping, retraction, instrumentation and closure.) SPECIMENS: None IMPLANTS: Implant Name Type Inv. Item Serial No. Financial Services Rep Lot No. LRB No. Used Action DEV CONTRL TISS STRATAFIX SPIRAL MNCRYL UD 3/0 PLS 60CM - [id number] Implant DEV CONTRL TISS STRATAFIX SPIRAL MNCRYL UD 3/0 PLS 60CM [employer] DIV [employer] J AND J [id number] Left 1 Implanted DEV CONTRL TISS STRATAFIX SYMM PDS PLUS JARRETT CT-1 45CM - [id number] Implant DEV CONTRL TISS STRATAFIX SYMM PDS PLUS JARRETT CT-1 45CM [employer] DIV OF J AND J [id number] Left 1 Implanted INSRT HIP OR30 2/MOBL XLPE SZ22/36 - [id number] Implant INSRT HIP OR30 2/MOBL XLPE 22/36 HERNANDEZ [employer] NEP[employer]W [id number] Left 1 Implanted LINER HIP OR30 2/MOBL SZ36/48 - [id number] Implant LINER HIP OR30 2/MOBL SZ36/48 [employer] [id number] Left 1 Implanted SCRW SPH HD REFLECTION 6.5X30MM - [id number] Implant SCRW SPH HD REFLECTION 6.5X30MM [employer] [id number] Left 1 Implanted SHLL ACET R3 3H STD 48MM - [id number] Implant SHLL ACET R3 3H STD 48MM [employer] [id number] Left 1 Implanted STEM FEM/HIP POLARSTEM W/COLR STD SZ2 - [id number] Implant STEM FEM/HIP POLARSTEM W/COLR STD SZ2 [employer] [id number] Left 1 Implanted HD FEM/HIP OXINIUM TPR 12/14 22MM PLS0 - [id number] Implant HD FEM/HIP OXINIUM TPR 12/14 22MM [id number] AND NEPHEW [id number] Left 1 Implanted ANESTHESIA: Spinal STAFF: Conveyor Feeder Offbearer: Reagan Duran RN Physician Interactive Media Designer: Jenn Rodriguez PA-C Shuttle Threader: Quinton Camilo Person: Stevo Granger Nancy Vendor Automobile Upholsterer Apprentice: Reagan Bernal ([employer]) Bilingual Receptionist: Jenn Brownlee ESTIMATED BLOOD LOSS: 50 cc COMPLICATIONS: None PREOPERATIVE ANTIBIOTICS: Ancef 2 g INDICATIONS: The patient is a 74 y.o. female with a history of debilitating left hip pain secondaryto osteoarthritis, that failed to improve in spite of conservative treatment. The patient opted fora left total hip arthroplasty at this time and consented for the procedure. Please see my office notes for details with regard to preoperative counseling and operative rationale. DESCRIPTION OF PROCEDURE: The patient was positively identified in the preoperative holding area, brought to the operative suite, and placed in a supine position. After adequate spinal anesthetic hadbeen achieved, the patient was placed in the supine position with a well padded folded blanket bolster under the left flank area, leaving the buttock free. After sterile prep and drape of the left hip and lower extremity, as well as draping the non-operative extremity to allow access for limb length assessment, a timeout procedure was performed to confirm the operative site, as well as the other parameters. After placing a bump under the knee, a skin incision was made over the lateral border of the tensorfascia latae from the level of the anterior superior iliac spine distally on the anterior aspect ofthe hip for a modified Quiroz-Tesfaye approach. Following a sharp skin incision, dissection was carried down to the level of the fascia, ensuring clear identification of the interval between the tensorand the fascia laterally. Fascia was then incised from proximal to distal, leaving a good cuff of tissue for later repair, then working form distal to proximal perforating vessels were identified andcauterized, including the perforating vessels along the anterior edge of the gluteus medius. With the anterior edge of the gluteus medius identified, a Cobra retractor was placed on the capsule over the superior aspect of the femoral neck. After identifying the superior edge of the vastus lateralisdistally, a second Cobra retractor was placed over the capsule overlying the inferior femoral neck.The reflected head of the rectus femoris was identified and a single prong acetabular retractor was placed under the rectus. The knee bump was then removed, leg externally rotated, and anterior capsule excised and the labrum incised superiorly. Cobra retractors were repositioned on the exposed femoral neck both superiorly and inferiorly. Description of femoral head: Complete eburnation, osteophytes at the head neck junction, thickening of the capsule, clear joint effusion. A neck cut was then made at the base of the neck with the aid of an oscillating saw blade and the head extracted without difficulty. Acetabular exposure was then obtained with careful retractor placement and the labrum was then removed from the rim of the acetabulum, preserving the transverse acetabular ligament. Description of acetabulum: Complete degeneration and wear. With the transverse acetabular ligament as a reference forcup positioning, the acetabulum was sequentially reamed up to 48 to accommodate a 48 press-fit R3 cup, which had good press-fit characteristics. A single 30 mm screw was placed which had excellent purchase, followed by an Oxinium liner to accommodate a 36 dual mobility head. Attention was then redirected towards the femoral aspect. The non-operative limb was then placed lily padded Byrd stand, to allow for appropriate positioning of the operative limb. Using the bone hook for traction in the calcar region of the proximal femur, the posterior capsule was released adjacent to the greater trochanter to allow for delivery of the proximal femur with a double fang retractor. After appropriate external rotation of the proximal femur and further adduction of the leg, a Felipe retractor was placed in the region of the calcar and femoral preparations were made to accommodate the femoral stem. Box osteotome was used to prepare the lateral aspect, followed by the T-handlecanal finder, then sequential broaching of the femur to accommodate a # 2 broach, standard offset neck, with a +0 x 32 head for temporary purposes and determining stability only. Trial reduction was performed, full arc of motion noted, with appropriate limb lengths after leveling the table. Intraoperative fluoroscopy showed appropriate implant alignment and leg lengths. The hip was again dislocated and the final # 2 standard offset press-fit Polar stem placed, followed by +0 x 22 Oxinium head with a 22 x 36 dual mobility OR30 head, with the same reduction characteristics were noted as with the trial with no dislocation throughout the full arc of motion and appropriate limb lengths. Therefore, the hip was copiously irrigated and attention directed towards closure. Fascia latae wasclosed with #1 Vicryl in an interrupted vdppdb-hd-rkvcy fashion in 3 strategic locations both proximally, distally and in the central portion, followed by oversewing this from distal to proximal witha #1 StrataFix symmetric, which nicely sealed that layer, followed by closure of the subcutaneous layer with 2-0 Vicryl and the skin with 3-0 StrataFix in a running subcuticular fashion. Adhesive wound closure dressing was applied followed by a sterile dressing with 4 x 4s secured with micropore tape. The patient tolerated the procedure well and was brought to the recovery room in good condition. POSTOPERATIVE PLAN: 1. The patient will begin early range of motion and weight-bearing per the post anterior total hip arthroplasty protocol. 2. I anticipate brief hospitalization for initial rehabilitation and pain control followed by continued rehabilitation outpatient physical therapy setting. Patient likely ready for discharge later today as long as she is cleared medically and by physical therapy. Follow-up in 3 weeks as planned. 3. Postoperative medical management with Dr. Cole. 4. Postoperative DVT prophylaxis with aspirin 81 mg p.o. twice daily for 1 month. 5. Postoperative IV antibiotics with Ancef. Raymundo Gil MD 11/25/24 09:37 EDT documented in this encounter Miscellaneous Notes * Therapy Evaluation - Chrissie Nava, OT - 11/25/2024 5:29 PM EDT Images from the original note were not included. Patient Name: Shireen Rain : 1950 Today's Date: 11/25/2024 Admit Date: 11/25/2024 Visit Dx: ICD-10-CM ICD-9-CM 1. Status post total hip replacement, left Z96.642 V43.64 2. Primary osteoarthritis of left hip M16.12 715.15 Patient Active Problem List Diagnosis Primary osteoarthritis of left hip Degenerative arthritis of hip Status post total hip replacement, left GERD (gastroesophageal reflux disease) HTN (hypertension) Past Medical History: Diagnosis Date Acid reflux Anesthesia complication trouble breathing- mucus build up- during colonoscopy - only once- might need some antianxiety medsdos Anxiousness Cancer right breast cancer Gallbladder abscess History of shingles 2 years ago- face and back [place] (hard of hearing) no hearing aids Hypertension Migraines h/o Osteoarthritis Skin disorder hereditary - skin mole growths - no issues just all over body Urinary tract infection Wears glasses readers Wears partial dentures top bilat - removeable Past Surgical History: Procedure Laterality Date BREAST LUMPECTOMY Right CATARACT EXTRACTION, BILATERAL Bilateral CHOLECYSTECTOMY COLONOSCOPY LAPAROSCOPIC INGUINAL HERNIA REPAIR Right mesh in place WISDOM TOOTH EXTRACTION General Information Row Name 11/25/24 165 OT Time and Intention Document Type evaluation -AR Mode of Treatment individual therapy;occupational therapy -AR Row Name 11/25/24 754 General Information Patient Profile Reviewed yes -AR Prior Level of Function independent:;all household mobility;community mobility;gait;transfer;ADL's;driving;shopping -AR Existing Precautions/Restrictions fall;left;hip, anterior;other (see comments) left modified anterior approach -AR Barriers to Rehab none identified -AR Row Name 11/25/241655 Living Environment Current Living Arrangements home;other (see comments) SO will be staying with her -AR People in Home alone -AR Row Name 11/25/241655 Home Main Entrance Number of Stairs, Main Entrance one -AR Stair Railings, Main Entrance railing on right side (ascending) -AR Row Name 11/25/241655 Stairs Within Home, Primary Stairs, Within Home, Primary Pt has walk-in shower with seat and raised commode. -AR Row Name 11/25/241655 Cognition Orientation Status (Cognition) oriented x 4 -AR Row Name 11/25/241655 Safety Issues/Impairments Affecting Functional Mobility Safety Issues Affecting Function (Mobility) safety precautions follow- through/compliance;safety precaution awareness -AR Impairments Affecting Function (Mobility) balance;endurance/activity tolerance;pain;strength;range of motion (ROM) -AR User Anthony (r) = Recorded By, (t) = Taken By, (c) = Cosigned By Initials Name Provider Type Chrissie Zapata, OT Occupational Therapist Mobility/ADL's Row Name 11/25/241657 Bed Mobility Comment, (Bed Mobility) Issued leg wire walker and educated pt and SO on use of device to assist with bed mobility and car transfers. -CT Row Name 11/25/241657 Transfers Transfers sit-stand transfer;stand-sit transfer -AR Comment, (Transfers) Cues for hand placement and to advance LLE during rmsku-fy-xte transition for comfort. Educated pt and SO on safe car transfer technique. -CT Row Name 11/25/241657 Sit-Stand Transfer Sit-Stand Callaway (Transfers) verbal cues;contact guard -AR Assistive Device (Sit-Stand Transfers) walker, front-wheeled -AR Row Name 11/25/241657 Stand-Sit Transfer Stand-Sit Callaway (Transfers) contact guard;verbal cues -AR Assistive Device (Stand-Sit Transfers) walker, front-wheeled -AR Row Name 11/25/241657 Activities of Daily Living BADL Assessment/Intervention bathing;upper body dressing;lower body dressing;feeding -AR Row Name 11/25/241657 Mobility Extremity Weight-bearing Status left lower extremity -AR Left Lower Extremity (Weight-bearing Status) weight-bearing as tolerated (WBAT) -CT Row Name 11/25/241657 Bathing Assessment/Intervention Comment, (Bathing) Issued LH sponge to assist at home and educated on use. -CT Row Name 11/25/241657 Upper Body Dressing Assessment/Training Callaway Level (Upper Body Dressing) doff;front opening garment;pajama/robe;don;pull-over garment;supervision -AR Position (Upper Body Dressing) supported sitting -AR Row Name 11/25/24 1658 Lower Body Dressing Assessment/Training Callaway Level (Lower Body Dressing) don;pants/bottoms;socks;contact guard assist;shoes/slippers;minimum assist (75% patient effort) -AR Assistive Devices (Lower Body Dressing) chocolate refining roller;sock-aid;long-handled shoe horn -AR Position (Lower Body Dressing) supported standing;unsupported sitting -AR Comment, (Lower Body Dressing) Educated pt on modified-anterior hip precautions, ADL retraining forcomfort and manav-dressing. Issued self-care kit and educated on use. -AR User Anthony (r) = Recorded By, (t) = Taken By, (c) = Cosigned By Initials Name Provider Type Chrissie Zapata OT Occupational Therapist Obj/Interventions Row Name 11/25/24 1722 Sensory Assessment (Somatosensory) Sensory Assessment (Somatosensory) UE sensation intact -AR Row Name 11/25/24 1722 Vision Assessment/Intervention Visual Impairment/Limitations WNL -AR Row Name 11/25/24 1722 Range of Motion Comprehensive General Range of Motion no range of motion deficits identified -AR Row Name 11/25/24 1722 Strength Comprehensive (MMT) General Manual Muscle Testing (MMT) Assessment no strength deficits identified -AR Comment, General Manual Muscle Testing (MMT) Assessment BUE WFL for ADL -AR Row Name 11/25/24 1722 Balance Balance Assessment sitting static balance;sitting dynamic balance;standing static balance;standing dynamic balance -AR Static Sitting Balance supervision -AR Dynamic Sitting Balance supervision -AR Position, Sitting Balance unsupported;sitting in chair -AR Static Standing Balance contact guard -AR Dynamic Standing Balance contact guard -AR Position/Device Used, Standing Balance supported;walker, rolling -AR User Anthony (r) = Recorded By, (t) = Taken By, (c) = Cosigned By Initials Name Provider Type Chrissie Zapata OT Occupational Therapist Goals/Plan Row Name 11/25/24 1726 Transfer Goal 1 (OT) Activity/Assistive Device (Transfer Goal 1, OT) chn-qz-cczaf/iasio-tv-oyu;toilet;walker, rolling -AR Callaway Level/Cues Needed (Transfer Goal 1, OT) contact guard required;verbal cues required -AR Time Frame (Transfer Goal 1, OT) assisted goal (LTG);2 days -AR Progress/Outcome (Transfer Goal 1, OT) goal partially met -AR Row Name 11/25/24 172 Dressing Goal 1 (OT) Activity/Device (Dressing Goal 1, OT) lower body dressing;chocolate refining roller;sock-aid -AR Callaway/Cues Needed (Dressing Goal 1, OT) contact guard required;verbal cues required -AR Time Frame (Dressing Goal 1, OT) short term goal (STG);1 day -AR Progress/Outcome (Dressing Goal 1, OT) goal met -AR Row Name 11/25/24 172 Therapy Assessment/Plan (OT) Planned Therapy Interventions (OT) adaptive equipment training;BADL retraining;functional balance retraining;IADL retraining;occupation/activity based interventions;patient/caregiver education/training;transfer/mobility retraining;edema control/reduction -AR User Anthony (r) = Recorded By, (t) = Taken By, (c) = Cosigned By Initials Name Provider Type AR Chrissie Nava, OT Occupational Therapist Clinical Impression Row Name 11/25/24 172 Pain Assessment Pretreatment Pain Rating 2/10 -AR Posttreatment Pain Rating 4/10 -AR Pain Location hip -AR Pain Side/Orientation left;generalized -AR Pain Management Interventions activity modification encouraged;cold applied;movement retraining implemented -AR Response to Pain Interventions activity participation with tolerable pain -AR Row Name 11/25/24 172 Plan of Care Review Plan of Care Reviewed With patient;significant other -AR Outcome Evaluation OT educated pt and SO on ADL retraining for comfort, home safety and transfer training. Issued self-care kit and gait belt for home and educated on use. She lives alone, however SOwill be staying with her to assist. Recommend DC home with initial 16/10 assist. -AR Row Name 11/25/24 172 Therapy Assessment/Plan (OT) Rehab Potential (OT) good -AR Criteria for Skilled Therapeutic Interventions Met (OT) yes -AR Therapy Frequency (OT) daily -AR Row Name 11/25/24 172 Therapy Plan Review/Discharge Plan (OT) Equipment Needs Upon Discharge (OT) walker, rolling -AR Anticipated Discharge Disposition (OT) home with 24/7 care -AR Row Name 11/25/24 1724 Vital Signs Pre Patient Position Sitting -AR Intra Patient Position Standing -AR Post Patient Position Sitting -AR Row Name 11/25/24 1724 Positioning and Restraints Pre-Treatment Position sitting in chair/recliner -AR Post Treatment Position chair -AR In Chair notified nsg;reclined;call light within reach;encouraged to call for assist;exit alarm on;with family/caregiver;legs elevated -AR User Anthony (r) = Recorded By, (t) = Taken By, (c) = Cosigned By Initials Name Provider Type Chrissie Zapata, OT Occupational Therapist Outcome Measures Row Name 11/25/24 1727 How much help from another is currently needed... Putting on and taking off regular lower body clothing? 3 -AR Bathing (including washing, rinsing, and drying) 3 -AR Toileting (which includes using toilet bed chadwick or urinal) 3 -AR Putting on and taking off regular upper body clothing 3 -AR Taking care of personal grooming (such as brushing teeth) 3 -AR Eating meals 3 -AR AM-PAC 6 Clicks Score (OT) 18 -AR Row Name 11/25/24 1414 11/25/24 1050 How much help from another person do you currently need... Turning from your back to your side while in flat bed without using bedrails? 3 -LH 2 -TB Moving from lying on back to sitting on the side of a flat bed without bedrails? 3 - 2 -TB Moving to and from a bed to a chair (including a wheelchair)? 3 - 2 -TB Standing up from a chair using your arms (e.g., wheelchair, bedside chair)? 3 - 2 -TB Climbing 3-5 steps with a railing? 2 - 1 -TB To walk in hospital room? 3 -LH 2 -TB AM-PAC 6 Clicks Score (PT) 17 - 11 -TB Highest Level of Mobility Goal Stand (1 or More Minutes)-5 -LH Move to Chair/Commode-4 -TB Row Name 11/25/24 1727 11/25/24 1414 Functional Assessment Outcome Measure Options AM-PAC 6 Clicks Daily Activity (OT) -AR AM-PAC 6 Clicks Basic Mobility (PT);PADD - User Anthony (r) = Recorded By, (t) = Taken By, (c) = Cosigned By Initials Name Provider Type AR Chrissie Nava OT Occupational Therapist Pablo Barnes, RN Registered Nurse Negra Hernandez, PT Physical Therapist Occupational Therapy Education Title: PT OT RN CLINICAL COORDINATOR Therapies (Done) Topic: Occupational Therapy (Done) Point: ADL training (Done) Learning Progress Summary Patient Eager, E,TB,D,H, VU,DU by AR at 11/25/2024 1728 Significant Other Eager, E,TB,D,H, VU,DU by AR at 11/25/2024 1728 Point: Precautions (Done) Learning Progress Summary Patient Eager, E,TB,D,H, VU,DU by AR at 11/25/2024 1728 Significant Other Eager, E,TB,D,H, VU,DU by AR at 11/25/2024 1728 Point: Body mechanics (Done) Learning Progress Summary Patient Eager, E,TB,D,H, VU,DU by AR at 11/25/2024 1728 Significant Other Eager, E,TB,D,H, VU,DU by AR at 11/25/2024 1728 User Anthony Initials Effective Dates Name Provider Type Discipline CT 10/03/22 - Chrissie Nava OT Occupational Therapist OT OT Recommendation and Plan Recommended discharge disposition is based on the functional assessment performed by PT/OT/Speech therapy (as applicable) and may not reflect the medical necessity determined by your provider or services covered by an individual patient's insurance plan or patient resource. Planned Therapy Interventions (OT): adaptive equipment training, BADL retraining, functional balance retraining, IADL retraining, occupation/activity based interventions, patient/caregiver education/training, transfer/mobility retraining, edema control/reduction Therapy Frequency (OT): daily Plan of Care Review Plan of Care Reviewed With: patient, significant other Outcome Evaluation: OT educated pt and SO on ADL retraining for comfort, home safety and transfer training. Issued self-care kit and gait belt for home and educated on use. She lives alone, however SO will be staying with her to assist. Recommend DC home with initial 24/7 assist. Time Calculation: Evaluation Complexity (OT) Review Occupational Profile/Medical/Therapy History Complexity: brief/low complexity Assessment, Occupational Performance/Identification of Deficit Complexity: 1-3 performance deficits Clinical Decision Making Complexity (OT): problem focused assessment/low complexity Overall Complexity of Evaluation (OT): low complexity Time Calculation- OT Row Name 11/25/24 1728 Time Calculation- OT OT Start Time 1615 -AR OT Received On 11/25/24 -AR OT Goal Re-Cert Due Date 12/05/24 -AR Timed Charges 66387 - OT Self Care/Mgmt Minutes 11 -AR Untimed Charges OT Eval/Re-eval Minutes 50 -AR Total Minutes Timed Charges Total Minutes 11 -AR Untimed Charges Total Minutes 50 -AR Total Minutes 61 -AR User Anthony (r) = Recorded By, (t) = Taken By, (c) = Cosigned By Initials Name Provider Type AR Chrissie Nava OT Occupational Therapist Therapy Charges for Today Code Description Service Date Service Provider Modifiers Qty [id number] OT SELF CARE/MGMT/TRAIN EA 15 MIN 11/25/2024 Chrissie Nava OT GO 1 [id number] OT EVAL LOW COMPLEXITY 4 11/25/2024 Chrissie Nava OT GO 1 Chrissie Nava OT 11/25/2024 * Therapy Treatment Note - Negra Gutierrez, PT - 11/25/2024 3:52 PM EDT Images from the original note were not included. Patient Name: Shireen Rain : 1950 Today's Date: 11/25/2024 Admit Date: 11/25/2024 Visit Dx: ICD-10-CM ICD-9-CM 1. Status post total hip replacement, left Z96.642 V43.64 2. Primary osteoarthritis of left hip M16.12 715.15 Patient Active Problem List Diagnosis Primary osteoarthritis of left hip Degenerative arthritis of hip Status post total hip replacement, left GERD (gastroesophageal reflux disease) HTN (hypertension) Past Medical History: Diagnosis Date Acid reflux Anesthesia complication trouble breathing- mucus build up- during colonoscopy - only once- might need some antianxiety medsdos Anxiousness Cancer right breast cancer Gallbladder abscess History of shingles 2 years ago- face and back [place] (hard of hearing) no hearing aids Hypertension Migraines h/o Osteoarthritis Skin disorder hereditary - skin mole growths - no issues just all over body Urinary tract infection Wears glasses readers Wears partial dentures top bilat - removeable Past Surgical History: Procedure Laterality Date BREAST LUMPECTOMY Right CATARACT EXTRACTION, BILATERAL Bilateral CHOLECYSTECTOMY COLONOSCOPY LAPAROSCOPIC INGUINAL HERNIA REPAIR Right mesh in place WISDOM TOOTH EXTRACTION General Information [facility] Name 11/25/24 1414 Physical Therapy Time and Intention Document Type evaluation - Mode of Treatment physical therapy -[facility] Name 11/25/24 1414 General Information Patient Profile Reviewed yes - Prior Level of Function independent:;all household mobility;community mobility;gait;transfer;bed mobility;ADL's;dressing;bathing;driving;shopping No AD use at baseline. Endorses 1 acute fall - Existing Precautions/Restrictions fall;left;hip, anterior;other (see comments) LLE WBAT, nausea/vomiting w/ mobility - Barriers to Rehab none identified -[facility] Name 11/25/24 1414 Living Environment Current Living Arrangements home - People in Home alone;other (see comments) friend will be staying at d/c -[facility] Name 11/25/24 1414 Home Main Entrance Number of Stairs, Main Entrance one - Stair Railings, Main Entrance railing on right side (ascending) -[facility] Name 11/25/24 1414 Stairs Within Home, Primary Number of Stairs, Within Home, Primary none -[facility] Name 11/25/24 1414 Cognition Orientation Status (Cognition) oriented x 3 -[facility] Name 11/25/24 1414 Safety Issues/Impairments Affecting Functional Mobility Safety Issues Affecting Function (Mobility) awareness of need for assistance;insight into deficits/self-awareness;safety precaution awareness;safety precautions follow-through/compliance - Impairments Affecting Function (Mobility) balance;endurance/activity tolerance;pain;strength;other (see comments) nausea and vomiting - User Anthony (r) = Recorded By, (t) = Taken By, (c) = Cosigned By Initials Name Provider Type Negra Gutierrez PT Physical Therapist Mobility Row Name 11/25/24 1414 Bed Mobility Bed Mobility supine-sit;sit-supine - Supine-Sit Callaway (Bed Mobility) contact guard;verbal cues - Sit-Supine Callaway (Bed Mobility) minimum assist (75% patient effort);verbal cues - Assistive Device (Bed Mobility) bed rails;head of bed elevated - Comment, (Bed Mobility) VCs for hand placement and sequencing. Requires increased time and effort to complete. During 1st attempt at mobilization, pt became nauseous and began vomiting, causing return to supine. BP stable. PT returned later to initiate further mobility - Row Name 11/25/24 1414 Transfers Comment, (Transfers) VCs for hand placement and sequencing w/ FWW. Cues to step out LLE for comfort- Row Name 11/25/24 1552 11/25/24 1414 Sit-Stand Transfer Sit-Stand Callaway (Transfers) verbal cues;contact guard - contact guard;2 person assist;verbal cues - Assistive Device (Sit-Stand Transfers) walker, front-wheeled - walker, front- wheeled - Row Name 11/25/24 1552 11/25/24 1414 Gait/Stairs (Locomotion) Callaway Level (Gait) contact guard;1 person assist;verbal cues - contact guard;2 person assist;verbal cues - Assistive Device (Gait) walker, front-wheeled - walker, front-wheeled - Patient was able to Ambulate yes - yes PT returned for ambulation - Distance in Feet (Gait) 200 -LH 100 - Deviations/Abnormal Patterns (Gait) left sided deviations;gilles decreased;gait speed decreased;weight shifting decreased;stride length decreased - left sided deviations;gilles decreased;gait speed decreased;weight shifting decreased;stride length decreased - Bilateral Gait Deviations forward flexed posture - forward flexed posture - Callaway Level (Stairs) contact guard;2 person assist;verbal cues - unable to assess - Handrail Location (Stairs) right side (ascending);right side (descending) - -- Number of Steps (Stairs) 3 -LH -- Ascending Technique (Stairs) [id number] - -- Descending Technique (Stairs) [id number] - -- Comment, (Gait/Stairs) pt demo improved gait mechanics w/ continued decreased WB through LLE. No LOB or knee buckling. No nausea this ambulation trial. She completed stair training w/ education on correct sequencing. She was able to complete safely and w/o LOB - Pt demo step through gait pattern w/ decreased gilles and decreased weight acceptance through LLE. VCs for upright posture, AD management, increased step length, and increased WB through LLE. No LOB or knee buckling. Pt became nauseous and began vomiting, requiring chair to be brought up and return to room. Further mobility deferred -[facility] Name 11/25/24 1258 Gait/Stairs (Locomotion) Patient was able to Ambulate no, other medical factors prevent ambulation - Reason Patient was unable to Ambulate Nausea/Vomiting -[facility] Name 11/25/24 1552 11/25/24 141 Mobility Extremity Weight-bearing Status left lower extremity - left lower extremity - Left Lower Extremity (Weight-bearing Status) weight-bearing as tolerated (WBAT) - weight-bearing as tolerated (WBAT) - User Anthony (r) = Recorded By, (t) = Taken By, (c) = Cosigned By Initials Name Provider Type Negra Gutierrez, KATTY Physical Therapist Obj/Interventions [facility] Name 11/25/241413 Range of Motion Comprehensive General Range of Motion bilateral lower extremity ROM WFL -[facility] 11/25/241413 Strength Comprehensive (MMT) Comment, General Manual Muscle Testing (MMT) Assessment Pt able to perform B ankle DF/PF, heel slide, and quad set -[facility] 11/25/241413 Motor Skills Therapeutic Exercise hip;knee;ankle -[facility] 11/25/241413 Hip (Therapeutic Exercise) Hip (Therapeutic Exercise) isometric exercises;strengthening exercise - Hip Isometrics (Therapeutic Exercise) bilateral;gluteal sets;3 repetitions - Hip Strengthening (Therapeutic Exercise) left;heel slides;3 repetitions -[facility] 11/25/241413 Knee (Therapeutic Exercise) Knee (Therapeutic Exercise) isometric exercises - Knee Isometrics (Therapeutic Exercise) bilateral;quad sets;3 repetitions -[facility] 11/25/241413 Ankle (Therapeutic Exercise) Ankle (Therapeutic Exercise) AROM (active range of motion) - Ankle AROM (Therapeutic Exercise) bilateral;dorsiflexion;plantarflexion;5 repetitions -[facility] 11/25/241413 Balance Balance Assessment sitting static balance;sitting dynamic balance;standing static balance;standing dynamic balance - Static Sitting Balance standby assist - Dynamic Sitting Balance contact guard;verbal cues - Position, Sitting Balance unsupported;sitting edge of bed - Static Standing Balance contact guard - Dynamic Standing Balance contact guard;2-person assist;verbal cues - Position/Device Used, Standing Balance supported;walker, front-wheeled - Balance Interventions sit to stand;sitting;standing;supported;static;dynamic - Comment, Balance No LOB or knee buckling -[facility] Name 11/25/241413 Sensory Assessment (Somatosensory) Sensory Assessment (Somatosensory) LE sensation intact - User Anthony (r) = Recorded By, (t) = Taken By, (c) = Cosigned By Initials Name Provider Type Negra Gutierrez, PT Physical Therapist Goals/Plan [facility] 11/25/241413 Bed Mobility Goal 1 (PT) Activity/Assistive Device (Bed Mobility Goal 1, PT) bed mobility activities, all - [place] Level/Cues Needed (Bed Mobility Goal 1, PT) supervision required - Time Frame (Bed Mobility Goal 1, PT) short term goal (STG);2 days - Progress/Outcomes (Bed Mobility Goal 1, PT) new goal -[facility] Name 11/25/241413 Transfer Goal 1 (PT) Activity/Assistive Device (Transfer Goal 1, PT) [id number] - Callaway Level/Cues Needed (Transfer Goal 1, PT) modified independence - Time Frame (Transfer Goal 1, PT) assisted goal (LTG);3 days - Progress/Outcome (Transfer Goal 1, PT) new goal -[facility] Name 11/25/241413 Gait Training Goal 1 (PT) Activity/Assistive Device (Gait Training Goal 1, PT) gait (walking locomotion);assistive device use- Callaway Level (Gait Training Goal 1, PT) modified independence - Distance (Gait Training Goal 1, PT) 300 ft - Time Frame (Gait Training Goal 1, PT) assisted goal (LTG);3 days - Progress/Outcome (Gait Training Goal 1, PT) new goal -[facility] Name 11/25/241413 Stairs Goal 1 (PT) Activity/Assistive Device (Stairs Goal 1, PT) ascending stairs;descending stairs;using handrail, right - Callaway Level/Cues Needed (Stairs Goal 1, PT) standby assist - Number of Stairs (Stairs Goal 1, PT) 1 - Time Frame (Stairs Goal 1, PT) terminal block assembler goal (LTG);3 days - Progress/Outcome (Stairs Goal 1, PT) new goal - Row Name 11/25/24 1414 Therapy Assessment/Plan (PT) Planned Therapy Interventions (PT) balance training;bed mobility training;gait training;home exercise program;neuromuscular re-education;patient/family education;postural re-education;ROM (range of motion);motor coordination training;strengthening;stretching;stair training;transfer training - User Anthony (r) = Recorded By, (t) = Taken By, (c) = Cosigned By Initials Name Provider Type Negra Gutierrez, PT Physical Therapist Clinical Impression [facility] Name 11/25/24 1452 Pain Pretreatment Pain Rating 2/10 - Posttreatment Pain Rating 4/10 - Pain Location hip - Pain Side/Orientation left - Pain Management Interventions activity modification encouraged;exercise or physical activity utilized;positioning techniques utilized;premedicated for activity;cold applied;nursing notified - Response to Pain Interventions activity participation with tolerable pain - Row Name 11/25/24 1820 11/25/24 1452 Plan of Care Review Plan of Care Reviewed With patient;friend - patient;friend - Progress improving - -- Outcome Evaluation Pt ambulated 200 ft w/ FWW and navigated 3 steps w/ handrail use, CGA. No LOB orknee buckling. No nausea reported this session. Pt is functionally cleared by PT. Recommend d/c home w/ assist and HHPT once medically appropriate. - PT eval completed. Pt presents s/p L JEAN w/ LLEdeficits, nausea and vomiting, balance deficits, and decreased activity tolerance. Pt ambulated 100ft w/ FWW, CGA x2. No LOB or knee buckling noted. Unable to assess stairs d/t nausea and vomiting during ambulation. RN notified. Pt would benefit from IP PT services while hospitalized. Recommend d/c home w/ assist and HHPT once medically appropriate. - Row Name 11/25/24 1452 Therapy Assessment/Plan (PT) Patient/Family Therapy Goals Statement (PT) to go home - Rehab Potential (PT) good - Criteria for Skilled Interventions Met (PT) yes;meets criteria;skilled treatment is necessary - Therapy Frequency (PT) 2 times/day - Predicted Duration of Therapy Intervention (PT) 3 days - Row Name 11/25/24 1452 Vital Signs Pre Systolic BP Rehab 171 -LH Pre Treatment Diastolic BP 74 -LH Post Systolic BP Rehab 176 -LH Post Treatment Diastolic BP 80 -LH Pre SpO2 (%) 97 -LH O2 Delivery Pre Treatment room air -LH Post SpO2 (%) 97 -LH O2 Delivery Post Treatment room air -LH Pre Patient Position Supine -LH Post Patient Position Sitting - Row Name 11/25/24 18211/25/24 1452 Positioning and Restraints Pre-Treatment Position sitting in chair/recliner -LH in bed -LH Post Treatment Position chair - chair -LH In Chair notified nsg;reclined;sitting;call light within reach;encouraged to call for assist;exit alarm on;with family/caregiver;waffle cushion;legs elevated - notified nsg;reclined;sitting;call light within reach;encouraged to call for assist;exit alarm on;waffle cushion;with family/caregiver;legs elevated - User Anthony (r) = Recorded By, (t) = Taken By, (c) = Cosigned By Initials Name Provider Type Negra Gutierrez, PT Physical Therapist Outcome Measures Row Name 11/25/24 18211/25/24 1414 How much help from another person do you currently need... Turning from your back to your side while in flat bed without using bedrails? 3 - 3 -LH Moving from lying on back to sitting on the side of a flat bed without bedrails? 3 - 3 -LH Moving to and from a bed to a chair (including a wheelchair)? 3 - 3 -LH Standing up from a chair using your arms (e.g., wheelchair, bedside chair)? 3 - 3 -LH Climbing 3-5 steps with a railing? 3 - 2 -LH To walk in hospital room? 3 - 3 -LH AM-PAC 6 Clicks Score (PT) 18 -LH 17 -LH Highest Level of Mobility Goal Walk 10 Steps or More-6 -LH Stand (1 or More Minutes)-5 - Row Name 11/25/24 1050 How much help from another person do you currently need... Turning from your back to your side while in flat bed without using bedrails? 2 -TB Moving from lying on back to sitting on the side of a flat bed without bedrails? 2 -TB Moving to and from a bed to a chair (including a wheelchair)? 2 -TB Standing up from a chair using your arms (e.g., wheelchair, bedside chair)? 2 -TB Climbing 3-5 steps with a railing? 1 -TB To walk in hospital room? 2 -TB AM-PAC 6 Clicks Score (PT) 11 -TB Highest Level of Mobility Goal Move to Chair/Commode-4 -TB Row Name 11/25/24 1414 PADD Diagnosis 2 - Gender 1 - Age Group 1 - Gait Distance 0 - Assist Level 1 - Home Support 3 - PADD Score 8 - Patient Preference home with home health - Prediction by PADD Score directly home (with home health or out-patient rehab) - Row Name 11/25/24 1821 11/25/24 1727 Functional Assessment Outcome Measure Options AM-PAC 6 Clicks Basic Mobility (PT) - AM-PAC 6 Clicks Daily Activity (OT)-CT Row Name 11/25/24 1414 Functional Assessment Outcome Measure Options AM-PAC 6 Clicks Basic Mobility (PT);PADD - User Anthony (r) = Recorded By, (t) = Taken By, (c) = Cosigned By Initials Name Provider Type Chrissie Zapata, OT Occupational Therapist [facility] Pablo Conway RN Registered Nurse Negra Gutierrez, PT Physical Therapist Physical Therapy Education Title: PT OT RN CLINICAL COORDINATOR Therapies (Done) Topic: Physical Therapy (Done) Point: Mobility training (Done) Learning Progress Summary Patient Acceptance, E, VU,NR by at 11/25/20241456 Other Acceptance, E, VU,NR by at 11/25/20241456 Point: Home exercise program (Done) Learning Progress Summary Patient Acceptance, E, VU,NR by at 11/25/20241456 Other Acceptance, E, VU,NR by at 11/25/20241456 Point: Body mechanics (Done) Learning Progress Summary Patient Acceptance, E, VU,NR by at 11/25/20241456 Other Acceptance, E, VU,NR by at 11/25/20241456 Point: Precautions (Done) Learning Progress Summary Patient Acceptance, E, VU,NR by at 11/25/20241456 Other Acceptance, E, VU,NR by at 11/25/20241456 User Anthony Initials Effective Dates Name Provider Type Discipline 12/14/22 - Negra Gutierrez, PT Physical Therapist PT PT Recommendation and Plan Recommended discharge disposition is based on the functional assessment performed by PT/OT/Speech therapy (as applicable) and may not reflect the medical necessity determined by your provider or services covered by an individual patient's insurance plan or patient resource. Planned Therapy Interventions (PT): balance training, bed mobility training, gait training, home exercise program, neuromuscular re-education, patient/family education, postural re-education, ROM (range of motion), motor coordination training, strengthening, stretching, stair training, transfer training Therapy Frequency (PT): 2 times/day Progress: improving Outcome Evaluation: Pt ambulated 200 ft w/ FWW and navigated 3 steps w/ handrail use, CGA. No LOB or knee buckling. No nausea reported this session. Pt is functionally cleared by PT. Recommend d/c home w/ assist and HHPT once medically appropriate. Time Calculation: PT Evaluation Complexity History, PT Evaluation Complexity: 3 or more personal factors and/or comorbidities Examination of Body Systems (PT Eval Complexity): total of 4 or more elements Clinical Presentation (PT Evaluation Complexity): stable Clinical Decision Making (PT Evaluation Complexity): low complexity Overall Complexity (PT Evaluation Complexity): low complexity PT Charges Row Name 11/25/24 1821 11/25/24 1458 Time Calculation Start Time 1552 - 1414 began eval [id number] - PT Received On -- 11/25/24 - PT Goal Re-Cert Due Date -- 12/05/24 - Timed Charges 17910 - Gait Training Minutes 16 - -- 84460 - PT Therapeutic Activity Minutes -- 10 - Untimed Charges PT Eval/Re-eval Minutes -- 46 - Total Minutes Timed Charges Total Minutes 16 - 10 - Untimed Charges Total Minutes -- 46 - Total Minutes 16 - 56 - User Anthony (r) = Recorded By, (t) = Taken By, (c) = Cosigned By Initials Name Provider Type Negra Gutierrez, PT Physical Therapist Therapy Charges for Today Code Description Service Date Service Provider Modifiers Qty 48618798729 HC PT THERAPEUTIC ACT EA 15 MIN 11/25/2024 Negra Gutierrez, PT GP 1 16608746122 HC PT EVAL LOW COMPLEXITY 4 11/25/2024 Negra Gutierrez, PT GP 1 90540448102 HC PT THER SUPP EA 15 MIN 11/25/2024 Negra Gutierrez, PT GP 3 95406737420 HC GAIT TRAINING EA 15 MIN 11/25/2024 Negra Gutierrez, PT GP 1 PT G-Codes Outcome Measure Options: AM-PAC 6 Clicks Basic Mobility (PT) AM-PAC 6 Clicks Score (PT): 18 AM-PAC 6 Clicks Score (OT): 18 PT Discharge Summary Anticipated Discharge Disposition (PT): home with assist, home with home health Negra Gutierrez PT 11/25/2024 * Case Management/Social Work - Ivonne Carbajal RN - 11/25/2024 2:32 PM EDT Continued Stay Note [facility] Patient Name: Shireen Rain Today's Date: 11/25/2024 Admit Date: 11/25/2024 Plan: home with [facility] Discharge Plan Row Name 11/25/24 1430 Plan Plan home with [facility] Patient/Family in Agreement with Plan yes Plan Comments Pt lives in [facility]. She reports she was independent with ADLs and mobility prior to admit. She owns a rolling walker. Pt is followed by her PCP and has drug coverage. At this time her plan for discharge is to return home with [facility] . This was arranged prior to admit. CM will follow for any additional dc needs Final Discharge Disposition Code 06 - home with home health care Discharge Codes No documentation. vIonne Carbajal RN * Therapy Evaluation - Negra Gutierrez, PT - 11/25/2024 2:14 PM EDT Images from the original note were not included. Patient Name: Shireen Rain : 1950 Today's Date: 11/25/2024 Admit Date: 11/25/2024 Visit Dx: ICD-10-CM ICD-9-CM 1. Status post total hip replacement, left Z96.642 V43.64 2. Primary osteoarthritis of left hip M16.12 715.15 Patient Active Problem List Diagnosis Primary osteoarthritis of left hip Degenerative arthritis of hip Status post total hip replacement, left GERD (gastroesophageal reflux disease) HTN (hypertension) Past Medical History: Diagnosis Date Acid reflux Anesthesia complication trouble breathing- mucus build up- during colonoscopy - only once- might need some antianxiety medsdos Anxiousness Cancer right breast cancer Gallbladder abscess History of shingles 2 years ago- face and back [place] (hard of hearing) no hearing aids Hypertension Migraines h/o Osteoarthritis Skin disorder hereditary - skin mole growths - no issues just all over body Urinary tract infection Wears glasses readers Wears partial dentures top bilat - removeable Past Surgical History: Procedure Laterality Date BREAST LUMPECTOMY Right CATARACT EXTRACTION, BILATERAL Bilateral CHOLECYSTECTOMY COLONOSCOPY LAPAROSCOPIC INGUINAL HERNIA REPAIR Right mesh in place WISDOM TOOTH EXTRACTION General Information [facility] Name 11/25/24 1414 Physical Therapy Time and Intention Document Type evaluation - Mode of Treatment physical therapy - Row Name 11/25/24 1414 General Information Patient Profile Reviewed yes - Prior Level of Function independent:;all household mobility;community mobility;gait;transfer;bed mobility;ADL's;dressing;bathing;driving;shopping No AD use at baseline. Endorses 1 acute fall - Existing Precautions/Restrictions fall;left;hip, anterior;other (see comments) LLE WBAT, nausea/vomiting w/ mobility - Barriers to Rehab none identified - Row Name 11/25/24 1414 Living Environment Current Living Arrangements home - People in Home alone;other (see comments) friend will be staying at d/c - Row Name 11/25/24 1414 Home Main Entrance Number of Stairs, Main Entrance one - Stair Railings, Main Entrance railing on right side (ascending) - Row Name 11/25/24 1414 Stairs Within Home, Primary Number of Stairs, Within Home, Primary none -LH Row Name 11/25/241413 Cognition Orientation Status (Cognition) oriented x 3 -[facility] Name 11/25/24 141 Safety Issues/Impairments Affecting Functional Mobility Safety Issues Affecting Function (Mobility) awareness of need for assistance;insight into deficits/self-awareness;safety precaution awareness;safety precautions follow-through/compliance - Impairments Affecting Function (Mobility) balance;endurance/activity tolerance;pain;strength;other (see comments) nausea and vomiting - User Anthony (r) = Recorded By, (t) = Taken By, (c) = Cosigned By Initials Name Provider Type Negra Gutierrez, PT Physical Therapist Mobility [facility] Name 11/25/24 141 Bed Mobility Bed Mobility supine-sit;sit-supine - Supine-Sit Callaway (Bed Mobility) contact guard;verbal cues - Sit-Supine Callaway (Bed Mobility) minimum assist (75% patient effort);verbal cues - Assistive Device (Bed Mobility) bed rails;head of bed elevated - Comment, (Bed Mobility) VCs for hand placement and sequencing. Requires increased time and effort to complete. During 1st attempt at mobilization, pt became nauseous and began vomiting, causing return to supine. BP stable. PT returned later to initiate further mobility -[facility] Name 11/25/241413 Transfers Comment, (Transfers) VCs for hand placement and sequencing w/ FWW. Cues to step out LLE for comfort-[facility] Name 11/25/24 141 Sit-Stand Transfer Sit-Stand Callaway (Transfers) contact guard;2 person assist;verbal cues - Assistive Device (Sit-Stand Transfers) walker, front-wheeled -[facility] Name 11/25/24 14111/25/24 1258 Gait/Stairs (Locomotion) Callaway Level (Gait) contact guard;2 person assist;verbal cues - -- Assistive Device (Gait) walker, front-wheeled - -- Patient was able to Ambulate yes PT returned for ambulation - no, other medical factors prevent ambulation - Reason Patient was unable to Ambulate -- Nausea/Vomiting - Distance in Feet (Gait) 100 - -- Deviations/Abnormal Patterns (Gait) left sided deviations;gilles decreased;gait speed decreased;weight shifting decreased;stride length decreased - -- Bilateral Gait Deviations forward flexed posture - -- Callaway Level (Stairs) unable to assess - -- Comment, (Gait/Stairs) Pt demo step through gait pattern w/ decreased gilles and decreased weight acceptance through LLE. VCs for upright posture, AD management, increased step length, and increasedWB through LLE. No LOB or knee buckling. Pt became nauseous and began vomiting, requiring chair to be brought up and return to room. Further mobility deferred - -- [facility] 11/25/24 141 Mobility Extremity Weight-bearing Status left lower extremity - Left Lower Extremity (Weight-bearing Status) weight-bearing as tolerated (WBAT) - User Anthony (r) = Recorded By, (t) = Taken By, (c) = Cosigned By Initials Name Provider Type Negra Gutierrez PT Physical Therapist Obj/Interventions [facility] 11/25/24 141 Range of Motion Comprehensive General Range of Motion bilateral lower extremity ROM WFL -[facility] 11/25/241413 Strength Comprehensive (MMT) Comment, General Manual Muscle Testing (MMT) Assessment Pt able to perform B ankle DF/PF, heel slide, and quad set -[facility] 11/25/24 141 Motor Skills Therapeutic Exercise hip;knee;ankle -[facility] 11/25/24 141 Hip (Therapeutic Exercise) Hip (Therapeutic Exercise) isometric exercises;strengthening exercise - Hip Isometrics (Therapeutic Exercise) bilateral;gluteal sets;3 repetitions - Hip Strengthening (Therapeutic Exercise) left;heel slides;3 repetitions -[facility] 11/25/24 141 Knee (Therapeutic Exercise) Knee (Therapeutic Exercise) isometric exercises - Knee Isometrics (Therapeutic Exercise) bilateral;quad sets;3 repetitions -[facility] 11/25/24 141 Ankle (Therapeutic Exercise) Ankle (Therapeutic Exercise) AROM (active range of motion) - Ankle AROM (Therapeutic Exercise) bilateral;dorsiflexion;plantarflexion;5 repetitions -[facility] 11/25/24 141 Balance Balance Assessment sitting static balance;sitting dynamic balance;standing static balance;standing dynamic balance - Static Sitting Balance standby assist - Dynamic Sitting Balance contact guard;verbal cues - Position, Sitting Balance unsupported;sitting edge of bed - Static Standing Balance contact guard - Dynamic Standing Balance contact guard;2-person assist;verbal cues - Position/Device Used, Standing Balance supported;walker, front-wheeled - Balance Interventions sit to stand;sitting;standing;supported;static;dynamic - Comment, Balance No LOB or knee buckling - Row Name 11/25/241413 Sensory Assessment (Somatosensory) Sensory Assessment (Somatosensory) LE sensation intact - User Anthony (r) = Recorded By, (t) = Taken By, (c) = Cosigned By Initials Name Provider Type Negra Gutierrez, PT Physical Therapist Goals/Plan Row Name 11/25/241413 Bed Mobility Goal 1 (PT) Activity/Assistive Device (Bed Mobility Goal 1, PT) bed mobility activities, all - [place] Level/Cues Needed (Bed Mobility Goal 1, PT) supervision required - Time Frame (Bed Mobility Goal 1, PT) short term goal (STG);2 days - Progress/Outcomes (Bed Mobility Goal 1, PT) new goal -[facility] Name 11/25/241413 Transfer Goal 1 (PT) Activity/Assistive Device (Transfer Goal 1, PT) [id number] - [place] Level/Cues Needed (Transfer Goal 1, PT) modified independence - Time Frame (Transfer Goal 1, PT) terminal block assembler goal (LTG);3 days - Progress/Outcome (Transfer Goal 1, PT) new goal - Row Name 11/25/241413 Gait Training Goal 1 (PT) Activity/Assistive Device (Gait Training Goal 1, PT) gait (walking locomotion);assistive device use- Call[place] Level (Gait Training Goal 1, PT) modified independence - Distance (Gait Training Goal 1, PT) 300 ft - Time Frame (Gait Training Goal 1, PT) terminal block assembler goal (LTG);3 days - Progress/Outcome (Gait Training Goal 1, PT) new goal - Row Name 11/25/241413 Stairs Goal 1 (PT) Activity/Assistive Device (Stairs Goal 1, PT) ascending stairs;descending stairs;using handrail, right - Call[place] Level/Cues Needed (Stairs Goal 1, PT) standby assist - Number of Stairs (Stairs Goal 1, PT) 1 - Time Frame (Stairs Goal 1, PT) terminal block assembler goal (LTG);3 days - Progress/Outcome (Stairs Goal 1, PT) new goal -LH Row Name 11/25/24 1414 Therapy Assessment/Plan (PT) Planned Therapy Interventions (PT) balance training;bed mobility training;gait training;home exercise program;neuromuscular re-education;patient/family education;postural re-education;ROM (range of motion);motor coordination training;strengthening;stretching;stair training;transfer training [facility] User Anthony (r) = Recorded By, (t) = Taken By, (c) = Cosigned By Initials Name Provider Type Negra Gutierrez, PT Physical Therapist Clinical Impression [facility] Name 11/25/24 1452 Pain Pretreatment Pain Rating 2/10 [facility] Posttreatment Pain Rating 4/10 - Pain Location hip - Pain Side/Orientation left - Pain Management Interventions activity modification encouraged;exercise or physical activity utilized;positioning techniques utilized;premedicated for activity;cold applied;nursing notified - Response to Pain Interventions activity participation with tolerable pain -[facility] Name 11/25/24 145 Plan of Care Review Plan of Care Reviewed With patient;friend - Outcome Evaluation PT eval completed. Pt presents s/p L JEAN w/ LLE deficits, nausea and vomiting, balance deficits, and decreased activity tolerance. Pt ambulated 100 ft w/ FWW, CGA x2. No LOB or knee buckling noted. Unable to assess stairs d/t nausea and vomiting during ambulation. RN notified. Ptwould benefit from IP PT services while hospitalized. Recommend d/c home w/ assist and HHPT once medically appropriate. -[facility] Name 11/25/24 145 Therapy Assessment/Plan (PT) Patient/Family Therapy Goals Statement (PT) to go home - Rehab Potential (PT) good - Criteria for Skilled Interventions Met (PT) yes;meets criteria;skilled treatment is necessary [facility] Therapy Frequency (PT) 2 times/day [facility] Predicted Duration of Therapy Intervention (PT) 3 days -[facility] Name 11/25/24 1452 Vital Signs Pre Systolic BP Rehab 171 -LH Pre Treatment Diastolic BP 74 -LH Post Systolic BP Rehab 176 -LH Post Treatment Diastolic BP 80 -LH Pre SpO2 (%) 97 -LH O2 Delivery Pre Treatment room air - Post SpO2 (%) 97 -LH O2 Delivery Post Treatment room air - Pre Patient Position Supine -LH Post Patient Position Sitting -[facility] Name 11/25/24 1452 Positioning and Restraints Pre-Treatment Position in bed - Post Treatment Position chair - In Chair notified nsg;reclined;sitting;call light within reach;encouraged to call for assist;exit alarm on;waffle cushion;with family/caregiver;legs elevated - User Anthony (r) = Recorded By, (t) = Taken By, (c) = Cosigned By Initials Name Provider Type Negra Gutierrez, PT Physical Therapist Outcome Measures Row Name 11/25/24 1414 11/25/24 1050 How much help from another person do you currently need... Turning from your back to your side while in flat bed without using bedrails? 3 - 2 -TB Moving from lying on back to sitting on the side of a flat bed without bedrails? 3 - 2 -TB Moving to and from a bed to a chair (including a wheelchair)? 3 - 2 -TB Standing up from a chair using your arms (e.g., wheelchair, bedside chair)? 3 - 2 -TB Climbing 3-5 steps with a railing? 2 - 1 -TB To walk in hospital room? 3 - 2 -TB AM-PAC 6 Clicks Score (PT) 17 - 11 - Highest Level of Mobility Goal Stand (1 or More Minutes)-5 - Move to Chair/Commode-4 - Row Name 11/25/24 1414 PADD Diagnosis 2 - Gender 1 - Age Group 1 - Gait Distance 0 - Assist Level 1 - Home Support 3 - PADD Score 8 - Patient Preference home with home health - Prediction by PADD Score directly home (with home health or out-patient rehab) - Row Name 11/25/24 1414 Functional Assessment Outcome Measure Options AM-PAC 6 Clicks Basic Mobility (PT);PADD - User Anthony (r) = Recorded By, (t) = Taken By, (c) = Cosigned By Initials Name Provider Type Pablo Conway RN Registered Nurse Negra Gutierrez, PT Physical Therapist Physical Therapy Education Title: PT OT RN CLINICAL COORDINATOR Therapies (Done) Topic: Physical Therapy (Done) Point: Mobility training (Done) Learning Progress Summary Patient Acceptance, E, VU,NR by at 11/25/2024 9354 Other Acceptance, E, VU,NR by at 11/25/20241456 Point: Home exercise program (Done) Learning Progress Summary Patient Acceptance, E, VU,NR by at 11/25/20241456 Other Acceptance, E, VU,NR by at 11/25/20241456 Point: Body mechanics (Done) Learning Progress Summary Patient Acceptance, E, VU,NR by at 11/25/20241456 Other Acceptance, E, VU,NR by at 11/25/20241456 Point: Precautions (Done) Learning Progress Summary Patient Acceptance, E, VU,NR by at 11/25/20241456 Other Acceptance, E, VU,NR by at 11/25/20241456 User Anthony Initials Effective Dates Name Provider Type Discipline 12/14/22 - Negra Gutierrez, PT Physical Therapist PT PT Recommendation and Plan Recommended discharge disposition is based on the functional assessment performed by PT/OT/Speech therapy (as applicable) and may not reflect the medical necessity determined by your provider or services covered by an individual patient's insurance plan or patient resource. Planned Therapy Interventions (PT): balance training, bed mobility training, gait training, home exercise program, neuromuscular re-education, patient/family education, postural re-education, ROM (range of motion), motor coordination training, strengthening, stretching, stair training, transfer training Therapy Frequency (PT): 2 times/day Outcome Evaluation: PT eval completed. Pt presents s/p L JEAN w/ LLE deficits, nausea and vomiting, balance deficits, and decreased activity tolerance. Pt ambulated 100 ft w/ FWW, CGA x2. No LOB or knee buckling noted. Unable to assess stairs d/t nausea and vomiting during ambulation. RN notified. Pt would benefit from IP PT services while hospitalized. Recommend d/c home w/ assist and HHPT once medically appropriate. Time Calculation: PT Evaluation Complexity History, PT Evaluation Complexity: 3 or more personal factors and/or comorbidities Examination of Body Systems (PT Eval Complexity): total of 4 or more elements Clinical Presentation (PT Evaluation Complexity): stable Clinical Decision Making (PT Evaluation Complexity): low complexity Overall Complexity (PT Evaluation Complexity): low complexity PT Charges Row Name 11/25/24 1451 Time Calculation Start Time 1414 began eval [id number] - PT Received On 11/25/24 - PT Goal Re-Cert Due Date 12/05/24 - Timed Charges 40826 - PT Therapeutic Activity Minutes 10 -LH Untimed Charges PT Eval/Re-eval Minutes 46 -LH Total Minutes Timed Charges Total Minutes 10 -LH Untimed Charges Total Minutes 46 -LH Total Minutes 56 -LH User Anthony (r) = Recorded By, (t) = Taken By, (c) = Cosigned By Initials Name Provider Type Negra Gutierrez, PT Physical Therapist Therapy Charges for Today Code Description Service Date Service Provider Modifiers Qty 18122387372 HC PT THERAPEUTIC ACT EA 15 MIN 11/25/2024 Negra Gutierrez, PT GP 1 35808479502 HC PT EVAL LOW COMPLEXITY 4 11/25/2024 Negra Gutierrez, PT GP 1 [id number] HC PT THER SUPP EA 15 MIN 11/25/2024 Negra Gutierrez, PT GP 3 PT G-Codes Outcome Measure Options: AM-PAC 6 Clicks Basic Mobility (PT), PADD AM-PAC 6 Clicks Score (PT): 17 PT Discharge Summary Anticipated Discharge Disposition (PT): home with assist, home with home health Negra Gutierrez PT 11/25/2024 documented in this encounter Plan of Treatment Upcoming Encounters Date Type Department Care Team (Late st Contact Info) Description 12/12/2024 11:10 AM EDT Office Visit [facility] [address] [facility] [address] [place] [address] Nelly Rosa PA-C [address] [place] [address] [address] [phone] documented as of this encounter Procedures Procedure Name Priority Date/Time Associated Diagnosis Comments XR HIP W OR WO PELVIS 2-3 VIEW LEFT STAT 11/25/2024 10:11 AM EDT FL C ARM DURING SURGERY Routine 11/25/2024 9:01 AM EDT AZ ARTHRP ACETBLR/PROX FEM PROSTC AGRFT/ALGRFT 11/25/2024 7:13 AM EDT Primary osteoarthritis of left hip Special Needs * POTASSIUM STAT 11/25/2024 7:01 AM EDT documented in this encounter Results * XR Hip With or Without Pelvis 2 - 3 View Left (11/25/2024 10:11 AM EDT) Anatomical Region Laterality Modality Lower Extremities, Hip Left Radiograp hic Imaging 11/25/2024 10:3 0 AM EDT Impressions 11/25/2024 10:31 AM EDT Impression: Status post total hip arthroplasty in near anatomic alignment, with no evidence of immediate complication. Electronically Signed: Royce Hare MD 11/25/2024 10:31 AM EDT Workstation ID: [id number] Narrative 11/25/2024 10:31 AM EDT XR HIP W OR WO PELVIS 2-3 VIEW LEFT Date of Exam: 11/25/2024 9:53 AM EDT Indication: post-op left JEAN. Comparison: None available. Findings: There has been placement of a total hip arthroplasty in near-anatomic alignment. No periprosthetic fracture is identified. Post-operative soft tissue gas is noted. Procedure Note Royce Hare MD - 11/25/2024 XR HIP W OR WO PELVIS 2-3 VIEW LEFT Date of Exam: 11/25/2024 9:53 AM EDT Indication: post-op left JEAN. Comparison: None available. Findings: There has been placement of a total hip arthroplasty in near-anatomicalignment. No periprosthetic fracture is identified. Post-operative softtissue gas is noted. IMPRESSION: Impression: Status post total hip arthroplasty in near anatomic alignment, with noevidence of immediate complication. Electronically Signed: Royce Hare MD 11/25/2024 10:31 AM EDT Workstation ID: [id number] us Raymundo Gil MD IMG DIAGNOSTIC IMAGING ORDERAB LES Final Result * FL C Arm During Surgery (11/25/2024 9:01 AM EDT) Narrative SYSTEMGENERATED, DOCUMENTATION - 11/25/2024 9:09 AM EDT This procedure was auto-finalized with no dictation required. Raymundo Gil MD IMG FLUOROSCOPY ORDERABLES Fin al Result * Potassium (11/25/2024 7:01 AM EDT) Potassium 4.0 3.5 - 5.2 mmol/L 11/25/2024 7:30 AM EDT [facility] Blood Line / Unknown 11/25/2024 7: 01 AM EDT 11/25/2024 7:01 AM EDT Sarina Vernon DO LAB BLOOD ORDERABLES Final Res ult [facility]
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 replacement, left GERD (gastroesophageal reflux disease) Esophageal reflux HTN (hypertension) Unspecified essential hypertension documented in this encounter Admitting Diagnoses Diagnosis Primary osteoarthritis of left hip Degenerative arthritis of hip Primary localized osteoarthrosis, pelvic region and thigh Status post total hip replacement, left documented in this encounter Administered Medications Inactive Administered Medications - up to 3 most recent administrations Medication Order MAR Action Action Date Dose Rate Site acetaminophen (TYLENOL) tablet 1,000 mg 1,000 mg, Oral, Once, On Sun11/25/24 at 0720, For 1 dose, If given for fever, use fever parameter: fever greater than 100.4 F Based on patient request - if ordered for moderate or severe pain, provider allows for administration of a medication prescribed for a lower pain scale. Do not exceed 4 grams of acetaminophen in a 24 hr period. Max dose of 2gm for AST/ALT greater than 120 units/L. If given for pain, use the following pain scale: Mild Pain = Pain Score of 1-3, CPOT 1-2 Moderate Pain = Pain Score of 4-6, CPOT 3-4 Severe Pain = Pain Score of 7-10, CPOT 5-8 Given 11/25/2024 7:22 AM EDT 1,000 mg acetaminophen (TYLENOL) tablet 1,000 mg 1,000 mg, Oral, Every 8 Hours, First dose on Sun11/25/24 at 1500, For 48 hours, If given for fever, use fever parameter: fever greater than 100.4 F Based on patient request - if ordered for moderate or severe pain, provider allows for administration of a medication prescribed for a lower pain scale. Do not exceed 4 grams of acetaminophen in a 24 hr period. Max dose of 2gm for AST/ALT greater than 120 units/L. If given for pain, use the following pain scale: Mild Pain = Pain Score of 1-3, CPOT 1-2 Moderate Pain = Pain Score of 4-6, CPOT 3-4 Severe Pain = Pain Score of 7-10, CPOT 5-8 Given 11/25/2024 2:46 PM EDT 1,000 mg ceFAZolin 1000 mg IVPB in 100 mL NS (MBP) 1,000 mg, Intravenous, Administer over 30 Minutes, Once, On Sun11/25/24 at 0939, For 1 dose, Administer this med on arrival to the PACU. Caution: Look alike/sound alike drug alert, Indications: Surgical ProphylaxisIndications:Surgical Prophylaxis New Bag 11/25/2024 9:51 AM EDT 1,000 mg ceFAZolin 2000 mg IVPB in 100 mL NS (MBP) 2,000 mg, Intravenous, Administer over 30 Minutes, Every 8 Hours, First dose on Sun11/25/24 at 1800, For 2 doses, Caution: Look alike/sound alike drug alert, Indications: Surgical ProphylaxisIndications:Surgical Prophylaxis ethyl alcohol 62 % 2 each 2 each (2 Swab), Nasal, Once, On Sun11/25/24 at 0555, For 1 dose, Administer 15-60 minutes prior to surgery following these steps: Clean nostrils with a tissue, apply a 62% ethyl alcohol swab to the right nostril gently rotating the swab for 30 seconds, repeat the process with the 2nd swab in the left nostril.Indications:Primary osteoarthritis of left hip Given 11/25/2024 7:03 AM EDT 2 each famotidine (PEPCID) tablet 20 mg 20 mg, Oral, Once, On Sun11/25/24 at 0555, For 1 dose Given 11/25/2024 7:03 AM EDT 20 mg fentaNYL citrate (PF) (SUBLIMAZE) 50 mcg/mL injection - ADS Override Pull Starting on Sun11/25/24 at 0948, For 1 dose, Created by cabinet override If given for pain, use the following pain scale: Mild Pain = Pain Score of 1-3, CPOT 1-2 Moderate Pain = Pain Score of 4-6, CPOT 3-4 Severe Pain = Pain Score of 7-10, CPOT 5-8 fentaNYL citrate (PF) (SUBLIMAZE) injection 50 mcg 50 mcg, Intravenous, Every 5 Minutes PRN, Moderate Pain, Starting on Sun11/25/24 at 0937, For 5 doses, If given for pain, use the following pain scale: Mild Pain = Pain Score of 1-3, CPOT 1-2 Moderate Pain = Pain Score of 4-6, CPOT 3-4 Severe Pain = Pain Score of 7-10, CPOT 5-8 Given 11/25/2024 10:25 AM EDT 50 mcg Given 11/25/2024 10:20 AM EDT 50 mcg Given 11/25/2024 9:57 AM EDT 50 mcg HYDROmorphone (DILAUDID) 1 MG/ML injection - ADS Override Pull Starting on Sun11/25/24 at 0955, For 1 dose, Created by cabinet override (DEJAH) Caution: Look alike/sound alike drug alert If given for pain, use the following pain scale: Mild Pain = Pain Score of 1-3, CPOT 1-2 Moderate Pain = Pain Score of 4-6, CPOT 3-4 Severe Pain = Pain Score of 7-10, CPOT 5-8 HYDROmorphone (DILAUDID) injection 0.5 mg 0.5 mg, Intravenous, Every 5 Minutes PRN, Severe Pain, Starting on Sun11/25/24 at 0937, For 4 doses, Maximum total dose of hydromorphone is 2 mg. If given for pain, use the following pain scale: Mild Pain = Pain Score of 1-3, CPOT 1-2 Moderate Pain = Pain Score of 4-6, CPOT 3-4 Severe Pain = Pain Score of 7-10, CPOT 5-8 Given 11/25/2024 10:24 AM EDT 0.5 mg Given 11/25/2024 10:08 AM EDT 0.5 mg Given 11/25/2024 9:56 AM EDT 0.5 mg HYDROmorphone (DILAUDID) injection 0.5 mg 0.5 mg, Intravenous, Every 2 Hours PRN, Severe Pain, Starting on Sun11/25/24 at 1040, For 10 days, (DEJAH) Caution: Look alike/sound alike drug alert If given for pain, use the following pain scale: Mild Pain = Pain Score of 1-3, CPOT 1-2 Moderate Pain = Pain Score of 4-6, CPOT 3-4 Severe Pain = Pain Score of 7-10, CPOT 5-8 labetalol (NORMODYNE,TRANDATE) injection 10 mg 10 mg, Intravenous, Every 4 Hours PRN, High Blood Pressure, SBP over 170 or DBP over 105, Starting on Sun11/25/24 at 1437, For 3 doses, As needed for SBP greater than 170 or DBP greater than 105 Give IV Push over 2 minutes. lactated ringers infusion 9 mL/hr, Intravenous, Continuous, Starting on Sun11/26/24 at 0600, For 1 day, May switch to NS IV at [facility] if renal / if indicated Restarted 11/25/2024 7:31 AM EDT Currently Infusing 11/25/2024 7:27 AM EDT 9 mL/ hr New Bag 11/25/2024 6:59 AM EDT 9 mL/hr 9 mL/hr lidocaine PF 1% (XYLOCAINE) injection 0.5 mL 0.5 mL, Injection, Once As Needed, IV Start, Starting on Sun11/25/24 at 0552, For 1 dose Given 11/25/2024 6:59 AM EDT 0.5 mL meloxicam (MOBIC) tablet 15 mg 15 mg, Oral, Once, On Sun11/25/24 at 0720, For 1 dose, Take with food. Based on patient request - if ordered for moderate or severe pain, provider allows for administration of a medication prescribed for a lower pain scale. If given for pain, use the following pain scale: Mild Pain = Pain Score of 1-3, CPOT 1-2 Moderate Pain = Pain Score of 4-6, CPOT 3-4 Severe Pain = Pain Score of 7-10, CPOT 5-8 Given 11/25/2024 7:23 AM EDT 15 mg Morphine sulfate (PF) injection 4 mg 4 mg, Intravenous, Every 2 Hours PRN, Moderate Pain, Starting on Sun11/25/24 at 1040, For 10 days, (DEJAH) Caution: Look alike/sound alike drug alert If given for pain, use the following pain scale: Mild Pain = Pain Score of 1-3, CPOT 1-2 Moderate Pain = Pain Score of 4-6, CPOT 3-4 Severe Pain = Pain Score of 7-10, CPOT 5-8 naloxone (NARCAN) injection 0.1 mg 0.1 mg, Intravenous, Every 5 Minutes PRN, Respiratory Depression, Starting on Sun11/25/24 at 1040, If respiratory rate is less than 8 breaths/minute or patient is difficult to arouse stop any narcotics and contact physician. Administer slow IV push. Repeat as ordered until patient's respiratory rate is greater than 12 breaths/minute. naloxone (NARCAN) injection 0.4 mg 0.4 mg, Intravenous, Every 5 Minutes PRN, Respiratory Depression, Starting on Sun11/25/24 at 1040, If respiratory rate is less than 8 breaths/minute or patient is difficult to arouse stop any narcotics and contact physician. Administer slow IV push. Repeat as ordered until patient's respiratory rate is greater than 12 breaths/minute. ondansetron (ZOFRAN) 2 mg/mL injection - ADS Override Pull Starting on Sun11/25/24 at 1038, For 1 dose, Created by cabinet override ondansetron (ZOFRAN) injection 4 mg 4 mg, Intravenous, Once As Needed, Nausea, Vomiting, If not given pre-op/intra-op, Starting on Sun11/25/24 at 0937, For 1 dose, If BOTH ondansetron (ZOFRAN) and promethazine (PHENERGAN) are ordered use ondansetron first and THEN promethazine IF ondansetron is ineffective. Given 11/25/2024 10:35 AM EDT 4 mg ondansetron (ZOFRAN) injection 4 mg 4 mg, Intravenous, Every 6 Hours PRN, Nausea, Vomiting, Starting on Sun11/25/24 at 1040, If BOTH ondansetron (ZOFRAN) and promethazine (PHENERGAN) are ordered use ondansetron first and THEN promethazine IF ondansetron is ineffective. Given 11/25/2024 11:13 AM EDT 4 mg oxyCODONE (ROXICODONE) 5 MG immediate release tablet - ADS Override Pull Starting on Sun11/25/24 at 1018, For 1 dose, Created by siddharth valle (DEJAH) If given for pain, use the following pain scale: Mild Pain = Pain Score of 1-3, CPOT 1-2 Moderate Pain = Pain Score of 4-6, CPOT 3-4 Severe Pain = Pain Score of 7-10, CPOT 5-8 oxyCODONE (ROXICODONE) immediate release tablet 5 mg 5 mg, Oral, Every 4 Hours PRN, Moderate Pain, Starting on Sun11/25/24 at 1018, For 10 days, (DEJAH) If given for pain, use the following pain scale: Mild Pain = Pain Score of 1-3, CPOT 1-2 Moderate Pain = Pain Score of 4-6, CPOT 3-4 Severe Pain = Pain Score of 7-10, CPOT 5-8 Given 11/25/2024 10:19 AM EDT 5 mg pregabalin (LYRICA) capsule 150 mg 150 mg, Oral, Once, On Sun11/25/24 at 0720, For 1 dose Given 11/25/2024 7:22 AM EDT 150 mg prochlorperazine (COMPAZINE) injection 5 mg 5 mg, Intravenous, Every 6 Hours PRN, Nausea, Vomiting, Starting on Sun11/25/24 at 1355, If multiple N/V medications ordered, use in the following order: Ondansetron, Prochlorperazine, Promethazine. Use PO unless patient refuses or patient unable to swallow. Given 11/25/2024 2:46 PM EDT 5 mg sodium chloride 0.9 % bolus 500 mL 500 mL, Intravenous, at 1,000 mL/hr, Administer over 0.5 Hours, 3 Times Daily PRN, SBP less than 95 or urine output less than 30 mL/h x 2 hours, Starting on Sun11/25/24 at 1437, For 3 days sodium chloride 0.9 % infusion 120 mL/hr, Intravenous, Continuous, Starting on Sun11/25/24 at 1042, For 1 day New Bag 11/25/2024 11:12 AM EDT 120 mL/hr 120 mL/hr documented in this encounter Active and Recently Administered Medications Times are shown in EDT. Scheduled Medication Order 11/23/2024 11/24/2024 11/25/2024 acetaminophen (TYLENOL) tablet 1,000 mg (COMPLETED) 1,000 mg, Oral, Once, On Sun11/25/24 at 0720, For 1 dose, If given for fever, use fever parameter: fever greater than 100.4 F Based on patient request - if ordered for moderate or severe pain, provider allows for administration of a medication prescribed for a lower pain scale. Do not exceed 4 grams of acetaminophen in a 24 hr period. Max dose of 2gm for AST/ALT greater than 120 units/L. If given for pain, use the following pain scale: Mild Pain = Pain Score of 1-3, CPOT 1-2 Moderate Pain = Pain Score of 4-6, CPOT 3-4 Severe Pain = Pain Score of 7-10, CPOT 5-8 0722 (Given - Provid er: Xiao Lugo RN - Comment: DARREL ALANIZ) acetaminophen (TYLENOL) tablet 1,000 mg 1,000 mg, Oral, Every 8 Hours, First dose on Sun11/25/24 at 1500, For 48 hours, If given for fever, use fever parameter: fever greater than 100.4 F Based on patient request - if ordered for moderate or severe pain, provider allows for administration of a medication prescribed for a lower pain scale. Do not exceed 4 grams of acetaminophen in a 24 hr period. Max dose of 2gm for AST/ALT greater than 120 units/L. If given for pain, use the following pain scale: Mild Pain = Pain Score of 1-3, CPOT 1-2 Moderate Pain = Pain Score of 4-6, CPOT 3-4 Severe Pain = Pain Score of 7-10, CPOT 5-8 1446 (Given - Provid er: Pablo Conway RN) aspirin EC tablet 81 mg 81 mg, Oral, Every 12 Hours Scheduled, First dose on Sun11/26/24 at 0900, Do not crush or chew the capsules or tablets. The drug may not work as designed if the capsule or tablet is crushed or chewed. Swallow whole. Do not exceed 4 grams of aspirin in a 24 hr period. If given for pain, use the following pain scale: Mild Pain = Pain Score of 1-3, CPOT 1-2 Moderate Pain = Pain Score of 4-6, CPOT 3-4 Severe Pain = Pain Score of 7-10, CPOT 5-8, Indications: VTE Prophylaxis ceFAZolin 1000 mg IVPB in 100 mL NS (MBP) (COMPLETED) 1,000 mg, Intravenous, Administer over 30 Minutes, Once, On Sun11/25/24 at 0939, For 1 dose, Administer this med on arrival to the PACU. Caution: Look alike/sound alike drug alert, Indications: Surgical Prophylaxis 0951 (New Bag - Prov ider: Norris August RN)1020 (Stopped - Provider: Norris August RN) ceFAZolin 2000 mg IVPB in 100 mL NS (MBP) (COMPLETED) 2 g, Intravenous, Administer over 30 Minutes, Once, On Sun11/25/24 at 0555, For 1 dose, Administer Within 1 Hour of Surgical Incision. Redose 4 Hours From Pre-Op Dose if Procedure Ongoing or Blood Loss Greater Than 1.5 L Caution: Look alike/sound alike drug alert, Indications: Surgical Prophylaxis 0731 (New Bag - Prov ider: Cortez Campuzano CRNA)0949 (Stopped - Provider: Norris August RN - Comment: not infusing upon admission to PACU) ceFAZolin 2000 mg IVPB in 100 mL NS (MBP) 2,000 mg, Intravenous, Administer over 30 Minutes, Every 8 Hours, First dose on Sun11/25/24 at 1800, For 2 doses, Caution: Look alike/sound alike drug alert, Indications: Surgical Prophylaxis 1800 (Due) ethyl alcohol 62 % 2 each (COMPLETED) 2 each (2 Swab), Nasal, Once, On Sun11/25/24 at 0555, For 1 dose, Administer 15-60 minutes prior to surgery following these steps: Clean nostrils with a tissue, apply a 62% ethyl alcohol swab to the right nostril gently rotating the swab for 30 seconds, repeat the process with the 2nd swab in the left nostril. 0703 (Given - Provid er: Xiao Lugo RN) famotidine (PEPCID) tablet 20 mg (COMPLETED) 20 mg, Oral, Once, On Sun11/25/24 at 0555, For 1 dose 0703 (Given - Provid er: Xiao Lugo RN) meloxicam (MOBIC) tablet 15 mg (COMPLETED) 15 mg, Oral, Once, On Sun11/25/24 at 0720, For 1 dose, Take with food. Based on patient request - if ordered for moderate or severe pain, provider allows for administration of a medication prescribed for a lower pain scale. If given for pain, use the following pain scale: Mild Pain = Pain Score of 1-3, CPOT 1-2 Moderate Pain = Pain Score of 4-6, CPOT 3-4 Severe Pain = Pain Score of 7-10, CPOT 5-8 0723 (Given - Provid er: Xiao Lugo RN - Comment: ERAS PT) meloxicam (MOBIC) tablet 15 mg 15 mg, Oral, Daily, First dose on Sun11/25/24 at 1042, Take with food. If given for pain, use the following pain scale: Mild Pain = Pain Score of 1-3, CPOT 1-2 Moderate Pain = Pain Score of 4-6, CPOT 3-4 Severe Pain = Pain Score of 7-10, CPOT 5-8 1213 (Not Given - Pr ovider: Pablo Conway RN - Reason: Other (Comment Required) - Comment: N/V) pregabalin (LYRICA) capsule 150 mg (COMPLETED) 150 mg, Oral, Once, On Sun11/25/24 at 0720, For 1 dose 0722 (Given - Provid er: Xiao Lugo RN) sodium chloride 0.9 % flush 10 mL 10 mL, Intravenous, Every 12 Hours Scheduled, First dose on Sun11/25/24 at 1042 1213 (Canceled Entry - Provider: Pablo Conway RN - Comment: infusing) tranexamic acid 1000 mg in 100 mL 0.7% NaCl infusion (premix) (COMPLETED) 1,000 mg, Intravenous, Administer over 30 Minutes, Once, On 9/2/25 at 0555, For 1 dose, Give prior to incision. 0731 (New Bag - Prov ider: Cortez Campuzano CRNA)0940 (Stopped - Provider: Norris August RN - Comment: not infusing upon admission to PACU) tranexamic acid 1000 mg in 100 mL 0.7% NaCl infusion (premix) (COMPLETED) 1,000 mg, Intravenous, Administer over 30 Minutes, Once, On Sun11/25/24 at 0555, For 1 dose, Hip Replacement: Give at start of incision closure. Knee Replacement: Give 5-10 minutes before tourniquet release. 0902 (New Bag - Prov ider: Cortez Campuzano CRNA)0940 (Stopped - Provider: Norris August RN - Comment: not infusing upon admission to PACU) Continuous Medication Order 11/23/2024 11/24/2024 11/25/2024 lactated ringers infusion 9 mL/hr, Intravenous, Continuous, Starting on Sun11/26/24 at 0600, For 1 day, May switch to NS IV at O if renal / if indicated 0659 (New Bag - Prov ider: Xiao Lugo RN)0727 (Currently Infusing - Provider: Cortez Campuzano CRNA)0730 (Paused - Provider: Cortez Campuzano CRNA - Comment: Switch to gravity)0731 (Restarted - Provider: Cortez Campuzano CRNA)0936 (Anesthesia Volume Adjustment - Provider: Cortez Campuzano CRNA)2038 (Due: Order Ending - Provider: Automatic Discharge Provider - Comment: [Order ends at this time. Document the following action when infusion is complete: Stopped]) sodium chloride 0.9 % infusion 120 mL/hr, Intravenous, Continuous, Starting on Sun11/25/24 at 1042, For 1 day 1112 (New Bag - Prov ider: Pablo Conway RN)2038 (Due: Order Ending - Provider: Automatic Discharge Provider - Comment: [Order ends at this time. Document the following action when infusion is complete: Stopped]) PRN Medication Order 11/23/2024 11/24/2024 11/25/2024 fentaNYL citrate (PF) (SUBLIMAZE) injection 50 mcg (CANCELED) 50 mcg, Intravenous, Every 5 Minutes PRN, Moderate Pain, Starting on Sun11/25/24 at 0937, For 5 doses, If given for pain, use the following pain scale: Mild Pain = Pain Score of 1-3, CPOT 1-2 Moderate Pain = Pain Score of 4-6, CPOT 3-4 Severe Pain = Pain Score of 7-10, CPOT 5-8 0949 (Given - Provid er: Norris August RN)0957 (Given - Provider: Norris August RN)1020 (Given - Provider: Norris August RN)1025 (Given - Provider: Norris August RN) HYDROmorphone (DILAUDID) injection 0.5 mg (CANCELED) 0.5 mg, Intravenous, Every 5 Minutes PRN, Severe Pain, Starting on Sun11/25/24 at 0937, For 4 doses, Maximum total dose of hydromorphone is 2 mg. If given for pain, use the following pain scale: Mild Pain = Pain Score of 1-3, CPOT 1-2 Moderate Pain = Pain Score of 4-6, CPOT 3-4 Severe Pain = Pain Score of 7-10, CPOT 5-8 0956 (Given - Provid er: Norris August RN)1008 (Given - Provider: Norris August RN)1024 (Given - Provider: Norris August RN) HYDROmorphone (DILAUDID) injection 0.5 mg(Linked Group 1) 0.5 mg, Intravenous, Every 2 Hours PRN, Severe Pain, Starting on Sun11/25/24 at 1040, For 10 days, (DEJAH) Caution: Look alike/sound alike drug alert If given for pain, use the following pain scale: Mild Pain = Pain Score of 1-3, CPOT 1-2 Moderate Pain = Pain Score of 4-6, CPOT 3-4 Severe Pain = Pain Score of 7-10, CPOT 5-8 labetalol (NORMODYNE,TRANDATE) injection 10 mg 10 mg, Intravenous, Every 4 Hours PRN, High Blood Pressure, SBP over 170 or DBP over 105, Starting on Sun11/25/24 at 1437, For 3 doses, As needed for SBP greater than 170 or DBP greater than 105 Give IV Push over 2 minutes. lidocaine PF 1% (XYLOCAINE) injection 0.5 mL (COMPLETED) 0.5 mL, Injection, Once As Needed, IV Start, Starting on Sun11/25/24 at 0552, For 1 dose 0659 (Given - Provid er: Xiao Lugo RN) Morphine sulfate (PF) injection 4 mg(Linked Group 2) 4 mg, Intravenous, Every 2 Hours PRN, Moderate Pain, Starting on Sun11/25/24 at 1040, For 10 days, (DEJAH) Caution: Look alike/sound alike drug alert If given for pain, use the following pain scale: Mild Pain = Pain Score of 1-3, CPOT 1-2 Moderate Pain = Pain Score of 4-6, CPOT 3-4 Severe Pain = Pain Score of 7-10, CPOT 5-8 naloxone (NARCAN) injection 0.1 mg(Linked Group 1) 0.1 mg, Intravenous, Every 5 Minutes PRN, Respiratory Depression, Starting on Sun11/25/24 at 1040, If respiratory rate is less than 8 breaths/minute or patient is difficult to arouse stop any narcotics and contact physician. Administer slow IV push. Repeat as ordered until patient's respiratory rate is greater than 12 breaths/minute. naloxone (NARCAN) injection 0.4 mg(Linked Group 2) 0.4 mg, Intravenous, Every 5 Minutes PRN, Respiratory Depression, Starting on Sun11/25/24 at 1040, If respiratory rate is less than 8 breaths/minute or patient is difficult to arouse stop any narcotics and contact physician. Administer slow IV push. Repeat as ordered until patient's respiratory rate is greater than 12 breaths/minute. ondansetron (ZOFRAN) injection 4 mg (COMPLETED) 4 mg, Intravenous, Once As Needed, Nausea, Vomiting, If not given pre-op/intra-op, Starting on Sun11/25/24 at 0937, For 1 dose, If BOTH ondansetron (ZOFRAN) and promethazine (PHENERGAN) are ordered use ondansetron first and THEN promethazine IF ondansetron is ineffective. 1035 (Given - Provid er: Norris August RN) ondansetron (ZOFRAN) injection 4 mg (CANCELED)(Linked Group 3) 4 mg, Intravenous, Every 6 Hours PRN, Nausea, Vomiting, Starting on Sun11/25/24 at 1040, If BOTH ondansetron (ZOFRAN) and promethazine (PHENERGAN) are ordered use ondansetron first and THEN promethazine IF ondansetron is ineffective. 1113 (Given - Provid er: Pablo Conway RN)1114 (Not Given: See Alt - Provider: Pablo Conway RN) oxyCODONE (ROXICODONE) immediate release tablet 5 mg 5 mg, Oral, Every 4 Hours PRN, Moderate Pain, Starting on Sun11/25/24 at 1018, For 10 days, (DEJAH) If given for pain, use the following pain scale: Mild Pain = Pain Score of 1-3, CPOT 1-2 Moderate Pain = Pain Score of 4-6, CPOT 3-4 Severe Pain = Pain Score of 7-10, CPOT 5-8 1019 (Given - Provid er: Norris August RN) prochlorperazine (COMPAZINE) injection 5 mg 5 mg, Intravenous, Every 6 Hours PRN, Nausea, Vomiting, Starting on Sun11/25/24 at 1355, If multiple N/V medications ordered, use in the following order: Ondansetron, Prochlorperazine, Promethazine. Use PO unless patient refuses or patient unable to swallow. 1446 (Given - Provid er: Pablo Conway RN) ropivacaine (NAROPIN) 0.5 % injection (CANCELED) As Needed, Starting on Sun11/25/24 at 0800 0800 (Given - Provid er: Raymundo Gil MD) sodium chloride (NS) irrigation solution (CANCELED) As Needed, Starting on Sun11/25/24 at 0800 0800 (Given - Provid er: Raymundo Gil MD) sodium chloride 0.9 % bolus 500 mL 500 mL, Intravenous, at 1,000 mL/hr, Administer over 0.5 Hours, 3 Times Daily PRN, SBP less than 95 or urine output less than 30 mL/h x 2 hours, Starting on Sun11/25/24 at 1437, For 3 days sodium chloride 0.9 % flush 1-10 mL 1-10 mL, Intravenous, As Needed, Line Care, Starting on Sun11/25/24 at 1040 sodium chloride 0.9 % infusion 40 mL 40 mL, Intravenous, As Needed, Line Care, Starting on Sun11/25/24 at 1040, Following administration of an IV intermittent medication, flush line with 40mL NS at 100mL/hr. sterile water irrigation solution (CANCELED) As Needed, Starting on Sun11/25/24 at 0805 0805 (Given - Provid er: Raymundo Gil MD - Comment: for fire safety/insts) Linked Groups Order Group 1: HYDROmorphone (DILAUDID) injection 0.5 mgJump to med 0.5 mg, Intravenous, Every 2 Hours PRN, Severe Pain, Starting on Sun11/25/24 at 1040, For 10 days, (DEJAH) Caution: Look alike/sound alike drug alert If given for pain, use the following pain scale: Mild Pain = Pain Score of 1-3, CPOT 1-2 Moderate Pain = Pain Score of 4-6, CPOT 3-4 Severe Pain = Pain Score of 7-10, CPOT 5-8 And naloxone (NARCAN) injection 0.1 mgJump to med 0.1 mg, Intravenous, Every 5 Minutes PRN, Respiratory Depression, Starting on Sun11/25/24 at 1040, If respiratory rate is less than 8 breaths/minute or patient is difficult to arouse stop any narcotics and contact physician. Administer slow IV push. Repeat as ordered until patient's respiratory rate is greater than 12 breaths/minute. Group 2: Morphine sulfate (PF) injection 4 mgJump to med 4 mg, Intravenous, Every 2 Hours PRN, Moderate Pain, Starting on Sun11/25/24 at 1040, For 10 days, (DEJAH) Caution: Look alike/sound alike drug alert If given for pain, use the following pain scale: Mild Pain = Pain Score of 1-3, CPOT 1-2 Moderate Pain = Pain Score of 4-6, CPOT 3-4 Severe Pain = Pain Score of 7-10, CPOT 5-8 And naloxone (NARCAN) injection 0.4 mgJump to med 0.4 mg, Intravenous, Every 5 Minutes PRN, Respiratory Depression, Starting on Sun11/25/24 at 1040, If respiratory rate is less than 8 breaths/minute or patient is difficult to arouse stop any narcotics and contact physician. Administer slow IV push. Repeat as ordered until patient's respiratory rate is greater than 12 breaths/minute. Group 3: ondansetron ODT (ZOFRAN-ODT) disintegrating tablet 4 mg (CANCELED) 4 mg, Oral, Every 6 Hours PRN, Nausea, Vomiting, Starting on Sun11/25/24 at 1040, If BOTH ondansetron (ZOFRAN) and promethazine (PHENERGAN) are ordered use ondansetron first and THEN promethazine IF ondansetron is ineffective. Place on tongue and allow to dissolve. Or ondansetron (ZOFRAN) injection 4 mg (CANCELED)Jump to med 4 mg, Intravenous, Every 6 Hours PRN, Nausea, Vomiting, Starting on Sun11/25/24 at 1040, If BOTH ondansetron (ZOFRAN) and promethazine (PHENERGAN) are ordered use ondansetron first and THEN promethazine IF ondansetron is ineffective. documented in this encounter Care Teams Automotive Sales Associate Relationship Specialty Start Date End Date Jay Vernon MD [address] [place] [address] [place] [address] PCP - General Family Medicine 05/14/19 documented as of this encounter
--- OUTSIDE RECORDS SUMMARY | 2024-11-25 07:15 | XMS_ITS | Encounter Summary ---
Author Organization [facility] Address [address] [place] [id number] Care Team Providers Care Hydro Sprayer Operator Name Role Phone Jay Vernon MD Primary Care Provider Reason for Visit * Auth/Cert Specialty Diagnoses / Procedures Referred By Contac t Referred To Contact Diagnoses Primary osteoarthritis of left hip Primary osteoarthritis of left hip [M16.12] Procedures PA ARTHRP ACETBLR/PROX FEM PROSTC AGRFT/ALGRFT Left total hip arthroplasty Referral ID Status Reason Start Date Expiration Date Visits Re quested Visits Authorized [id number] 1 1 Encounter Details Date Type Department Care Team (Late st Contact Info) Description 11/25/2024 7:15 AM EDT - 11/25/2024 10:08 AM EDT Surgery [facility] [address] [place], [place] [address] [place] [address] [place] [address] [address] [place] [address] TOTAL HIP ARTHROPLASTY ANTERIOR MODIFIED [00698 (CPT )] Social History Tobacco Use Types Packs/Day Years [...] or training? Not on file Preferred Language Marshallese 11/11/2024 Comments No Sex and Gender Information Value Date Recorded Sex Assigned at Not on file Legal Sex Female 11:34 AM EST Gender Identity Not on file Sexual Orientation Not on file documented as of this encounter Last Filed Vital Signs Vital Sign Reading Time Taken Comments Blood Pressure 125/84 11/25/2024 10:05 AM EDT Pulse 64 11/25/2024 10:05 AM EDT Temperature 36.2 C (97.1 F) 11/25/2024 10:00 AM EDT Respiratory Rate 16 11/25/2024 10:00 AM EDT Oxygen Saturation 98% 11/25/2024 10:05 AM EDT Inhaled Oxygen Concentration - - Weight [...] 6:47 AM EDT Xiao Lugo RN * [place] Suicide Severity Rating Scale (Screener/Recent Self-Report) Question Answer Date of Assessment Author 6. Suicidal Behavior (Lifetime) No 6:47 AM EDT Xiao Lugo RN documented as of this encounter Discharge Instructions * Discharge Instructions* Curt Conwayis TIFFANY Danielson - 11/25/2024 1:11 PM EDT COLD THERAPY [...] Your Cold Therapy Wrap is effective and qstuwx-qa-ndw, and you will be encouraged to apply [...] results, lay the Gel Bags flat and xdro-bj-fwvl in the freezer. Once frozen, slide Gel [...] Hip Replacement Surgery: What to Know After (Marshallese) * How to Use an Incentive Spirometer (Marshallese) * Acetaminophen Capsules or Tablets (Marshallese) * Aspirin Tablets (Marshallese) * Docusate; Senna Tablets (Marshallese) * Oxycodone Capsules or Tablets (Marshallese) * Prochlorperazine Tablets (Marshallese) documented in this encounter Medications at Time [...] capsule 11/13/2024 Cholecalciferol (Vitamin D3) 1.25 MG (70276 UT) capsule Take 1 capsule by mouth [...] 3:00 AM Cholecalciferol (Vitamin D3) 1.25 MG (35071 UT) capsule Take 1 capsule by mouth [...] shingles 2 years ago- face and back IONE (hard of hearing) no hearing aids Hypertension [...] of this encounter note is an electronic jet mechanic/translation of spoken language to printed text. The [...] to the H&P. Pre-Op H&P Shireen Rain [id number] [id number] Chief complaint: I am here for [...] 3:00 AM Cholecalciferol (Vitamin D3) 1.25 MG (70489 UT) capsule Take 1 capsule by mouth [...] shingles 2 years ago- face and back IONE (hard of hearing) no hearing aids Hypertension [...] from the original note were not included. [facility] Orthopaedic Surgery Clinic Note Subjective Chief Complaint [...] mouth Daily. Cholecalciferol (Vitamin D3) 1.25 MG (79051 UT) capsule Take 1 capsule by mouth [...] Instability: None Deformities: None Functional testing: Positive [facility] Short on the left compared to the right Imaging/Studies Imaging Results (Last 24 Hours) Procedure Component Value Units Date/Time XR Hip With or Without Pelvis 2 - 3 View Left [[id number]] Resulted: 10/31/241047 Updated: 10/31/241047 Narrative: Left Hip Radiographs Indication: left hip pain Views: low AP pelvis and lateral of the left hip Comparison: no prior studies available for review Findings: Advanced arthritis, with ukfn-bz-kbss contact, pseudosubluxation of the hip laterally, with [...] conservative treatment modalities have not resulted in care home pain relief. The symptoms have progressed to [...] Gil MD 10/31/24 11:02 EDT Dictated Utilizing [employer] Dictation documented in this encounter Nursing Notes [...] mobility OR30 head SURGEON: Raymundo Gil MD STUD SETTER: Jenn Rodriguez PA-C (Jenn Rodriguez PA-C was present and necessary for positioning, draping, retraction, instrumentation and closure.) SPECIMENS: None IMPLANTS: Implant Name Type Inv. Item Serial No. Grader Operator Lot No. LRB No. Used Action DEV CONTRL TISS STRATAFIX SPIRAL MNCRYL UD 3/0 PLS 60CM - [id number] Implant DEV CONTRL TISS STRATAFIX SPIRAL MNCRYL UD 3/0 PLS 60CM [employer] DIV OF J AND J [id number] Left 1 Implanted DEV CONTRL TISS STRATAFIX SYMM PDS PLUS JARRETT CT-1 45CM - [id number] Implant DEV CONTRL TISS STRATAFIX SYMM PDS PLUS JARRETT CT-1 45CM [employer] DIV OF J AND J [id number] Left 1 Implanted INSRT HIP OR30 2/MOBL XLPE SZ22/36 - [id number] Implant INSRT HIP OR30 2/MOBL XLPE SZ22/36 [employer] [id number] Left 1 Implanted LINER HIP OR30 2/MOBL SZ36/48 - [id number] Implant LINER HIP OR30 2/MOBL SZ36/48 [employer] [id number] Left 1 Implanted SCRW SPH HD REFLECTION 6.5X30MM - [id number] Implant SCRW SPH HD REFLECTION 6.5X30MM [employer] [id number] Left 1 Implanted SHLL ACET R3 3H STD 48MM - [id number] Implant SHLL ACET R3 3H STD 48MM [employer] [id number] Left 1 Implanted STEM FEM/HIP POLARSTEM W/COLR STD SZ2 - [id number] Implant STEM FEM/HIP POLARSTEM W/COLR STD SZ2 [employer] [id number] Left 1 Implanted HD FEM/HIP OXINIUM TPR 12/14 22MM PLS0 - [id number] Implant HD FEM/HIP OXINIUM TPR 12/14 22MM [id number] AND NEPHEW [id number] Left 1 Implanted ANESTHESIA: Spinal STAFF: Interior Horticulturist: Reagan Duran RN Physician Machine Quilt Stuffer: Jenn Rodriguez PA-C Cartographic Technician: Quinton Camilo Scrub Person: Annabel Granger; Ceh Marie Vendor Finance Manager: Reagan Bernal ([employer]) Assembling Machine Operator: Jenn Brownlee ESTIMATED BLOOD LOSS: 50 cc [...] prepare the lateral aspect, followed by the T-handle canal finder, then sequential broaching of the femur [...] wasclosed with #1 Vicryl in an interrupted qmrrke-za-gdxmc fashion in 3 strategic locations both proximally, [...] shingles 2 years ago- face and back IONE (hard of hearing) no hearing aids Hypertension [...] WISDOM TOOTH EXTRACTION General Information Row Name 11/25/241655 OT Time and Intention Document Type evaluation -AR Mode of Treatment individual therapy;occupational therapy -AR Row Name 11/25/241655 General Information Patient Profile Reviewed yes -AR [...] walk-in shower with seat and raised commode. -MN Row Name 11/25/241655 Cognition Orientation Status (Cognition) oriented x 4 -MN Row Name 11/25/241655 Safety Issues/Impairments Affecting Functional Mobility Safety Issues Affecting Function (Mobility) safety precautions follow- through/compliance;safety precaution awareness -AR Impairments Affecting Function (Mobility) balance;endurance/activity tolerance;pain;strength;range of motion (ROM) -AR User Anthony (r) = Recorded By, (t) = Taken By, (c) = Cosigned By Initials Name Provider Type Chrissie Zapata OT Occupational Therapist Mobility/ADL's Row Name 11/25/241657 Bed Mobility Comment, (Bed Mobility) Issued leg licensed psychologist director and educated pt and SO on use of device to assist with bed mobility and car transfers. -MN Row Name 11/25/241657 Transfers Transfers sit-stand transfer;stand-sit transfer -AR Comment, (Transfers) Cues for hand placement and to advance LLE during hmgor-ja-vzz transition for comfort. Educated pt and SO on safe car transfer technique. -MN Row Name 11/25/241657 Sit-Stand Transfer Sit-Stand [place] (Transfers) verbal cues;contact guard -AR Assistive Device (Sit-Stand Transfers) walker, front-wheeled -MN Row Name 11/25/241657 Stand-Sit Transfer Stand-Sit [place] (Transfers) contact guard;verbal cues -AR Assistive Device (Stand-Sit Transfers) walker, front-wheeled -MN Row Name 11/25/241657 Activities of Daily Living BADL Assessment/Intervention bathing;upper body dressing;lower body dressing;feeding -MN Row Name 11/25/241657 Mobility Extremity Weight-bearing Status left lower extremity -AR Left Lower Extremity (Weight-bearing Status) weight-bearing as tolerated (WBAT) -MN Row Name 11/25/241657 Bathing Assessment/Intervention Comment, (Bathing) Issued LH sponge to assist at home and educated on use. -MN Row Name 11/25/241657 Upper Body Dressing Assessment/Training [place] Level (Upper Body Dressing) doff;front opening garment;pajama/robe;don;pull-over garment;supervision -AR Position (Upper Body Dressing) supported sitting -AR Row Name 11/25/24 1658 Lower Body Dressing Assessment/Training [place] Level (Lower Body Dressing) don;pants/bottoms;socks;contact guard assist;shoes/slippers;minimum assist (75% patient effort) -AR Assistive Devices (Lower Body Dressing) sash maker;sock-aid;long-handled shoe horn -AR Position (Lower Body Dressing) [...] (OT) Activity/Assistive Device (Transfer Goal 1, OT) udy-xh-zzdjt/cpdkj-vb-kwu;toilet;walker, rolling -AR [place] Level/Cues Needed (Transfer Goal 1, OT) contact guard required;verbal cues required -AR Time Frame (Transfer Goal 1, OT) care home goal (LTG);2 days -AR Progress/Outcome (Transfer Goal 1, OT) goal partially met -AR Row Name 11/25/24 172 Dressing Goal 1 (OT) Activity/Device (Dressing Goal 1, OT) lower body dressing;sash maker;sock-aid -AR [place]/Cues Needed (Dressing Goal 1, OT) contact guard [...] OT Occupational Therapist Clinical Impression Row Name 11/25/241723 Pain Assessment Pretreatment Pain Rating 2/10 -AR Posttreatment Pain Rating 4/10 -AR Pain Location hip -AR Pain Side/Orientation left;generalized -AR Pain Management Interventions activity modification encouraged;cold applied;movement retraining implemented -AR Response to Pain Interventions activity participation with tolerable pain -AR Row Name 11/25/241723 Plan of Care Review Plan of Care Reviewed With patient;significant other -AR Outcome Evaluation OT educated pt and SO on ADL retraining for comfort, home safety and transfer training. Issued self-care kit and gait belt for home and educated on use. She lives alone, however SOwill be staying with her to assist. Recommend DC home with initial 24/7 assist. -AR Row Name 11/25/241723 Therapy Assessment/Plan (OT) Rehab Potential (OT) good -AR Criteria for Skilled Therapeutic Interventions Met (OT) yes -AR Therapy Frequency (OT) daily -AR Row Name 11/25/241723 Therapy Plan Review/Discharge Plan (OT) Equipment Needs Upon Discharge (OT) walker, rolling -AR Anticipated Discharge Disposition (OT) home with 24/7 care -AR [facility] Name 11/25/241723 Vital Signs Pre Patient Position Sitting -AR [...] of a flat bed without bedrails? 3 -LH 2 -TB Moving to and from a bed to a chair (including a wheelchair)? 3 -LH 2 -TB Standing up from a chair using your arms (e.g., wheelchair, bedside chair)? 3 - 2 -TB Climbing 3-5 steps with a railing? 2 -LH 1 -TB To walk in hospital room? 3 -LH 2 -TB AM-PAC 6 Clicks Score (PT) 17 -LH 11 -TB Highest Level of Mobility Goal [...] AR Chrissie Nava OT Occupational Therapist Pablo Barnes RN Registered Nurse Negra Hernandez, PT Physical Therapist Occupational Therapy Education Title: PT 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 Therapies (Done) Topic: Occupational Therapy (Done) Point: ADL training (Done) Learning Progress Summary Patient Eager, E,TB,D,H, VU,DU by AR at 11/25/2024 1728 Significant Other Eager, E,TB,D,H, VU,DU by AR at 11/25/2024 172 Point: Precautions (Done) Learning Progress Summary Patient Eager, E,TB,D,H, VU,DU by AR at 11/25/2024 1728 Significant Other Eager, E,TB,D,H, VU,DU by AR at 11/25/2024 172 Point: Body mechanics (Done) Learning Progress Summary Patient Eager, E,TB,D,H, VU,DU by AR at 11/25/2024 1728 Significant Other Eager, E,TB,D,H, VU,DU by AR at 11/25/2024 1728 User Anthony Initials Effective Dates Name Provider Type Discipline [place] 10/03/22 - Chrissie Nava OT Occupational Therapist [...] Re-Cert Due Date 12/05/24 -AR Timed Charges 77625 - OT Self Care/Mgmt Minutes 11 -AR [...] Description Service Date Service Provider Modifiers Qty 75552875893 HC OT SELF CARE/MGMT/TRAIN EA 15 MIN 11/25/2024 Chrissie Nava OT GO 1 47044061897 HC OT EVAL LOW COMPLEXITY 4 11/25/2024 Chrissie [...] shingles 2 years ago- face and back IONE (hard of hearing) no hearing aids Hypertension [...] in place WISDOM TOOTH EXTRACTION General Information [facility] Name 11/25/24 1414 Physical Therapy Time and Intention Document Type evaluation - Mode of Treatment physical therapy -[facility] Name 11/25/24 1414 General Information Patient Profile Reviewed yes - Prior Level of Function independent:;all household mobility;community mobility;gait;transfer;bed mobility;ADL's;dressing;bathing;driving;shopping No AD use at baseline. Endorses 1 acute fall - Existing Precautions/Restrictions fall;left;hip, anterior;other (see comments) LLE WBAT, nausea/vomiting w/ mobility - Barriers to Rehab none identified -[facility] Name 11/25/24 1414 Living Environment Current Living Arrangements home - People in Home alone;other (see comments) friend will be staying at d/c -[facility] Name 11/25/24 1414 Home Main Entrance Number of Stairs, Main Entrance one - Stair Railings, Main Entrance railing on right side (ascending) -[facility] Name 11/25/24 1414 Stairs Within Home, Primary Number of Stairs, Within Home, Primary none -[facility] Name 11/25/24 1414 Cognition Orientation Status (Cognition) oriented x 3 -[facility] Name 11/25/24 1414 Safety Issues/Impairments Affecting Functional [...] Bed Mobility Bed Mobility supine-sit;sit-supine - Supine-Sit [place] (Bed Mobility) contact guard;verbal cues - Sit-Supine [place] (Bed Mobility) minimum assist (75% patient effort);verbal [...] 11/25/24 1552 11/25/24 1414 Sit-Stand Transfer Sit-Stand [place] (Transfers) verbal cues;contact guard - contact guard;2 person assist;verbal cues - Assistive Device (Sit-Stand Transfers) walker, front-wheeled - walker, front- wheeled - Row Name 11/25/24 1552 11/25/24 1414 Gait/Stairs (Locomotion) [place] Level (Gait) contact guard;1 person assist;verbal cues - contact guard;2 person assist;verbal cues - Assistive Device (Gait) walker, front-wheeled - walker, front-wheeled - Patient was able to Ambulate yes -LH yes PT returned for ambulation - Distance in Feet (Gait) 200 -LH 100 -LH Deviations/Abnormal Patterns (Gait) left sided deviations;gilles decreased;gait speed decreased;weight shifting decreased;stride length decreased - left sided deviations;gilles decreased;gait speed decreased;weight shifting decreased;stride length decreased - Bilateral Gait Deviations forward flexed posture - forward flexed posture - [place] Level (Stairs) contact guard;2 person assist;verbal cues - unable to assess - Handrail Location (Stairs) right side (ascending);right side (descending) - -- Number of Steps (Stairs) 3 -LH -- Ascending Technique (Stairs) rxfu-ly-abqz - -- Descending Technique (Stairs) offm-ku-hihq - -- Comment, (Gait/Stairs) pt demo improved gait mechanics w/ continued decreased WB through LLE. No LOB or knee buckling. No nausea this ambulation trial. She completed stair training w/ education on correct sequencing. She was able to complete safely and w/o LOB -LH Pt demo step through gait pattern w/ decreased gilles and decreased weight acceptance through LLE. VCs for upright posture, AD management, increased step length, and increased WB through LLE. No LOB or knee buckling. Pt became nauseous and began vomiting, requiring chair to be brought up and return to room. Further mobility deferred -[facility] Name 11/25/24 1258 Gait/Stairs (Locomotion) Patient was able to Ambulate no, other medical factors prevent ambulation - Reason Patient was unable to Ambulate Nausea/Vomiting -[facility] Name 11/25/24 1552 11/25/24 141 Mobility Extremity Weight-bearing Status left lower extremity - left lower extremity - Left Lower Extremity (Weight-bearing Status) weight-bearing as tolerated (WBAT) - weight-bearing as tolerated (WBAT) - User Anthony (r) = Recorded By, (t) = Taken By, (c) = Cosigned By Initials Name Provider Type Negra Gutierrez PT Physical Therapist Obj/Interventions [facility] Name 11/25/24 141 Range of Motion Comprehensive General Range of Motion bilateral lower extremity ROM WFL -[facility] 11/25/241413 Strength Comprehensive (MMT) Comment, General Manual Muscle Testing (MMT) Assessment Pt able to perform B ankle DF/PF, heel slide, and quad set -[facility] Name 11/25/241413 Motor Skills Therapeutic Exercise hip;knee;ankle -[facility] 11/25/241413 Hip (Therapeutic Exercise) Hip (Therapeutic Exercise) isometric exercises;strengthening exercise - Hip Isometrics (Therapeutic Exercise) bilateral;gluteal sets;3 repetitions - Hip Strengthening (Therapeutic Exercise) left;heel slides;3 repetitions -[facility] Name 11/25/241413 Knee (Therapeutic Exercise) Knee (Therapeutic Exercise) isometric exercises - Knee Isometrics (Therapeutic Exercise) bilateral;quad sets;3 repetitions -[facility] 11/25/241413 Ankle (Therapeutic Exercise) Ankle (Therapeutic Exercise) AROM (active range of motion) - Ankle AROM (Therapeutic Exercise) bilateral;dorsiflexion;plantarflexion;5 repetitions -[facility] 11/25/241413 Balance Balance Assessment sitting static balance;sitting [...] Comment, Balance No LOB or knee buckling -[facility] Name 11/25/241413 Sensory Assessment (Somatosensory) Sensory Assessment (Somatosensory) LE sensation intact - User Anthony (r) = Recorded By, (t) = Taken By, (c) = Cosigned By Initials Name Provider Type Negra Gutierrez, PT Physical Therapist Goals/Plan [facility] Name 11/25/241413 Bed Mobility Goal 1 (PT) Activity/Assistive Device (Bed Mobility Goal 1, PT) bed mobility activities, all - [place] Level/Cues Needed (Bed Mobility Goal 1, PT) supervision required - Time Frame (Bed Mobility Goal 1, PT) short term goal (STG);2 days - Progress/Outcomes (Bed Mobility Goal 1, PT) new goal -[facility] Name 11/25/241413 Transfer Goal 1 (PT) Activity/Assistive Device (Transfer Goal 1, PT) wlu-iq-ydxmc/jaxcj-ou-ykt - [place] Level/Cues Needed (Transfer Goal 1, PT) modified independence - Time Frame (Transfer Goal 1, PT) care home goal (LTG);3 days - Progress/Outcome (Transfer Goal 1, PT) new goal -[facility] Name 11/25/241413 Gait Training Goal 1 (PT) Activity/Assistive Device (Gait Training Goal 1, PT) gait (walking locomotion);assistive device use- [place] Level (Gait Training Goal 1, PT) modified independence - Distance (Gait Training Goal 1, PT) 300 ft - Time Frame (Gait Training Goal 1, PT) 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);3 days - Progress/Outcome (Gait Training Goal 1, PT) new goal -[facility] Name 11/25/241413 Stairs Goal 1 (PT) Activity/Assistive Device (Stairs Goal 1, PT) ascending stairs;descending stairs;using handrail, right - [place] Level/Cues Needed (Stairs Goal 1, PT) standby assist - Number of Stairs (Stairs Goal 1, PT) 1 - Time Frame (Stairs Goal 1, PT) 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);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 - Progress/Outcome (Stairs Goal [...] Negra Gutierrez, PT Physical Therapist Clinical Impression Row Name 11/25/24 1452 Pain Pretreatment Pain Rating 2/10 - Posttreatment Pain Rating 4/10 [facility] Pain Location hip - Pain Side/Orientation left [...] necessary - Therapy Frequency (PT) 2 times/day -LH Predicted Duration of Therapy Intervention (PT) 3 [...] Patient Position Sitting - Row Name 11/25/24 1820 11/25/24 1452 Positioning and Restraints Pre-Treatment Position sitting in chair/recliner -LH in bed -LH Post Treatment Position chair -LH chair -LH In Chair notified nsg;reclined;sitting;call light within reach;encouraged to call for assist;exit alarm on;with family/caregiver;waffle cushion;legs elevated -LH notified nsg;reclined;sitting;call light within reach;encouraged to call [...] More-6 -LH Stand (1 or More Minutes)-5 -LH Row Name 11/25/24 1050 How much help [...] (PT) - AM-PAC 6 Clicks Daily Activity (OT)-[place] Row Name 11/25/24 1414 Functional Assessment Outcome Measure Options AM-PAC 6 Clicks Basic Mobility (PT);PADD - User Anthony (r) = Recorded By, (t) = Taken By, (c) = Cosigned By Initials Name Provider Type Chrissie Zapata, OT Occupational Therapist TB Pablo Conway, RN Registered Nurse Negra Gutierrez, PT Physical Therapist Physical Therapy Education Title: PT 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 Therapies (Done) Topic: Physical Therapy (Done) Point: [...] Anthony Initials Effective Dates Name Provider Type [facility] 12/14/22 - Negra Gutierrez, PT Physical Therapist [...] Start Time 1552 - 1414 began eval [id number] - PT Received On -- 11/25/24 - PT Goal Re-Cert Due Date -- 12/05/24 - Timed Charges 92596 - Gait Training Minutes 16 - -- 45664 - PT Therapeutic Activity Minutes -- 10 - Untimed Charges PT Eval/Re-eval Minutes -- 46 - Total Minutes Timed Charges Total Minutes 16 - 10 - Untimed Charges Total Minutes -- 46 - Total Minutes 16 - 56 -LH User Anthony (r) = Recorded By, (t) = Taken By, (c) = Cosigned By Initials Name Provider Type Negra Gutierrez, PT Physical Therapist Therapy Charges for Today Code Description Service Date Service Provider Modifiers Qty [id number] HC PT THERAPEUTIC ACT EA 15 MIN 11/25/2024 Negra Gutierrez, PT GP 1 [id number] HC PT EVAL LOW COMPLEXITY 4 11/25/2024 Negra Gutierrez, PT GP 1 62874692406 HC PT THER SUPP EA 15 MIN 11/25/2024 Negra Gutierrez, PT GP 3 [id number] HC GAIT TRAINING EA 15 MIN 11/25/2024 [...] 11/25/2024 2:32 PM EDT Continued Stay Note [facility] Patient Name: Shireen Rain Today's Date: 11/25/2024 Admit Date: 11/25/2024 Plan: home with [facility] Discharge Plan Row Name 11/25/24 1430 Plan Plan home with [facility] HH Patient/Family in Agreement with Plan yes Plan Comments Pt lives in [place]. She reports she was independent with [...] home health care Discharge Codes No documentation. Ivonne Carbajal RN * Therapy Evaluation - Negra [...] shingles 2 years ago- face and back IONE (hard of hearing) no hearing aids Hypertension [...] in place WISDOM TOOTH EXTRACTION General Information [facility] Name 11/25/24 1414 Physical Therapy Time [...] Number of Stairs, Within Home, Primary none - Row Name 11/25/24 1414 Cognition Orientation Status (Cognition) oriented x 3 -[facility] Name 11/25/24 1414 Safety Issues/Impairments Affecting Functional Mobility Safety Issues Affecting Function (Mobility) awareness of need for assistance;insight into deficits/self-awareness;safety precaution awareness;safety precautions follow-through/compliance - Impairments Affecting Function (Mobility) balance;endurance/activity tolerance;pain;strength;other (see comments) nausea and vomiting - User Anthony (r) = Recorded By, (t) = Taken By, (c) = Cosigned By Initials Name Provider Type Negra Gutierrez, PT Physical Therapist Mobility [facility] Name 11/25/24 1414 Bed Mobility Bed Mobility supine-sit;sit-supine - Supine-Sit [place] (Bed Mobility) contact guard;verbal cues - Sit-Supine [place] (Bed Mobility) minimum assist (75% patient effort);verbal cues - Assistive Device (Bed Mobility) bed rails;head of bed elevated - Comment, (Bed Mobility) VCs for hand placement and sequencing. Requires increased time and effort to complete. During 1st attempt at mobilization, pt became nauseous and began vomiting, causing return to supine. BP stable. PT returned later to initiate further mobility -[facility] Name 11/25/24 141 Transfers Comment, (Transfers) VCs for hand placement and sequencing w/ FWW. Cues to step out LLE for comfort-[facility] [facility] Name 11/25/24 141 Sit-Stand Transfer Sit-Stand [place] (Transfers) contact guard;2 person assist;verbal cues [facility] Assistive Device (Sit-Stand Transfers) walker, front-wheeled -[facility] Name 11/25/24 14111/25/24 1258 Gait/Stairs (Locomotion) [place] Level (Gait) contact guard;2 person assist;verbal cues - -- Assistive Device (Gait) walker, front-wheeled - -- Patient was able to Ambulate yes PT returned for ambulation - no, other medical factors prevent ambulation - Reason Patient was unable to Ambulate -- Nausea/Vomiting - Distance in Feet (Gait) 100 -LH -- Deviations/Abnormal Patterns (Gait) left sided deviations;gilles decreased;gait speed decreased;weight shifting decreased;stride length decreased - -- Bilateral Gait Deviations forward flexed posture - -- [place] Level (Stairs) unable to assess - -- Comment, (Gait/Stairs) Pt demo step through gait pattern w/ decreased gilles and decreased weight acceptance through LLE. VCs for upright posture, AD management, increased step length, and increasedWB through LLE. No LOB or knee buckling. Pt became nauseous and began vomiting, requiring chair to be brought up and return to room. Further mobility deferred - -- [facility] 11/25/241413 Mobility Extremity Weight-bearing Status left lower extremity - Left Lower Extremity (Weight-bearing Status) weight-bearing as tolerated (WBAT) - User Anthony (r) = Recorded By, (t) = Taken By, (c) = Cosigned By Initials Name Provider Type Negra Gutierrez PT Physical Therapist Obj/Interventions [facility] 11/25/241413 Range of Motion Comprehensive General Range of Motion bilateral lower extremity ROM WFL -[facility] 11/25/241413 Strength Comprehensive (MMT) Comment, General Manual Muscle Testing (MMT) Assessment Pt able to perform B ankle DF/PF, heel slide, and quad set -[facility] 11/25/241413 Motor Skills Therapeutic Exercise hip;knee;ankle -[facility] 11/25/241413 Hip (Therapeutic Exercise) Hip (Therapeutic Exercise) isometric exercises;strengthening exercise - Hip Isometrics (Therapeutic Exercise) bilateral;gluteal sets;3 repetitions - Hip Strengthening (Therapeutic Exercise) left;heel slides;3 repetitions -[facility] 11/25/241413 Knee (Therapeutic Exercise) Knee (Therapeutic Exercise) isometric exercises - Knee Isometrics (Therapeutic Exercise) bilateral;quad sets;3 repetitions -[facility] 11/25/241413 Ankle (Therapeutic Exercise) Ankle (Therapeutic Exercise) AROM (active range of motion) - Ankle AROM (Therapeutic Exercise) bilateral;dorsiflexion;plantarflexion;5 repetitions -[facility] 11/25/241413 Balance Balance Assessment sitting static balance;sitting [...] Comment, Balance No LOB or knee buckling -[facility] Name 11/25/241413 Sensory Assessment (Somatosensory) Sensory Assessment (Somatosensory) LE sensation intact - User Anthony (r) = Recorded By, (t) = Taken By, (c) = Cosigned By Initials Name Provider Type Negra Gutierrez, PT Physical Therapist Goals/Plan [facility] Name 11/25/241413 Bed Mobility Goal 1 (PT) Activity/Assistive Device (Bed Mobility Goal 1, PT) bed mobility activities, all - [place] Level/Cues Needed (Bed Mobility Goal 1, PT) supervision required - Time Frame (Bed Mobility Goal 1, PT) short term goal (STG);2 days - Progress/Outcomes (Bed Mobility Goal 1, PT) new goal -[facility] Name 11/25/241413 Transfer Goal 1 (PT) Activity/Assistive Device (Transfer Goal 1, PT) [id number] - [place] Level/Cues Needed (Transfer Goal 1, PT) modified independence - Time Frame (Transfer Goal 1, PT) 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);3 days - Progress/Outcome (Transfer Goal 1, PT) new goal -[facility] Name 11/25/241413 Gait Training Goal 1 (PT) Activity/Assistive Device (Gait Training Goal 1, PT) gait (walking locomotion);assistive device use- [place] Level (Gait Training Goal 1, PT) modified independence - Distance (Gait Training Goal 1, PT) 300 ft - Time Frame (Gait Training Goal 1, PT) 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);3 days - Progress/Outcome (Gait Training Goal 1, PT) new goal -[facility] Name 11/25/241413 Stairs Goal 1 (PT) Activity/Assistive Device (Stairs Goal 1, PT) ascending stairs;descending stairs;using handrail, right - [place] Level/Cues Needed (Stairs Goal 1, PT) standby assist - Number of Stairs (Stairs Goal 1, PT) 1 - Time Frame (Stairs Goal 1, PT) 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);3 days - Progress/Outcome (Stairs Goal 1, PT) new goal -[facility] Name 11/25/241413 Therapy Assessment/Plan (PT) Planned Therapy Interventions (PT) balance training;bed mobility training;gait training;home exercise program;neuromuscular re-education;patient/family education;postural re-education;ROM (range of motion);motor coordination training;strengthening;stretching;stair training;transfer training [facility] User Anthony (r) = Recorded By, (t) = Taken By, (c) = Cosigned By Initials Name Provider Type Negra Gutierrez, PT Physical Therapist Clinical Impression [facility] Name 11/25/24 145 Pain Pretreatment Pain Rating 2/10 [facility] Posttreatment Pain Rating 4/10 [facility] Pain Location hip - Pain Side/Orientation left - Pain Management Interventions activity modification encouraged;exercise or physical activity utilized;positioning techniques utilized;premedicated for activity;cold applied;nursing notified - Response to Pain Interventions activity participation with tolerable pain -[facility] Name 11/25/24 145 Plan of Care Review [...] w/ assist and HHPT once medically appropriate. -[facility] Name 11/25/24 145 Therapy Assessment/Plan (PT) Patient/Family Therapy Goals Statement (PT) to go home - Rehab Potential (PT) good - Criteria for Skilled Interventions Met (PT) yes;meets criteria;skilled treatment is necessary [facility] Therapy Frequency (PT) 2 times/day [facility] Predicted Duration of Therapy Intervention (PT) 3 days -[facility] Name 11/25/24 1452 Vital Signs Pre Systolic BP Rehab 171 -LH Pre Treatment Diastolic BP 74 -LH Post Systolic BP Rehab 176 -LH Post Treatment Diastolic BP 80 -LH Pre SpO2 (%) 97 -LH O2 Delivery Pre Treatment room air -LH Post SpO2 (%) 97 -LH O2 Delivery Post Treatment room air - Pre Patient Position Supine -LH Post Patient Position Sitting -[facility] Name 11/25/24 1452 Positioning and Restraints Pre-Treatment [...] Cosigned By Initials Name Provider Type Pablo Conway, RN Registered Nurse Negra Gutierrez PT Physical Therapist Physical Therapy Education Title: PT 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 (Done) Topic: Physical Therapy (Done) Point: Mobility training (Done) Learning Progress Summary Patient Acceptance, E, VU,NR by at 11/25/2024 4637 Other Acceptance, E, VU,NR by at 11/25/2024 1457 Point: Home exercise program (Done) Learning Progress [...] low complexity PT Charges Row Name 11/25/24 1458 Time Calculation Start Time 1414 began eval [id number] - PT Received On 11/25/24 [facility] PT Goal Re-Cert Due Date 12/05/24 - Timed Charges 56083 - PT Therapeutic Activity Minutes 10 -LH [...] Description Service Date Service Provider Modifiers Qty 81180670939 HC PT THERAPEUTIC ACT EA 15 MIN 11/25/2024 Negra Gutierrez, PT GP 1 98592728625 HC PT EVAL LOW COMPLEXITY 4 11/25/2024 Negra Gutierrez, PT GP 1 [id number] HC PT THER SUPP EA 15 MIN [...] Description 12/12/2024 11:10 AM EDT Office Visit [facility] [address] [facility] [address] [place] [address] Nelly Rosa PA-C [address] [place] [address] [address] [place] [address] documented as of this encounter Procedures Procedure Name Priority Date/Time Associated Diagnosis Comments XR HIP W OR WO PELVIS 2-3 VIEW LEFT STAT 11/25/2024 10:11 AM EDT FL C ARM DURING SURGERY Routine 11/25/2024 9:01 AM EDT PA ARTHRP ACETBLR/PROX FEM PROSTC AGRFT/ALGRFT 11/25/2024 7:13 [...] MD 11/25/2024 10:31 AM EDT Workstation ID: [id number] Narrative 11/25/2024 10:31 AM EDT XR HIP [...] MD 11/25/2024 10:31 AM EDT Workstation ID: [id number] Raymundo Gil MD IMG DIAGNOSTIC IMAGING ORDERAB LES Final Result * FL C Arm During Surgery (11/25/2024 9:01 AM EDT) Narrative SYSTEMGENERATED, DOCUMENTATION - 11/25/2024 9:09 AM EDT This procedure was auto-finalized with no dictation required. Raymundo Gil MD IMG FLUOROSCOPY ORDERABLES Fin al Result * Potassium (11/25/2024 7:01 AM EDT) Potassium 4.0 3.5 - 5.2 mmol/L 11/25/2024 7:30 AM EDT [facility] Blood Line / Unknown 11/25/2024 7: 01 AM EDT 11/25/2024 7:01 AM EDT Sarina Vernon DO LAB BLOOD ORDERABLES Final Res ult [facility]
[address] [place] [address], documented in this encounter Visit Diagnoses Diagnosis Primary osteoarthritis of left hip- Primary Primary osteoarthritis of left hip Status post total hip replacement, left Degenerative arthritis of hip Primary localized osteoarthrosis, pelvic region and thigh Status post total hip replacement, left Primary osteoarthritis of left hip documented in this encounter Admitting Diagnoses Diagnosis [...] day, May switch to NS IV at KVO if renal / if indicated Restarted 11/25/2024 [...] Given 11/25/2024 2:46 PM EDT 5 mg ropivacaine (NAROPIN) 0.5 % injection As Needed, Starting on Sun11/25/24 at 0800 Given 11/25/2024 8:00 AM EDT 30 mL Hip Left sodium chloride (NS) irrigation solution As Needed, Starting on Sun11/25/24 at 0800 Given 11/25/2024 8:00 AM EDT 3,000 mL Hip Left sodium chloride 0.9 % bolus 500 mL [...] 11:12 AM EDT 120 mL/hr 120 mL/hr sterile water irrigation solution As Needed, Starting on Sun11/25/24 at 0805 Given 11/25/2024 8:05 AM EDT 1,000 mL documented in this encounter Active and Recently [...] er: Xiao Lugo RN - Comment: DARREL PT) meloxicam (MOBIC) tablet 15 mg 15 [...] 1042 [id number] (Canceled Entry - Provider: Pablo Conway, RN - Comment: infusing) tranexamic acid 1000 mg in 100 mL 0.7% NaCl infusion (premix) (COMPLETED) 1,000 mg, Intravenous, Administer over 30 Minutes, Once, On Sun11/25/24 at 0555, For 1 dose, Give prior [...] day, May switch to NS IV at KVO if renal / if indicated 0659 (New [...] at 0805 0805 (Given - Provid er: Raymunod Gil MD - Comment: for fire safety/insts) [...] ineffective. documented in this encounter Care Teams Hydro Sprayer Operator Relationship Specialty Start Date End Date Jay Vernon MD [address] [place] [address] PCP - General Family Medicine 05/14/19 documented as of this encounter
--- OUTSIDE RECORDS SUMMARY | 2024-11-25 07:27 | XMS_ITS | Encounter Summary ---
Author Organization [facility] Address [address] [place] [address] Care Team Providers Care Tool Machine Setup Operator Name Role Phone Jay Vernon MD Primary Care Provider [phone] Reason for Visit * Auth/Cert Specialty Diagnoses / Procedures Referred By Contac t Referred To Contact Diagnoses Primary osteoarthritis of left hip Primary osteoarthritis of left hip [M16.12] Procedures VT ARTHRP ACETBLR/PROX FEM PROSTC AGRFT/ALGRFT Left total hip arthroplasty Referral ID Status Reason Start Date Expiration Date Visits Re quested Visits Authorized [id number] 1 1 Encounter Details Date Type Department Care Team (Late st Contact Info) Description 11/25/2024 7:27 AM EDT Anesthesia [place] [facility] [place] [place] [address] [place] [phone] Sarina Vernon DO [address] [place] [address] Anesthesia Record Procedure Summary Procedure Name Responsible Anesthesiologist Anesthesia Start Time Anesthesia Stop Time TOTAL HIP ARTHROPLASTY ANTERIOR MODIFIED (Left: Hip) Sarina Vernon DO 11/25/24 0727 11/25/24 0947 Events Date Time Event Comment 11/25/2024 0637 0646 AN Equip Check 0646 An Start Data 0727 An Start The patient was reevaluated immediately before moderate or deep sedation use and before anesthesia induction. 0732 Spinal Placed 0732 Quick Note Music therapy i nitiated with noise canceling headphones 0741 Quick Note NIBP cuff place d on RUE due to lack of result from other cuff 0940 an stop data 0947 Handoff to RN The following has been completed: 1. Identification of Patient, ramsey family member(s) or patient surrogate 2. Identification of the responsible Practitioner (primary service) 3. Discussion of the pertinent/attainable medical history 4. Discussion of the surgical/procedure course (procedure, reason for surgery, procedure performed) 5. Intraoperative anesthetic management and issue/concerns to include things such as airway, hemodynamics, narcotic, sedation level and paralytic management and intravenous fluids/blood products and urine output during the procedure 6. Expectations/Plans for the early post-procedure period to include things such as anticipated course (anticipatory guidance), complications, need for laboratory or ECG and medication administration 7. Opportunity for questions and acknowledgment of understanding of report from the receiving PACU/ICU team 0947 An Stop Meds Name Total propofol 10 MG/ML 60 mg lidocaine PF 1% 1 % 50 mg ondansetron 2 mg/mL 4 mg dexAMETHasone 4 MG/ML 8 mg propofol (DIPRIVAN) infusion 10 mg/mL 10 0 mL 636.5 mg ceFAZolin 2000 mg IVPB in 100 mL NS (MBP ) 2 g tranexamic acid 1000 mg in 100 mL 0.7% N aCl infusion (premix) 1,000 mg tranexamic acid 1000 mg in 100 mL 0.7% N aCl infusion (premix) 1,000 mg Phenylephrine HCl-NaCl 1000-0.9 MCG/10ML -% 900 mcg Mepivacaine HCl (PF) (CARBOCAINE) 1.5 % injection 4 mL ePHEDrine Sulfate (Pressors) 50 MG/ML 50 mg lactated ringers infusion 750 mL * Agents Name O2 N2O Air Sevoflurane Inspired Sevoflurane * Blood No blood administrations on file. Lines, Drains, and Airways Type Details Placement Removal Peripheral IV Placement Date: 05/20; Placement Time: 658; Catheter Size: 18 G; Orientation: Right; Location: Antecubital; Site Prep: Chlorhexidine; Local Anes: Injectable; Technique: Anatomical landmarks; Inserted by: JENNIFER ALLEN; Insertion Attempts: 1; Patient Tolerance: Tolerated well 11/25/24658 by Xiao Lugo RN Wound 11/25/24; 0913; Left ; anterior; hip; Surgical; Closed Surgi; Exofin, 4x4, tape 11/25/24 09 by Reagan Duran RN documented in this encounter Social History Tobacco Use Types Packs/Day Years [...] or training? Not on file Preferred Language Indonesian 11/11/2024 Comments No Sex and Gender Information Value Date Recorded Sex Assigned at Not on file Legal Sex Female 11:34 AM EST Gender Identity Not on file Sexual Orientation Not on file documented as of this encounter Functional Status * Question Answer Date of Assessment Author 1. Wish to be (Past 1 Month) No 11/25/2024 6:47 AM Xiao Stevens RN 2. Non-Specific Active Suici nahid Thoughts (Past 1 Month) No 11/25/2024 6:47 AM Teresita Stevens RN * Calculated C-SSRS Risk Score (Lifetime/Recent) Answer Date of Assessment Author No Risk Indicated 11/25/2024 6:47 AM Xiao Stevens RN * [place] Suicide Severity Rating Scale (Screener/Recent Self-Report) Question Answer Date of Assessment Author 6. Suicidal Behavior (Lifetime) No 6:47 AM EDT Xiao Lugo RN documented as of this encounter OR Notes * Anesthesia Postprocedure Evaluation - Cortez Campuzano CRNA - 11/25/2024 9:47 AM EDT Patient: Shireen Rain Procedure Summary Date: 11/25/24 Room / Location: [facility] [address] [place] [address] [facility] Anesthesia Start: 726 Anesthesia Stop: 946 Procedure: Left total hip arthroplasty (Left: Hip) Diagnosis: Primary osteoarthritis of left hip (Primary osteoarthritis of left hip [M16.12]) Surgeons: Raymundo Gil MD Provider: Sarina Vernon DO Anesthesia Type: spinal ASA Status: 2 Anesthesia Type: spinal Vitals Vitals Value Taken Time BP Temp Pulse 68 11/25/24 09:47 Resp SpO2 98 % 11/25/24 09:47 Vitals shown include unfiled device data. Post Anesthesia Care and Evaluation Patient location during evaluation: PACU Patient participation: complete - patient participated Level of consciousness: awake and alert Pain management: adequate Airway patency: patent Anesthetic complications: No anesthetic complications PONV Status: none Cardiovascular status: hemodynamically stable and acceptable Respiratory status: nonlabored ventilation, acceptable and nasal cannula Hydration status: acceptable * Anesthesia Procedure Notes - Cortez Campuzano CRNA - 11/25/2024 6:47 AM EDT Associated Order(s): Spinal Block Spinal Block Patient reassessed immediately prior to procedure Patient location during procedure: OR Start Time: 11/25/2024 7:31 AM Stop Time: 11/25/2024 7:32 AM Indication:at surgeon's request Performed By ZEINA/CAA: Cortez Campuzano CRNA Preanesthetic Checklist Completed: patient identified, IV checked, site marked, risks and benefits discussed, surgical consent, monitors and equipment checked, pre-op evaluation and timeout performed Spinal Block Prep: Patient Position:sitting Hotel Valet Attendant:cap, gloves, sterile barriers and mask Prep:Chloraprep Patient Monitoring:blood pressure monitoring, continuous pulse oximetry and EKG Spinal Block Procedure Approach:midline Guidance:landmark technique and palpation technique Location:L4-L5 Needle Type:Quincke Needle Gauge:22 G Placement of Spinal needle event:cerebrospinal fluid aspirated Paresthesia: no Fluid Appearance:clear Medications: Mepivacaine HCl (PF) (CARBOCAINE) 1.5 % injection - Injection 4 mL - 11/25/2024 7:32:00 AM Post Assessment Patient Tolerance:patient tolerated the procedure well with no apparent complications Complications no Additional Notes Procedure: Pt assisted to sitting position, with legs in position of comfort over the side of the bed. Pt. instructed in optimal spine presentation, the spine was prepped/ Draped and the skin at insertion site was anesthetized with 1% Lidocaine 2 ml. The spinal needle was then advanced until CSF flow was obtained and LA was injected: * Anesthesia Preprocedure Evaluation - Sarina Vernon DO - 11/21/2024 5:40 PM EDT Anesthesia Evaluation Patient summary reviewed and Nursing notes reviewed no history of anesthetic complications: NPO Solid Status: > 8 hours NPO Liquid Status: > 2 hours Airway Mallampati: I TM distance: >3 FB Neck ROM: full No difficulty expected Dental (+) partials Pulmonary - normal exam (+) a smoker Former, (-) COPD, sleep apnea Cardiovascular - normal exam Exercise tolerance: good (4-7 METS) ECG reviewed (+) hypertension (-) dysrhythmias, angina, CHF, cardiac stents Neuro/Psych (+) headaches, psychiatric history GI/Hepatic/Renal/Endo (+) GERD well controlled (-) liver disease, no renal disease, diabetes, no thyroid disorder Musculoskeletal Abdominal Substance History (+) alcohol use (-) drug use 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 Plan discussed with CHANNEL PROCESS SUPERVISOR. CODE STATUS: documented in this encounter Plan of Treatment Upcoming Encounters Date Type Department Care Team (Late st Contact Info) Description 12/12/2024 11:10 AM EDT Office Visit [facility] [address] [facility] [address] [place] [address] Nelly Rosa PA-C [address] [facility] [address] [place] [address] documented as of this encounter Procedures Procedure Name Priority Date/Time Associated Diagnosis Comments SPINAL Routine 11/25/2024 7:32 AM EDT documented in this encounter Results * [facility] AN SPINAL TRAY (11/25/2024 7:32 AM EDT) Narrative Cortez Campuzano CRNA - 11/25/2024 7:32 AM EDT Cortez Campuzano CRNA 11/25/2024 10:28 AM Spinal Block Patient reassessed immediately prior to procedure Patient location during procedure: OR Start Time: 11/25/2024 7:31 AM Stop Time: 11/25/2024 7:32 AM Indication:at surgeon's request Performed By ZEINA/CAA: Cortez Campuzano CRNA Preanesthetic Checklist Completed: patient identified, IV checked, site marked, risks and benefits discussed, surgical consent, monitors and equipment checked, pre-op evaluation and timeout performed Spinal Block Prep: Patient Position:sitting Hotel Valet Attendant:cap, gloves, sterile barriers and mask Prep:Chloraprep Patient Monitoring:blood pressure monitoring, continuous pulse oximetry and EKG Spinal Block Procedure Approach:midline Guidance:landmark technique and palpation technique Location:L4-L5 Needle Type:Quincke Needle Gauge:22 G Placement of Spinal needle event:cerebrospinal fluid aspirated Paresthesia: no Fluid Appearance:clear Medications: Mepivacaine HCl (PF) (CARBOCAINE) 1.5 % injection - Injection 4 mL - 11/25/2024 7:32:00 AM Post Assessment Patient Tolerance:patient tolerated the procedure well with no apparent complications Complications no Additional Notes Procedure: Pt assisted to sitting position, with legs in position of comfort over the side of the bed. Pt. instructed in optimal spine presentation, the spine was prepped/ Draped and the skin at insertion site was anesthetized with 1% Lidocaine 2 ml. The spinal needle was then advanced until CSF flow was obtained and LA was injected: us Sarina Vernon DO ANESTHESIA ORDERABLES Edited R esult - Final documented in this encounter Visit Diagnoses Not on filedocumented in this encounter Administered Medications Inactive Administered Medications - up to 3 most recent administrations Medication Order MAR Action Action Date Dose Rate Site ceFAZolin 2000 mg IVPB in 100 mL NS (MBP) 2 g, Intravenous, Administer over 30 Minutes, Once, On Sun11/25/24 at 0555, For 1 dose, Administer Within 1 Hour of Surgical Incision. Redose 4 Hours From Pre-Op Dose if Procedure Ongoing or Blood Loss Greater Than 1.5 L Caution: Look alike/sound alike drug alert, Indications: Surgical ProphylaxisIndications:Surgical Prophylaxis New Bag 11/25/2024 7:31 AM EDT 2 g dexAMETHasone (DECADRON) injection Intravenous, As Needed, Starting on Sun11/25/24 at 0731 Given 11/25/2024 7:31 AM EDT 8 mg ePHEDrine Sulfate (Pressors) Intravenous, As Needed, Starting on Sun11/25/24 at 0749 Given 11/25/2024 8:30 AM EDT 5 mg Given 11/25/2024 8:23 AM EDT 5 mg Given 11/25/2024 8:15 AM EDT 5 mg lactated ringers infusion 9 mL/hr, Intravenous, Continuous, Starting on Sun11/26/24 at 0600, For 1 day, May switch to NS IV at KVO if renal / if indicated Restarted 11/25/2024 7:31 AM EDT Currently Infusing 11/25/2024 7:27 AM EDT 9 mL/ hr New Bag 11/25/2024 6:59 AM EDT 9 mL/hr 9 mL/hr lidocaine PF 1% (XYLOCAINE) injection Intravenous, As Needed, Starting on Sun11/25/24 at 0731 Given 11/25/2024 7:31 AM EDT 50 mg Mepivacaine HCl (PF) (CARBOCAINE) 1.5 % injection Injection, One-Time Injection, Starting on Sun11/25/24 at 0732, For 1 dose Given 11/25/2024 7:32 AM EDT 4 mL ondansetron (ZOFRAN) injection Intravenous, As Needed, Starting on Sun11/25/24 at 0731 Given 11/25/2024 7:31 AM EDT 4 mg Phenylephrine HCl-NaCl 100 mcg/ml injection Intravenous, As Needed, Starting on Sun11/25/24 at 0742 Given 11/25/2024 9:03 AM EDT 100 mcg Given 11/25/2024 8:50 AM EDT 100 mcg Given 11/25/2024 8:39 AM EDT 100 mcg propofol (DIPRIVAN) infusion 10 mg/mL 100 mL Intravenous, Continuous PRN, Starting on Sun11/25/24 at 0731 Rate/Dose Change 11/25/2024 9:03 AM EDT 77 mcg/kg/min 34.142 mL/hr New Bag 11/25/2024 7:31 AM EDT 66 mcg/kg/min 29.264 mL/ hr propofol (DIPRIVAN) injection Intravenous, As Needed, Starting on Sun11/25/24 at 0731 Given 11/25/2024 9:03 AM EDT 20 mg Given 11/25/2024 7:31 AM EDT 40 mg tranexamic acid 1000 mg in 100 mL 0.7% NaCl infusion (premix) 1,000 mg, Intravenous, Administer over 30 Minutes, Once, On Sun11/25/24 at 0555, For 1 dose, Give prior to incision.Indications:Primary osteoarthritis of left hip New Bag 11/25/2024 7:31 AM EDT 1,000 mg tranexamic acid 1000 mg in 100 mL 0.7% NaCl infusion (premix) 1,000 mg, Intravenous, Administer over 30 Minutes, Once, On Sun11/25/24 at 0555, For 1 dose, Hip Replacement: Give at start of incision closure. Knee Replacement: Give 5-10 minutes before tourniquet release.Indications:Primary osteoarthritis of left hip New Bag 11/25/2024 9:02 AM EDT 1,000 mg documented in this encounter Care Teams Tool Machine Setup Operator Relationship Specialty Start Date End Date Jay Vernon MD [address] [place] [address] PCP - General Family Medicine 05/14/19 documented as of this encounter
--- OUTSIDE RECORDS SUMMARY | 2024-12-04 20:00 | XMS_ITS | Clinical Summary ---
Author Organization Unknown Care Team Providers Care [facility] Supervisor Name Role Phone BEN LALA, ALICIA Unavailable Unavailable ONEIDA PT, SILAS Unavailable Unavailable JENNIFER GUILLEN, RON Unavailable Unavailable Payers Payer Name Policy Type Policy Number Effective Date Expira tion Date MEDICARE.MARIANNARADHA.[facility] [id number] [place].[facility] 1SUSANNA.NOHELIAAUTH [id number] Problems Condition Name Condition Details Condition Category Status Onset Date Resolution Date Last Treatment Date Treating Clinician Comments AFTERCARE FOLLOWING JOINT REPLACEMENT SURGERY Active 11-12 00:00: 00 PRESENCE OF LEFT ARTIFICIAL HIP JOINT Active 11-12 00:00: 00 ESSENTIAL (PRIMARY) HYPERTENSION Active 11-28 00:00: 00 MIGRAINE, UNSP, NOT INTRACTABLE, WITHOUT STATUS MIGRAINOSUS Active 11-28 00:00: 00 GASTRO-ESOPH AGEAL REFLUX DISEASE WITHOUT ESOPHAGITIS Active 11-28 00:00: 00 PERSONAL HISTORY OF URINARY (TRACT) INFECTIONS Active 11-28 00:00: 00 Allergies, Adverse Reactions, Alerts Allergy Name Allergy Type Status Severity Reaction(s) Onset Date Inactive Date Treating Clinician Comments NO KNOWN ALLERGIES Propensity to adverse reactions Active 11-28 10:32: 53 Medications Ordered Medication Name Filled Medication Name Start Date Stop Date Current Medication? Ordering Clinician Indication Dosage Frequency Signature (SIG) Comments Components acetaminoph en 500 mg tablet 11-28 00:00: 00 Yes [id number] PAIN 2 tablet EVERY 8 HOURS 2 tablet EVERY 8 HOURS (route: oral) Med Classific ation: Analgesic , Anti-infl ammatory or Antipyret ic aspirin 81 mg tablet 11-28 00:00: 00 Yes [id number] DVT PROPHYLAXIS 1 tablet 2 TIMES DAILY 1 tablet 2 TIMES DAILY (route: oral) Med Classific ation: Hematolog ical Agents atorvastati n 10 mg tablet 11-28 00:00: 00 Yes [id number] CHOLESTEROL 1 tablet BEDTIME 1 tablet BEDTIME (route: oral) Med Classific ation: Cardiovas cular Therapy Agents Celebrex 200 mg capsule 11-28 00:00: 00 Yes [id number] PAIN 1 capsule 2 TIMES DAILY 1 capsule 2 TIMES DAILY (route: oral) Med Classific ation: Analgesic , Anti-infl ammatory or Antipyret ic diclofenac sodium 75 mg tablet,felice yed release 11-28 00:00: 00 Yes [id number] PAIN 1 tablet 2 TIMES DAILY 1 tablet 2 TIMES DAILY (route: oral) Med Classific ation: Analgesic , Anti-infl ammatory or Antipyret ic dicyclomine 10 mg capsule 11-28 00:00: 00 Yes [id number] DIARRHEA 1 capsule 4 TIMES DAILY 1 capsule 4 TIMES DAILY (route: oral) Med Classific ation: Gastroint estinal Therapy Agents docusate sodium 100 mg capsule 11-28 00:00: 00 Yes [id number] STOOL SOFTENER 1 capsule 2 TIMES DAILY 1 capsule 2 TIMES DAILY (route: oral) Med Classific ation: Gastroint estinal Therapy Agents lisinopril 30 mg tablet 11-28 00:00: 00 Yes [id number] HTN 1 tablet DAILY 1 tablet DAILY (route: oral) Med Classific ation: Cardiovas cular Therapy Agents oxycodone 5 mg tablet 11-28 00:00: 00 Yes [id number] PAIN 1 tablet EVERY 4 HOURS 1 tablet EVERY 4 HOURS (route: oral) Med Classific ation: Analgesic , Anti-infl ammatory or Antipyret ic prochlorper azine maleate 5 mg tablet 11-28 00:00: 00 Yes [id number] NAUSEA 1 tablet EVERY 6 HOURS 1 tablet EVERY 6 HOURS (route: oral) Med Classific ation: Gastroint estinal Therapy Agents Vital Signs Vital Name Observation Time Observation Value Commen ts Temperature 2024-12-05 12:54:00.000 97.6 [degF] Temperature 2024-12-03 16:34:00.000 98.6 [degF] Temperature 2024-12-01 16:32:00.000 97.6 [degF] BMI (%) 2024-11-28 10:51:00.000 30 kg/m2 Height 2024-11-28 10:51:00.000 62 [in_us] Pulse 2024-12-05 12:54:00.000 80 /min Pulse 2024-12-03 16:34:00.000 75 /min Pulse 2024-12-01 16:32:00.000 70 /min Pulse 2024-11-28 10:51:00.000 88 /min O2 Saturation (%) 2024-11-28 10:51:00.000 99 % Respirations 2024-12-05 12:54:00.000 16 /min Respirations 2024-12-03 16:34:00.000 18 /min Respirations 2024-12-01 16:32:00.000 18 /min Respirations 2024-11-28 10:51:00.000 18 /min Weight (lbs) 2024-11-28 10:51:00.000 165 [lb_av] Systolic Blood Pressure 2024-12-05 12:54:00.000 122 mm [Hg] Systolic Blood Pressure 2024-12-03 16:34:00.000 127 mm [Hg] Systolic Blood Pressure 2024-12-01 16:32:00.000 126 mm [Hg] Systolic Blood Pressure 2024-11-28 10:51:00.000 134 mm [Hg] Diastolic Blood Pressure 2024-12-05 12:54:00.000 72 mm [Hg] Diastolic Blood Pressure 2024-12-03 16:34:00.000 68 mm [Hg] Diastolic Blood Pressure 2024-12-01 16:32:00.000 63 mm [Hg] Diastolic Blood Pressure 2024-11-28 10:51:00.000 76 mm [Hg] Plan of Treatment Planned Activity Planned Date Details Comments Future Scheduled Test AGENCY MAY PERFORM A RESUMPTION OF CARE VISIT FOLLOWING ANY HOSPITAL ADMISSION. PT TO EVALUATE, OBSERVE / ASSESS, AND MONITOR, ROLLER STAINER TO OBSERVE AND MONITOR, PROVIDE SKILLED THERAPEUTIC INTERVENTION, ACTIVITY, EDUCATION, AND TRAINING TO ADDRESS; [code = AGENCY MAY PERFORM A RESUMPTION OF CARE VISIT FOLLOWING ANY HOSPITAL ADMISSION. PT TO EVALUATE, OBSERVE / ASSESS, AND MONITOR, ROLLER STAINER TO OBSERVE AND MONITOR, PROVIDE SKILLED THERAPEUTIC INTERVENTION, ACTIVITY, EDUCATION, AND TRAINING TO ADDRESS;] Future Scheduled Test SIT TO/FRO M STAND TRANSFERS (PT/ROLLER STAINER) [code = SIT TO/FROM STAND TRANSFERS (PT/ROLLER STAINER)] Future Scheduled Test PT/ROLLER STAINER TO PROVIDE GAIT TRAINING FOR IMPROVED MOBILITY AND /OR TO NORMALIZE GAIT PATTERN [code = PT/ROLLER STAINER TO PROVIDE GAIT TRAINING FOR IMPROVED MOBILITY AND /OR TO NORMALIZE GAIT PATTERN] Future Scheduled Test PT/ROLLER STAINER TO PROVIDE STAIR TRAINING [code = PT/ROLLER STAINER TO PROVIDE STAIR TRAINING] Future Scheduled Test NEUROMUSCU LAR RE-EDUCATION / BALANCE / POSTURAL CONTROL (PT) [code = NEUROMUSCULAR RE-EDUCATION / BALANCE / POSTURAL CONTROL (PT)] Future Scheduled Test THERAPEUTI C EXERCISES AND ESTABLISHING A HOME EXERCISE PROGRAM (PT/ROLLER STAINER) [code = THERAPEUTIC EXERCISES AND ESTABLISHING A HOME EXERCISE PROGRAM (PT/ROLLER STAINER)] Future Scheduled Test PT/ROLLER STAINER TO IDENTIFY FALL RISK FACTORS; EDUCATE THE PATIENT/CAREGIVER ON WAYS TO REDUCE FALL RISK FACTORS AND ESTABLISH HOME EXERCISE PROGRAM TO MINIMIZE FALL RISK. MAY TEACH THE PATIENT FLOOR RECOVERY WHEN CLINICALLY APPROPRIATE [code = PT/ROLLER STAINER TO IDENTIFY FALL RISK FACTORS; EDUCATE THE PATIENT/CAREGIVER ON WAYS TO REDUCE FALL RISK FACTORS AND ESTABLISH HOME EXERCISE PROGRAM TO MINIMIZE FALL RISK. MAY TEACH THE PATIENT FLOOR RECOVERY WHEN CLINICALLY APPROPRIATE] Future Scheduled Test ORTHOPEDIC SURGICAL AFTERCARE - PT/ROLLER STAINER TO MONITOR SURGICAL INCISION FOR EARLY SIGNS OF WOUND DETERIORATION AND/OR DVT. PT / ROLLER STAINER MAY TEACH PATIENT APPLICATION OF CRYOTHERAPY FOR PAIN AND/OR SWELLING [code = ORTHOPEDIC SURGICAL AFTERCARE - PT/ROLLER STAINER TO MONITOR SURGICAL INCISION FOR EARLY SIGNS OF WOUND DETERIORATION AND/OR DVT. PT / ROLLER STAINER MAY TEACH PATIENT APPLICATION OF CRYOTHERAPY FOR PAIN AND/OR SWELLING] Future Scheduled Test PT / ROLLER STAINER T O EDUCATE ON HIP REPLACEMENT SELF-MANAGEMENT [code = PT / ROLLER STAINER TO EDUCATE ON HIP REPLACEMENT SELF-MANAGEMENT] Future Scheduled Test PT / ROLLER STAINER M AY EDUCATE ON PAIN MANAGEMENT CLINICALLY INDICATED, INCLUDING NON-PHARMACOLOGICAL PAIN REDUCTION TECHNIQUES [code = PT / ROLLER STAINER MAY EDUCATE ON PAIN MANAGEMENT CLINICALLY INDICATED, INCLUDING NON-PHARMACOLOGICAL PAIN REDUCTION TECHNIQUES] Future Scheduled Test PT / ROLLER STAINER T O INSTRUCT PATIENT/CAREGIVER ON RISK FOR HOSPITALIZATION/EMERGENCY ROOM VISITS, TEACH SIGNS AND SYMPTOMS THAT PUT PATIENT AT RISK, WHEN TO NOTIFY NURSE/PHYSICIAN OF COMPLICATIONS/DECLINE, AND WHEN TO CALL 911. [code = PT / ROLLER STAINER TO INSTRUCT PATIENT/CAREGIVER ON RISK FOR HOSPITALIZATION/EMERGENCY ROOM VISITS, TEACH SIGNS AND SYMPTOMS THAT PUT PATIENT AT RISK, WHEN TO NOTIFY NURSE/PHYSICIAN OF COMPLICATIONS/DECLINE, AND WHEN TO CALL 911.] Future Scheduled Test PT / ROLLER STAINER T O OBSERVE WOUND/INCISION AND/OR INTACT DRESSING ON L HIP AND REPORT EARLY SIGNS AND SYMPTOMS OF WOUND DETERIORATION, COMPLICATIONS, OR INFECTION TO PHYSICIAN AND/OR THE RN CLINICAL CERTIFIED ALCOHOL COUNSELOR FOR PHYSICIAN NOTIFICATION. [code = PT / ROLLER STAINER TO OBSERVE WOUND/INCISION AND/OR INTACT DRESSING ON L HIP AND REPORT EARLY SIGNS AND SYMPTOMS OF WOUND DETERIORATION, COMPLICATIONS, OR INFECTION TO PHYSICIAN AND/OR THE RN CLINICAL CERTIFIED ALCOHOL COUNSELOR FOR PHYSICIAN NOTIFICATION.] Goal 2024-12-05 Patient Goal - GO TO OUTPATI ENT Goal Provider Goal - PT NOTIFIED DR MILES OFFICE OF PT POC Goal Provider Goal - PT STG: PATIENT WILL DEMONSTRATE IMPROVED TRANSFERS FROM CGA TO SBA WITHIN 4 WEEKS. PT LTG: PATIENT WILL DEMONSTRATE IMPROVED TRANSFERS FROM CGA TO IND WITHIN 8 WEEKS. Goal Provider Goal - PT STG: PATIENT WILL DEMONSTRATE IMPROVED GAIT FROM CGA TO SBA WITHIN 4 WEEKS. PT LTG: PATIENT WILL DEMONSTRATE IMPROVED GAIT FROM CGA TO IND WITHIN 8 WEEKS. Goal Provider Goal - PT LTG: PATIENT WILL DEMONSTRATE IMPROVED ABILITY TO SAFELY NEGOTIATE STAIRS FROM CGA TO IND WITHIN 8WEEKS Goal Provider Goal - PT LTG: PATIENT WILL DEMONSTRATE REDUCED FALL RISK EVIDENCED BY TUG TEST (CUT SCORE >11 SECONDS INDICATES INCREASED FALL RISK) IMPROVING FROM 36 SEC TO 11 SEC WITHIN 8 WEEKS. Goal Provider Goal - PT LTG: PATIENT WILL DEMONSTRATE IMPROVED FUNCTIONAL STRENGTH EVIDENCED BY FIVE TIMES SIT TO STAND TEST (CUT SCORE >12 SECONDS INDICATES AN INCREASED FALL RISK) IMPROVING FROM UNABLE TO 20 SEC WITHIN 8WEEKS PT LTG: PATIENT WILL DEMONSTRATE INCREASED STRENGTH OF LLE TO 4+/5 WITHIN 8WEEKS Goal Provider Goal - PT LTG: PATIENT/CAREGIVER WILL DEMONSTRATE ADHERENCE TO FALL REDUCTION SELF-MANAGEMENT AND REDUCING FALL RISK FACTORS TO MINIMIZE FALL RISK BY END OF EPISODE. PT LTG: PATIENT WILL BE INDEPENDENT WITH IMPLEMENTATION OF HEP WITHIN 8WEEKS PT LTG: CAREGIVER WILL BE INDEPENDENT ASSISTING PATIENT TO COMPLETE HEP WITHIN 8WEEKS Goal Provider Goal - PT GOAL: PATIENT WILL DEMONSTRATE NORMAL HEALING FOLLOWING SURGERY WITH NO COMPLICATIONS BY END OF EPISODE. Goal Provider Goal - PT GOAL: PATIENT WILL DEMONSTRATE OPTIMAL OUTCOMES INCLUDING INCREASED ROM AND STRENGTH WITH NO COMPLICATIONS FOLLOWING HIP SURGERY BY END OF EPISODE. Goal Provider Goal - PT GOAL: PATIENT WILL DEMONSTRATE UNDERSTANDING OF PAIN MANAGEMENT TECHNIQUES EVIDENCED BY REDUCED PAIN Goal Provider Goal - PT GOAL: PATIENT/CAREGIVER WILL VERBALIZE UNDERSTANDING OF SIGNS AND SYMPTOMS THAT PUT THE PATIENT AT RISK FOR HOSPITALIZATION /EMERGENCY ROOM VISITS, WHEN TO NOTIFY NURSE/PHYSICIAN OF COMPLICATIONS/DECLINE AND WHEN TO CALL 911. Goal Provider Goal - PT GOAL: THE PATIENT WILL NOT DEMONSTRATE ANY WOUND COMPLICATIONS DURING THE EPISODE OF CARE. Reason for Visit INDEPENDENT WITH USE OF ASSISTIVE DEVICE Encounters Start Date/Time End Date/Time Encounter Type Admission Type Attending [facility] Care Department Encounter ID Discharge Date Discharge Status Discharge Condition Discharge Reason Percent Goals Met 2024-11-28 00:00:00 2024-12-05 00:00:00 Outpatient NEW ADMISSION [facility] [id number] 2024-12-05 00:00:00 DISCHARGE TO HOME OR SELF CARE INDEPENDEN T WITH USE OF ASSISTIVE DEVICE HH - DISCHARGE TO OUTPATIENT REHAB 100.00
[2024-12-09 09:38] VITALS: BP 177/74; PULSE 90; O2SAT 96
[2024-12-09 09:50] VITALS: BP 177/84; PULSE 87; RESP 17; TEMP 36.9; O2SAT 95; BMI 29.2
--- NOTE | 2024-12-09 10:00 | CA_ITS ---
FINAL REPORT TECHNIQUE: Ultrasound images of the deep venous system were obtained from the left groin to the calf veins. CLINICAL HISTORY: EDEMA,S/P LEFT HIP SURGERY 11/25/24,PT ON ASA FINDINGS: The deep venous system is normally compressible. Normal flow is identified. IMPRESSION: No evidence of left lower extremity DVT. Reviewed, Interpreted and Dictated by Yariel Hassan MD Transcribed by Nighat Velazquez Authenticated and [facility]
[2024-12-09 10:01] VITALS: BP 142/69; O2SAT 98
--- NOTE | 2024-12-09 10:08 | ED_ITS ---
<Statement entered by Daljit Vivas MD - 12/09/24 20:56> I was consulted by the KEIRY, and we discussed the complexity of the problems being addressed. I approve the treatment and management plan for this patient's care in the emergency department, thus performing a substantive portion of the medical decision making. Daljit Vivas MD Discharge Plan Disposition Patient Disposition: Home, Self-Care Prescriptions Prescriptions: No Action lisinopril 20 mg tablet 20 mg PO DAILY furosemide 20 mg tablet 20 mg PO Q OTHER DAY atorvastatin 10 mg tablet 10 mg PO DAILY adapalene 0.3 % gel with pump topical diclofenac sodium 75 mg tablet,delayed release (DR/EC) 75 mg PO cholecalciferol (vitamin D3) 1,250 mcg (50,000 unit) capsule 1,250 mcg PO Patient Comments: TAKE 1 CAPSULE BY MOUTH WEEKLY Referrals Follow up/Referrals: Jay Vernon [Primary Care Provider, Medical] - See instructions Activity Restrictions/Add. Instructions Additional Instructions/Restrictions: You were evaluated for a blood clot today in the ER. It was negative for a DVT. Please follow-up with your PCP if any other problems or concerns. Clinical Impressions Clinical Impression: Acute hip pain Instructions Patient Instructions: Help for Hip Pain Print Language Print Language: Polish Discharge ED Provider: Daljit Vivas General Adult HPI General Chief complaint: Extremity Problem,Nontraumatic Stated complaint: Had L hip replacement 11/25/24 /swelling on L Hip Time Seen by Provider: 12/09/24 09:50 Mode of Arrival: Wheelchair Source of Information: Patient Description of Symptoms (Recalled from ER Triage Doc. by RN): pt presents to the ED with left hip swelling. pt reports that she had hip surgery done 2 weeks ago. Over the past 2 days she had noticed increased swelling to her left hip. Pt reports that she got woke from shooting pains going down her leg and noticed a knot near her incision last night. Denies chest pain and shortness of breath. pt denies nausea and vomiting. Ne recent fevers. History of Present Illness HPI narrative: 74-year-old female presents to the ED today for complaint of left hip swelling. Patient had hip surgery 2 weeks ago. She noticed that her hip was swelling 2 days ago. She says she had some shooting pain in her left hip that woke her up. She says she noticed a knot near the incision and this scared her. She said she believes this might be normal but she looked up on the Internet that it also might be a clot. So she wants to be safe and make sure that it is not a DVT. Denies chest pain, no shortness of breath or any other symptoms at this time. No nausea or vomiting. No cough, fever or chills. No other symptoms. Related Data Home Medications ?Medication ?Instructions ?Recorded ?Confirmed atorvastatin 10 mg tablet 10 mg PO DAILY Cholesterol 0 05/18/22 01/24/24 furosemide 20 mg tablet 20 mg PO Q OTHER DAY Fluid 0 05/18/22 01/24/24 lisinopril 20 mg tablet 20 mg PO DAILY High Blood Pr essure 05/18/22 01/24/24 adapalene 0.3 % topical gel with topical 01/24/2412/26 pump cholecalciferol (vitamin D3) 1,250 1,250 mcg PO 01/24/24 mcg (50,000 unit) capsule diclofenac sodium 75 mg 75 mg PO 01/24/24 01/24/24 tablet,delayed release Allergies Allergy/AdvReac Type Severity Reaction Status Date / Time No Known Allergies Allergy Verified 01/24/24 09:56 [facility] Disclaimer: The information contained in this section may have been updated after the patient was seen, as this information can be updated by other users. Medical History HTN (hypertension) Nephrolithiasis Spigelian hernia with bowel obstruction Hyperlipidemia Surgical History History of cataract surgery H/O lumpectomy right breast History of hernia repair History of lithotripsy History of colonoscopy History of axillary surgery History of laparoscopic cholecystectomy Family History Other Heart disease Social History Smoking Status: Never smoker alcohol intake: current substance use type: denies use current occupational status: retired Travel in the last 8 weeks?: None caffeine: Yes Have you lived/traveled outside US in past 30 days?: No Contact w/someone who lives/traveled outside US past 30 days?: No Exposure to someone with infectious disease in past 14 days?: No Do you have a fever (greater than 100.4 F or 38 C)?: No Have you tested positive for COVID-19?: No Exposed to someone with COVID-19 in past 14 days?: No Do you have a sore throat?: No Do you have a cough?: No Do you have any weakness?: No Do you have any diarrhea?: No Are you experiencing any unusual bleeding?: No Do you have any muscle aches/pain?: No Do you have any abdominal pain?: No Are you experiencing loss of taste or smell?: No Other Medical History Have you received the Pneumonia Vaccine: Yes ROS Obtained: Yes Systems reviewed as appropriate & no additional complaints except as documented Constitutional Constitutional: Reports as per HPI Physical Exam General General appearance: alert and in no apparent distress Head Head exam: normocephalic Eye Eye exam: Present PERRL and EOMI ENT ENT exam: Present normal oropharynx and mucous membranes moist Neck Neck exam: Present full ROM and trachea midline Respiratory Respiratory exam: Present normal lung sounds bilaterally Cardiovascular Cardiovascular exam: Present regular rate, normal rhythm, normal heart sounds, +S1 and +S2 Abdominal Exam Abdominal exam: Present soft and normal bowel sounds Extremities Exam Extremities exam: Present normal capillary refill and edema (At the left hip) Neurological Exam Neurological exam: Present alert and oriented X3 Skin Skin exam: Present warm, dry and intact Medical Decision Making Medical Records Screening: Per USPSTF and CDC recommendations, given the prevalence of disease in our region, it is our hospital?s policy to screen for HIV and viral Hepatitis for all patients aged 18 and over and those with ongoing risk factors. Alvaro Inquiry Pt receiving controlled substance: No Alvaro was queried for this patient: No Vital Signs: 12/09/24 09:38 12/09/24 09:50 12/09/24 09:50 Temperature 98.5 F 98.5 F Temperature Source Oral Oral Pulse Rate 90 87 Pulse Rate [Right] 87 Respiratory Rate 17 17 Blood Pressure 177/74 H 177/84 H Blood Pressure [Right Arm] 177/84 H Blood Pressure Mean Blood Pressure Mean [Right Arm] 115 Blood Pressure Source Automatic Cuff Blood Pressure Source [Right Arm] Automatic Cuff Blood Pressure Position Supine Blood Pressure Position [Right Arm] Supine 02 Sat by Pulse Oximetry 96 95 95 Oxygen Delivery Method Room Air Room Air 12/09/24 10:01 12/09/24 10:51 Temperature 98.1 F Temperature Source Oral Pulse Rate 75 Pulse Rate [Right] Respiratory Rate 16 Blood Pressure 142/69 H 155/67 H Blood Pressure [Right Arm] Blood Pressure Mean 103 Blood Pressure Mean [Right Arm] Blood Pressure Source Automatic Cuff Blood Pressure Source [Right Arm] Blood Pressure Position Supine Blood Pressure Position [Right Arm] 02 Sat by Pulse Oximetry 98 Oxygen Delivery Method Room Air Orders (Tests/Meds): ED MEDICATIONS Discontinued Medications Generic Name Dose Route Start Last Admin Trade Name Freq PRN Reason Stop Dose Admin Acetaminophen 1,000 mg 12/09/24 10:01 12/09/24 10:24 Acetaminophen 500mg Tab PO 12/09/24 10:02 1,000 mg ONCE ONE Administration ORDERS Category Date Time Status CA venous doppler LE LT Stat Y 12/09/24 10:00 Completed Medical Decision Narrative: patient is a 74-year-old female presenting to the emergency department for evaluation of left hip pain after having hip replacement 2 weeks ago. Patient is hemodynamically stable and nontoxic-appearing upon arrival, afebrile. Differential diagnosis includes DVT, normal surgical swelling, among others. Workup will be conducted with specific imaging. Initial inventions include analgesics. A venous Doppler was completed and the tech will be read as negative for a clot. Discussed this with patient and family. Patient will be discharged. Patient safe for discharge home. Critical Care Critical Care Time Critical Care Time: No
--- NOTE | 2024-12-09 10:15 | PC.NURSE ---
PT ASSISTED TO BEDSIDE COMMODE
--- NOTE | 2024-12-09 10:17 | PC.NURSE ---
DOPPLER AT BEDSIDE
--- NOTE | 2024-12-09 10:18 | PC.NURSE ---
WATER PROVIDED PER PT REQUEST. CALL LIGHT WITHIN REACH
--- OUTSIDE RECORDS SUMMARY | 2024-12-09 10:22 | XMS_ITS | Encounter Summary ---
Author Organization [facility] Address [address] [place] [address] Care Team Providers Care Hide Buyer Name Role Phone Jay Vernon MD Primary Care Provider [phone] Encounter Details Date Type Department Care Team (Latest Contact Info) Description 10/31/2024 Travel Social History Tobacco Use Types Packs/Day Years [...] Description 12/12/2024 11:10 AM EDT Office Visit [facility] [address] [facility] [address] [place] [id number] Nelly Rosa PA-C [address] [facility] [address] [place] [address] documented as of this encounter Visit Diagnoses Not on filedocumented in this encounter Care Teams Hide Buyer Relationship Specialty Start Date End Date Jay Vernon MD [address] [place] [address] PCP - General Family Medicine 05/14/19 documented as of this encounter
--- OUTSIDE RECORDS SUMMARY | 2024-12-09 10:22 | XMS_ITS | Encounter Summary ---
Author Organization [facility] Address [address] [place] [address] Care Team Providers Care Social Services Assistant Name Role Phone Jay Vernon MD Primary Care Provider [phone] Reason for Visit * Reason Onset Date Comments BEN - MEDICATION 11/03/2024 Encounter Details Date Type Department Care Team (Late st Contact Info) Description 11/03/2024 Telephone [facility] [address] [place] [address] Raymundo Gil MD [address] [place] [address] BEN - MEDICATION Social History Tobacco Use Types Packs/Day Years [...] on file documented as of this encounter Miscellaneous Notes * Telephone Encounter - Chrissie Adams CMA - 11/03/2024 11:04 AM EDT I called patient and let her know that the medication he sent in is for prior to surgery and that we send it to the [facility] pharmacy so that they will give her exactly the amount that she needs. I also let her know that she can pick it up the day that she goes to pre admission testing. I explained that one of Dr Gil's surgery coordinators will call her with the specifics on dates and times. She understood. She will call back with any further problems or questions. Chrissie * Telephone Encounter - Karen Lemus RegSched Rep - 11/03/2024 10:56 AM EDT Caller: Shireen Rain Relationship to patient: Self Best call back number: [phone] Patient is needing: PATIENT WAS NOT AWARE THAT DR GIL WAS SENDING ANY MEDICATION IN FOR HER. SHE ALSO DOESN'T KNOW WHAT TO DO WITH A TOPICAL - STATING ITS HER ENTIRE JOINT THAT IS EFFECTED. SHE WANTS TO SPEAK WITH A CLINICAL MEMBER IN REGARD TO THE MEDICATION THAT WAS SENT IN FOR HER SHE ALSO NEEDS [facility] [place], IF THIS ENDS UP BEING SOMETHING DR GIL TRULY WANTED HER TOHAVE. PLEASE CALL TO DISCUSS WITH PATIENT documented in this encounter Plan of Treatment Upcoming Encounters Date Type Department Care Team (Late st Contact Info) Description 12/12/2024 11:10 AM EDT Office Visit [facility] [address] [facility] [address] [place] [address] Nelly Rosa PA-C [address] [facility] [address] [place] [address] documented as of this encounter Visit Diagnoses Not on filedocumented in this encounter Care Teams Social Services Assistant Relationship Specialty Start Date End Date Jay Vernon MD [address] [place], [place] [id number] [place] [address] PCP - General Family Medicine 05/14/19 documented as of this encounter
--- OUTSIDE RECORDS SUMMARY | 2024-12-09 10:22 | XMS_ITS | Clinical Summary ---
Author Organization [facility] Address [address] [place] [address] Care Team Providers Care Bakery Decorator Name Role Phone Jay Vernon MD Primary Care Provider [phone] Allergies No known active allergies Medications atorvastatin (LIPITOR) 10 MG tablet Take 1 tablet by mouth Daily. Active letrozole (FEMARA) 2.5 MG tablet Take 1 tablet by mouth Daily. 5 Active Cholecalcifero l (Vitamin D3) 1.25 MG (95706 UT) capsule Take 1 capsule by mouth 1 (One) Time Per Week. Sunday 5 Active Turmeric (QC TUMERIC COMPLEX PO) Take 1 tablet by mouth 1 (One) Time Per Week. Sunday Active furosemide (LASIX) 20 MG tablet Take 1 tablet by mouth As Needed. Active B Complex Vitamins (vitamin b complex) capsule capsule Take 1 capsule by mouth Daily. Super b Active pilocarpine (SALAGEN) 5 MG tablet Take 1 tablet by mouth 2 (Two) Times a Week. Active Probiotic Product (PROBIOTIC DAILY PO) Take 1 tablet by mouth Daily. Active Misc Natural Products (WHITE WILLOW BARK PO) Take 1 tablet by mouth Daily. 400 mg Active lisinopril (PRINIVIL,ZEST RIL) 20 MG tablet Take 1 tablet by mouth Every Night. Active diclofenac (VOLTAREN) 75 MG EC tablet Take 1 tablet by mouth 2 (Two) Times a Day. Active celecoxib (CeleBREX) 200 MG capsule Take 1 capsule by mouth 2 (Two) Times a Day. 60 capsule 5 Active oxyCODONE (Roxicodone) 5 MG immediate release tabletIndicati ons:Status post total hip replacement, left Take 1 tablet by mouth Every 4 (Four) Hours As Needed for Moderate Pain. 30 tablet 11/25/2024 4:12 PM EDT 5 Active docusate sodium (COLACE) 100 MG capsule Take 1 capsule by mouth 2 (Two) Times a Day for 15 days. 30 capsule 11/25/2024 4:12 PM EDT 5 025 Active aspirin (ASPIR) 81 MG EC tablet Take 1 tablet by mouth 2 (Two) Times a Day. 60 tablet 11/25/2024 4:12 PM EDT 5 Active prochlorperazi ne (COMPAZINE) 5 MG tablet Take 1 tablet by mouth Every 6 (Six) Hours As Needed for Nausea or Vomiting. 12 tablet 11/25/2024 4:12 PM EDT 5 Active lisinopril (PRINIVIL,ZEST RIL) 10 MG tablet Take 1 tablet by mouth Daily. 025 Discontinu ed(*Therap y completed) Cyanocobalamin (B-12 PO) Take by mouth. 025 Discontinu ed(*Therap y completed) DICLOFENAC PO Take 15 mg by mouth Daily. 025 Discontinu ed(*Therap y completed) Chlorhexidine Gluconate 4 % solution Apply 1 Application topically to the appropriate area as directed Daily. Shower with solution as directed for 5 days prior to surgery 236 mL 11/11/2024 3:40 PM EDT 5 025 Discontinu ed(Stop Taking at Discharge) acetaminophen (TYLENOL) 500 MG tablet Take 2 tablets by mouth Every 8 (Eight) Hours for 7 days. Take every 8 hours as needed after 1 week 60 tablet 11/25/2024 4:12 PM EDT 5 025 Active Problems Problem Noted Date Diagnosed Date Status post total hip replacement, left 11/26/19 25 GERD (gastroesophageal reflux disease) 5 HTN (hypertension) 11/25/2024 Primary osteoarthritis of left hip 10/31/2024 Degenerative arthritis of hip 10/31/2024 Encounters Date Type Department Care Team Description 12/03/2024 Telephone [facility] [address] [facility] [address] [place] [address] Raymundo Gil MD 12/02/2024 Telephone [facility] [address] [facility] [address] [place] [address] Raymundo Gil MD 1 week post-op call 11/25/2024 7:27 AM EDT Anesthesia Event [facility] OR [address] [place] [address] Sarina Vernon DO 11/25/2024 7:15 AM EDT - 11/25/2024 10:08 AM EDT Surgery [facility] OR [address] [place] [address] Raymundo Gil MD TOTAL HIP ARTHROPLASTY ANTERIOR MODIFIED [81621 (CPT )] 11/25/2024 5:13 AM EDT - 11/25/2024 6:39 PM EDT Hospital Encounter [facility] 3H [address] [place] [address] Raymundo Gil MD Status post total hip replacement, left (Primary Dx); Primary osteoarthritis of left hip Discharge Disposition: Home or Self Care 11/25/2024 Travel 11/19/2024 Pre-Procedure Screening [facility] [address] [address] Karina Wylie 11/11/2024 1:30 PM EDT Pre-Admission Testing [facility] PREADMISSION T [address] [place] [address] Primary osteoarthritis of left hip 11/11/2024 Refill [facility] [address] [facility] [address] [place] [address] Raymundo Gil MD 11/11/2024 Travel 11/03/2024 Telephone [facility] [address] [facility] [address] [place] [address] Raymundo Gil MD BEN - MEDICATION 10/31/2024 10:05 AM EDT Ancillary Procedure [facility] [address] [facility] [address] [place] [address] 10/31/2024 10:00 AM EDT Office Visit [facility] [address] [facility] [address] [place] [address] Raymundo Gil MD Primary osteoarthritis of left hip (Primary Dx) 10/31/2024 Travel from Last 3 Months Family History Medical History Relation Name Comments Multiple myeloma Sister Relation Name Status Comments Father Mother Sister Social History Tobacco Use Types Packs/Day Years [...] or training? Not on file Preferred Language Bolivian 11/11/2024 Comments No Sex and Gender Information Value Date Recorded Sex Assigned at Not on file Legal Sex Female 11:34 AM EST Gender Identity Not on file Sexual Orientation Not on file Last Filed Vital Signs Vital Sign Reading [...] Mass Index 29.81 11/25/2024 6:42 AM EDT Plan of Treatment Upcoming Encounters Date Type Department Care Team (Late st Contact Info) Description 12/12/2024 11:10 AM EDT Office Visit [facility] [address] [facility] [address] [place] [address] Nelly Rosa PA-C [address] [facility] [address] [place] [address] Health Maintenance Due Date Last Done Comments DXA SCAN 1950 COLOGUARD 1995 COLON CANCER SCREENING 5 YEA R SIGMOIDOSCOPY 1995 COLONOSCOPY 1995 COLORECTAL CANCER SCREENING 1995 CT COLONOGRAPHY 1995 FECAL OCCULT BLOOD TEST 1995 FIT Testing (1 year) 1995 ZOSTER VACCINE (2 of 2) 09/26/2018 08/01/2018 ANNUAL WELLNESS VISIT 05/14/2019 HEPATITIS C SCREENING 05/14/2019 Pneumococcal Vaccine 50+ (2 of 2 - PPSV23) 09/06/2019 09/05/2018 COVID-19 Vaccine ( - season) 2024 2021, 06/18/2020, 05/18/2020 INFLUENZA VACCINE 12/24/2024 01/19/2021 MAMMOGRAM 01/28/2026 01/29/2024, 07/2023, 04/02/2023 TDAP/TD VACCINES (2 - Td or Tdap) 01/19/2031 021 Medical Devices Implanted Type Area Fish Bait Processing Supervisor Device Identifier Shelf Expiration Date Model / Serial / Lot Totl Hip 2 Mobl Hernandez Nephew - [id number] Implanted:Qt y: 1 on 11/25/2024 by Raymundo Gil MD at [facility] Implant Left: Hip HER[employer]W CAPHIPTOALDUALMOBILI TY / / Dev Contrl Tiss Stratafix Spiral Mncryl Ud 3/0 Pls 60cm - [id number] Implanted:Qt y: 1 on 11/25/2024 by Raymundo Gil MD at [facility] Implant Left: Hip [employer] ENDO SURGERY DIV OF J AND J 04/25/2026 [id number] / / [id number] Dev Contrl Tiss Stratafix Symm Pds Plus [address]-1 45cm - [id number] Implanted:Qt y: 1 on 11/25/2024 by Raymundo Gil MD at [facility] Implant Left: Hip [employer] DIV OF J AND J 02/22/2026 [id number] / / [id number] Insrt Hip Or30 2/Mobl Xlpe Sz22/36 - [id number] Implanted:Qt y: 1 on 11/25/2024 by Raymundo Gil MD at [facility] Implant Left: Hip HER[employer] NEPHEW 03/30/2030 [id number] / / [id number] Liner Hip Or30 2/Mobl Sz36/48 - [id number] Implanted:Qt y: 1 on 11/25/2024 by Raymundo Gil MD at [facility] Implant Left: Hip [employer]W 05/11/2034 [id number] / / [id number] Scrw Sph Hd Reflection 6.5x30mm - [id number] Implanted:Qt y: 1 on 11/25/2024 by Raymundo Gil MD at [facility] Implant Left: Hip [employer]W 07/08/2034 [id number] / / [id number] Shll Acet R3 3h Std 48mm - [id number] Implanted:Qt y: 1 on 11/25/2024 by Raymundo Gil MD at [facility] Implant Left: Hip [employer]W 12/22/2033 [id number] / / [id number] Stem Fem/Hip Polarstem W/Colr Std Sz2 - [id number] Implanted:Qt y: 1 on 11/25/2024 by Raymundo Gil MD at [facility] Implant Left: Hip [employer]PHEW 06/13/2031 [id number] / / [id number] Hd Fem/Hip Oxinium Tpr 03/08 22mm Pls0 - [id number] Implanted:Qt y: 1 on 11/25/2024 by Raymundo Gil MD at [facility] Implant Left: Hip HER[employer]PHEW 03/30/2034 [id number] / / [id number] Implant Description:Bilat cataract i mplants Mesh in place right inguinal hernia repair Dental bridge but removable Procedures Procedure Name Priority Date/Time Associated Diagnosis Comments XR HIP W OR WO PELVIS 2-3 VIEW LEFT STAT 11/25/2024 10:11 AM EDT FL C ARM DURING SURGERY Routine 11/25/2024 9:01 AM EDT SPINAL Routine 11/25/2024 7:32 AM EDT OR ARTHRP ACETBLR/PROX FEM PROSTC AGRFT/ALGRFT 11/25/2024 7:13 AM EDT Primary osteoarthritis of left hip Special Needs * POTASSIUM STAT 11/25/2024 7:01 AM EDT ECG 12-LEAD Routine 11/11/2024 3:11 PM EDT CBC AND DIFFERENTIAL Routine 11/11/2024 1:33 PM EDT Primary osteoarthritis of left hip CBC WITH AUTO DIFFERENTIAL Routine 11/11/2024 1:33 [...] PM EDT Primary osteoarthritis of left hip XR HIP W OR WO PELVIS 2-3 VIEW LEFT Routine 10/31/2024 10:32 AM EDT Primary osteoarthritis of left hip from Last 3 Months Results * XR Hip With or Without Pelvis 2 - 3 View Left (11/25/2024 10:11 AM EDT) Only the most recent of2 resultswithin the time period is included. Anatomical Region Laterality Modality Lower Extremities, Hip Left Radiograp hic Imaging 11/25/2024 10:3 0 AM EDT Impressions 11/25/2024 10:31 AM EDT Impression: Status post total hip arthroplasty in near anatomic alignment, with no evidence of immediate complication. Electronically Signed: Royce Hare MD 11/25/2024 10:31 AM EDT Workstation ID: [id number] Narrative 11/25/2024 10:31 AM EDT XR HIP W OR WO PELVIS 2-3 VIEW LEFT Date of Exam: 11/25/2024 9:53 AM EDT Indication: post-op left JEAN. Comparison: None available. Findings: There has been placement of a total hip arthroplasty in near-anatomic alignment. No periprosthetic fracture is identified. Post-operative soft tissue gas is noted. Procedure Note Royec Hare MD - 11/25/2024 XR HIP W [...] MD 11/25/2024 10:31 AM EDT Workstation ID: [id number] Raymundo Gil MD [facility] ORDERAB LES Final Result * FL C Arm During Surgery (11/25/2024 9:01 AM EDT) Narrative SYSTEMGENERATED, DOCUMENTATION - 11/25/2024 9:09 AM EDT This procedure was auto-finalized with no dictation required. Raymundo NAVA FLUOROSCOPY ORDERABLES Fin al Result * HC BH AN SPINAL TRAY (11/25/2024 [...] timeout performed Spinal Block Prep: Patient Position:sitting Fleet Assistant:cap, gloves, sterile barriers and mask Prep:Chloraprep Patient [...] flow was obtained and LA was injected: Sarina Vernon DO ANESTHESIA ORDERABLES Edited R esult - Final * Potassium (11/25/2024 7:01 AM EDT) Potassium 4.0 3.5 - 5.2 mmol/L 11/25/2024 7:30 AM EDT [facility] Blood Line / Unknown 11/25/2024 7: 01 AM EDT 11/25/2024 7:01 AM EDT Sarina Vernon DO LAB BLOOD ORDERABLES Final Res ult [facility]
[address] [place] [address], * ECG 12 Lead (11/11/2024 3:11 PM EDT) QT Interval 430 ms BH ECG QTC Interval 440 ms ECG 11/11/2024 [...] previous ECGs available Confirmed by NATI COSME ([id number]) on 11/13/2024 10:41:05 AM Referred By: Confirmed [...] previous ECGs available Confirmed by NATI COSME ([id number]) on 11/13/2024 10:41:05 AM Referred By: Confirmed By: NATI COSME us Raymundo Gil MD ECG ORDERABLES Final Result ECG * (ABNORMAL) CBC Auto Differential (11/11/2024 1:33 PM EDT) WBC 8.86 3.40 - 10.80 10*3/mm3 11/11/2024 3:14 PM EDT [facility] RBC 4.38 3.77 - 5.28 10*6/mm3 11/11/2024 3:14 PM EDT [facility] Hemoglobin 12.9 12.0 - 15.9 g/dL 11/11/2024 3:14 PM EDT [facility] Hematocrit 37.9 34.0 - 46.6 % 11/11/2024 3:14 PM EDT [facility] MCV 86.5 79.0 - 97.0 fL 11/11/2024 3:14 PM EDT [facility] MCH 29.5 26.6 - 33.0 pg 11/11/2024 3:14 PM EDT [facility] MCHC 34.0 31.5 - 35.7 g/dL 11/11/2024 3:14 PM EDT [facility] RDW 13.5 12.3 - 15.4 % 11/11/2024 3:14 PM EDT [facility] RDW-SD 41.8 37.0 - 54.0 fl 11/11/2024 3:14 PM EDT [facility] MPV 9.0 6.0 - 12.0 fL 11/11/2024 3:14 PM EDT [facility] Platelets 233 140 - 450 10*3/mm3 11/11/2024 3:14 PM EDT [facility] Neutrophil % 70.2 42.7 - 76.0 % 11/11/2024 3:14 PM EDT [facility] Lymphocyte % 19.5(L) 19.6 - 45.3 % 11/11/2024 3:14 PM EDT [facility] Monocyte % 7.2 5.0 - 12.0 % 11/11/2024 3:14 PM EDT [facility] Eosinophil % 2.3 0.3 - 6.2 % 11/11/2024 3:14 PM EDT [facility] Basophil % 0.6 0.0 - 1.5 % 11/11/2024 3:14 PM EDT [facility] Immature Grans % 0.2 0.0 - 0.5 % 11/11/2024 3:14 PM EDT [facility] Neutrophils, Absolute 6.22 1.70 - 7.00 10*3/mm3 11/11/2024 3:14 PM EDT [facility] Lymphocytes, Absolute 1.73 0.70 - 3.10 10*3/mm3 11/11/2024 3:14 PM EDT [facility] Monocytes, Absolute 0.64 0.10 - 0.90 10*3/mm3 11/11/2024 3:14 PM EDT [facility] Eosinophils, Absolute 0.20 0.00 - 0.40 10*3/mm3 11/11/2024 3:14 PM EDT [facility] Basophils, Absolute 0.05 0.00 - 0.20 10*3/mm3 11/11/2024 3:14 PM EDT [facility] Immature Grans, Absolute 0.02 0.00 - 0.05 10*3/mm3 11/11/2024 3:14 PM EDT [facility] nRBC 0.0 0.0 - 0.2 /100 WBC 11/11/2024 3:14 PM EDT [facility] Blood Venipuncture / Unknown 11/11/2024 1:33 PM EDT 11/11/2024 3:11 PM EDT Raymundo Gil MD LAB BLOOD ORDERABLES Final Res ult Performing Organization Address [facility] Co de Phone Number [facility]
[address] [place] [address], * APTT (11/11/2024 1:33 PM EDT) PTT 31.7 22.0 - 39.0 seconds 11/11/2024 3:36 PM EDT [facility] Blood Venipuncture / Unknown 11/11/2024 1:33 PM EDT 11/11/2024 3:11 PM EDT Narrative [facility] - 11/11/2024 3:36 PM EDT PTT = The equivalent PTT values for the therapeutic range of heparin levels at 0.3 to 0.5 U/ml are 60 to 70 seconds. Raymundo Gil MD LAB BLOOD ORDERABLES Final Res ult Performing Organization Address [facility] de Phone Number [facility]
[address] [place] [address], * Sedimentation rate (11/11/2024 1:33 PM EDT) Sed Rate 26 0 - 30 mm/hr 11/11/2024 3:31 PM EDT [facility] Blood Venipuncture / Unknown 11/11/2024 1:33 PM EDT 11/11/2024 3:11 PM EDT Raymundo Gil MD LAB BLOOD ORDERABLES Final Res ult Performing Organization Address City/[facility] Co de Phone Number [facility]
[address] [place] [address], * Protime-INR (11/11/2024 1:33 PM EDT) [facility] Protime 14.4 12.2 - 15.3 Seconds 11/11/2024 3:36 PM EDT [facility] INR 1.05 0.89 - 1.12 11/11/2024 3:36 PM EDT [facility] Blood Venipuncture / Unknown 11/11/2024 1:33 PM EDT 11/11/2024 3:11 PM EDT Raymundo Gil MD LAB BLOOD ORDERABLES Final Res ult [facility]
[address] [place] [address], * C-reactive protein (11/11/2024 1:33 PM EDT) [facility] C-Reactive Protein 0.33 0.00 - 0.50 mg/dL 11/11/2024 3:58 PM EDT [facility] Blood Venipuncture / Unknown 11/11/2024 1:33 PM EDT 11/11/2024 3:11 PM EDT Raymundo Gil MD LAB BLOOD ORDERABLES Final Res ult [facility]
[address] [place] [address], * (ABNORMAL) Hemoglobin A1c (11/11/2024 1:33 PM EDT) [facility] Hemoglobin A1C 4.59(L) 4.80 - 5.60 % 11/11/2024 3:56 PM EDT [facility] Blood Venipuncture / Unknown 11/11/2024 1:33 PM EDT 11/11/2024 3:11 PM EDT Narrative [facility] - 11/11/2024 3:56 PM EDT Hemoglobin A1C Ranges: Increased Risk for Diabetes 5.7% to 6.4% Diabetes >= 6.5% Diabetic Goal < 7.0% Raymundo Gil MD LAB BLOOD ORDERABLES Final Res ult [facility]
[address] [place] [address], * Basic metabolic panel (11/11/2024 1:33 PM EDT) [facility] Glucose 91 65 - 99 mg/dL 11/11/2024 3:58 PM EDT [facility] BUN 11.2 8.0 - 23.0 mg/dL 11/11/2024 3:58 PM EDT [facility] Creatinine 0.65 0.57 - 1.00 mg/dL 11/11/2024 3:58 PM EDT [facility] Sodium 141 136 - 145 mmol/L 11/11/2024 3:58 PM EDT [facility] Potassium 3.9 3.5 - 5.2 mmol/L 11/11/2024 3:58 PM EDT [facility] Chloride 103 98 - 107 mmol/L 11/11/2024 3:58 PM EDT [facility] CO2 24.0 22.0 - 29.0 mmol/L 11/11/2024 3:58 PM EDT [facility] Calcium 9.8 8.6 - 10.5 mg/dL 11/11/2024 3:58 PM EDT [facility] BUN/Creatinine Ratio 17.2 7.0 - 25.0 11/11/2024 3:58 PM EDT [facility] Anion Gap 14.0 5.0 - 15.0 mmol/L 11/11/2024 3:58 PM EDT [facility] eGFR 92.5 >60.0 mL/min/1.7 3 11/11/2024 3:58 PM EDT [facility] Blood Venipuncture / Unknown 11/11/2024 1:33 PM EDT 11/11/2024 3:11 PM EDT Narrative [facility] - 11/11/2024 3:58 PM EDT GFR [...] MD LAB BLOOD ORDERABLES Final Res ult [facility]
[address] [place] [address], from Last 3 Months Insurance MEDICARE A & B Member Subscriber Plan / Payer (Ef fective 2015-Present) Name:Shireen Rain Member ID:[id number] Relation to Subscriber:Self Name:Shireen Rain Subscriber ID:[id number] Payer ID:[id number] Group ID:Not on file Type:Not on file Address: [id number] Advance Directives * CPR (Attempt to Resuscitate) (Latest Code Status on File) Date Activated Date Inactivated Comments 11/25/2024 10:40 AM 11/25/2024 8:44 PM Question Answer Comments Code Status (Patient has no pulse and is not breathing): CPR (Attempt to Resuscitate) Medical Interventions (Patie nt has pulse or is breathing): Full Support Care Teams Bakery Decorator Relationship Specialty Start Date End Date Jay Vernon MD [address] [place] [address] PCP - General Family Medicine 05/14/19
--- OUTSIDE RECORDS SUMMARY | 2024-12-09 10:22 | XMS_ITS | Encounter Summary ---
Author Organization [facility] Address [address] [place] [address] Care Team Providers Care Cloth Tester Name Role Phone Jay Vernon MD Primary Care Provider [phone] Encounter Details Date Type Department Care Team (Latest Contact Info) Description 11/11/2024 Travel Social History Tobacco Use Types Packs/Day [...] or training? Not on file Preferred Language [place]guillan 11/11/2024 Comments No Sex and Gender Information Value Date Recorded Sex Assigned at Not on file Legal Sex Female 11:34 AM EST Gender Identity Not on file Sexual Orientation Not on file documented as of this encounter Plan of Treatment Upcoming Encounters Date Type Department Care Team (Late st Contact Info) Description 12/12/2024 11:10 AM EDT Office Visit [facility] [address] [facility] [address] [place] [address] Nelly Rosa PA-C [address] [facility] [address] [place], [place] [id number] documented as of this encounter Visit Diagnoses Not on filedocumented in this encounter Care Teams Cloth Tester Relationship Specialty Start Date End Date Jay Vernon MD [address] [place] [address] PCP - General Family Medicine 05/14/19 documented as of this encounter
--- OUTSIDE RECORDS SUMMARY | 2024-12-09 10:22 | XMS_ITS | Encounter Summary ---
[facility] Organization [facility] Address [address] [place] [address] [address] Team [address] Care Ct Scan Special Procedures Technologist Name Role Phone Jay Vernon MD Primary Care Provider [phone] Encounter Details Date Type Department Care Team (Late st Contact Info) Description 12/03/2024 Telephone [facility] [address] [place] [address] Raymundo Gil MD [address] [place] [address] Social History Tobacco Use Types Packs/Day Years [...] or training? Not on file Preferred Language Croatian 11/11/2024 Comments No Sex and Gender Information Value Date Recorded Sex Assigned at Not on file Legal Sex Female 11:34 AM EST Gender Identity Not on file Sexual Orientation Not on file documented as of this encounter Miscellaneous Notes * Telephone Encounter - Karina Wylie - 12/03/2024 9:40 AM EDT I called pt back to discuss her pictures; Explained that all of the gauze bandage can come off; Explained that the clear mesh like tape will stay on until her 1st post-op visit. Explained that everything looks normal and to not be concerned about the swelling at this point. Encouraged her to continue icing the area. Explained if she developed a increase in pain or any fevers, chills, night sweats, or drainage fromthe incision to call us back. Patient was reassured and had no further questions or concerns at this time. Karina Alston CMA ([facility]), ROT * Telephone Encounter - Karina Wylie - 12/03/2024 9:39 AM EDT Images from the original note were not included. * Telephone Encounter - Karina Wylie - 12/03/2024 9:05 AM EDT Spoke to pt; She denies any drainage coming from the incision; Also denies any fevers, chills, or night sweats. I reassured her that I don't believe she is going to need any antibiotics but I did request she send a picture of the incision so we can take a look to make sure it all looks normal. She was agreeable to this and plans to send a picture in the next few minutes. I told her I would watch for this and then give her a call back. Karina Alston CMA ([facility])CHARLEEN * Telephone Encounter - Karina Wylie - 12/03/2024 9:02 AM EDT Patient was transferred to Care Navigation line but had to leave a message regarding concerns with incision. She reports after taking a shower she noticed part of the dressing came off and she was able to visualize more of the area around the incision; She notes some swelling and possible bruising in the area and wanted to make sure this was okay and nothing to be concerned with. Patient then called Care Navigation line directly but again had to leave a voicemail. Requested a call back to discuss the above. CHARLEEN Ramires CMA ([facility]) documented in this encounter Plan of Treatment Upcoming Encounters Date Type Department Care Team (Late st Contact Info) Description 12/12/2024 11:10 AM EDT Office Visit [facility] [address] [facility] [address] [place] [address] Nelly Rosa PA-C 1760 [facility] [address] [place] [address] documented as of this encounter Visit Diagnoses Not on filedocumented in this encounter Care Teams Ct Scan Special Procedures Technologist Relationship Specialty Start Date End Date Jay Vernon MD [address] [place] [address] PCP - General Family Medicine 05/14/19 documented as of this encounter
--- OUTSIDE RECORDS SUMMARY | 2024-12-09 10:22 | XMS_ITS | Encounter Summary ---
Author Organization [facility] Address [address] [place] [address] Care Team Providers Care Retail Shift Manager Name Role Phone Jay Vernon MD Primary Care Provider [phone] Encounter Details Date Type Department Care Team (Latest Contact Info) Description 11/25/2024 Travel Social History Tobacco Use Types Packs/Day [...] or training? Not on file Preferred Language St Helenian 11/11/2024 Comments No Sex and Gender Information Value Date Recorded Sex Assigned at Not on file Legal Sex Female 11:34 AM EST Gender Identity Not on file Sexual Orientation Not on file documented as of this encounter Functional Status * Question Answer Date of Assessment Author 1. Wish to be (Past 1 Month) No 11/25/2024 6:47 AM NÉSTORT Xiao Lugo RN 2. Non-Specific Active Suici nahid Thoughts (Past 1 Month) No 11/25/2024 6:47 AM EDT Teresita Lugo RN * Calculated C-SSRS Risk Score (Lifetime/Recent) Answer Date of Assessment Author No Risk Indicated 11/25/2024 6:47 AM NÉSTORT Xiao Lugo RN * Cooper Suicide Severity Rating Scale (Screener/Recent Self-Report) Question Answer Date of Assessment Author 6. Suicidal Behavior (Lifetime) No 6:47 AM NÉSTORT Xiao Lugo RN documented as of this encounter Plan of Treatment Upcoming Encounters Date Type Department Care Team (Late st Contact Info) Description 12/12/2024 11:10 AM EDT Office Visit [facility] [address] [facility] [address] [place] [address] Nelly Rosa PA-C 1760 [facility] [address] [place] [address] documented as of this encounter Visit Diagnoses Not on filedocumented in this encounter Care Teams Retail Shift Manager Relationship Specialty Start Date End Date Jay Vernon MD [facility] [place] [address] PCP - General Family Medicine 05/14/19 documented as of this encounter
--- OUTSIDE RECORDS SUMMARY | 2024-12-09 10:22 | XMS_ITS | Encounter Summary ---
Author Organization [facility] Address [address] [place] [address] Care Team Providers Care [employer] Name Role Phone Jay Vernon MD Primary Care Provider [phone] Encounter Details Date Type Department Care Team (Late st Contact Info) Description 11/19/2024 Pre-Procedure Screening [facility] & SPORTS MEDICINE [address] [place] [address] Karina Wylie Social History Tobacco Use Types Packs/Day Years [...] or training? Not on file Preferred Language Cymraes 11/11/2024 Comments No Sex and Gender Information Value Date Recorded Sex Assigned at Not on file Legal Sex Female 11:34 AM EST Gender Identity Not on file Sexual Orientation Not on file documented as of this encounter Miscellaneous Notes * Telephone Encounter - Karina Wylie - 11/19/2024 1:40 PM EDT TOTAL JOINT REPLACEMENT CARE NAVIGATION INITIAL ASSESSMENT PATIENT INFORMATION: Patient: Shireen Rain Date of : 1950 Age/Gender: 74 y.o. female Surgery: L JEAN Surgery Date: 11/25/24 Surgeon: Dr. Gil Physical Therapy Location: [facility], [facility] transition to OPPT [facility] PT Date & Time: DVT PPX: ASA 81mg BID DISCHARGE PLAN: Outpatient LIVING SITUATION: [x]Private Residence Who lives in the home? []Half-Way: []Assisted Living []Rehabilitation Facility: [x]Live Alone []Homeless HOUSING STYLE: []Ranch Style [x]Multi-level []Split level []Townhouse []Apartment Do you have steps to navigate in the home? Will be able to stay on one level Do you have steps to navigate outside the home? 2 steps ADL: [x]Independent []Independent with difficulty []Partially Dependent []Dependent Do you require bathing/showering? Do you require assistance with grooming (brushing hair, shaving, etc)? Do you require assistance dressing? Do you require assistance with walking? Do you require assistive devices while walking (cane, walker, wheelchair)? Do you require assistance with transfers (moving from bed to chair, wheelchair, etc)? Do you require assistance preparing meals? Do you require assistance when eating meals? Do you require assistance to use the toilet? Do you have any issues with bowel or bladder incontinence? Do you require assistance with community nutrition educator (cleaning, laundry, etc)? Have you had any recent falls? Yes-several months ago CURRENT SERVICES: []Home Health (PT, OT, Long-Term) Agency: County: []Palliative Care []Meals on Wheels []Daily Caregiver [x]None CURRENT DME: []Walker [x]Cane []Wheelchair []Crutches []Bedside Commode []Shower Chair []Hospital Bed []Nebulizer []Oxygen []Other: MEDICATIONS: Lisinopril-takes in PM Are you currently on any blood thinners? No Are you currently on any anti-inflammatory medications? Celebrex-can continue Are you currently on any medications for rheumatoid arthritis? No Are you currently taking any herbal supplements? Turmeric-holding Post-op Pharmacy Name: [facility] Phone Number: Does anyone assist you filling medication boxes or remind you that medication is due? Are you currently on a mail order prescription plan? What pharmacy do you use to fill your short-term prescriptions? [facility] Do you have prescription insurance coverage? Can you afford your medications/co-pays? CURRENT TRANSPORTATION: Which services do you rely on? []Taxi []Public Transportation [x]Private Vehicle []Ambulance []Tack (Transportation Assistance Critical access hospital) Do you have a way to get home when you are discharged? Friend, Heath POTENTIAL NEEDS: []Rehabilitation []Home Health PT []SNF []Meals on Wheels []Department of Farm Management Agent []Palliative Care []Half-Way []Hospice [x]Durable Medical Equipment-has all DMEs []Caregiver Services []Financial Services []Pre-op In Home PT Evaluation CLEARANCES NEEDED FOR SURGERY: []Dental []Cardiology []Pulmonology []Medical (PCP) []Rheumatology []Endocrinology []Hematology/Oncology []Neurology []Neurosurgery []CT Vascular INITIAL DISCHARGE PLAN: Plan for same day discharge. Patient's friend, Heath, will be surgery class b truck driver, as well as, assisting in post-op care. Patient has all DMEs. Patient informed about [facility] program. Post-op PT scheduled with Catherine then transition to OPPT at [facility]. documented in this encounter Plan of Treatment Upcoming Encounters Date Type Department Care Team (Late st Contact Info) Description 12/12/2024 11:10 AM EDT Office Visit [facility]ICINE [address] [facility] [address] [place] [address] Nelly Rosa PA-C 1760 [facility] [address] [place], [place] [id number] documented as of this encounter Visit Diagnoses Not on filedocumented in this encounter Care Teams [employer] Relationship Specialty Start Date End Date Jay Vernon MD [address] [place] [address] PCP - General Family Medicine 05/14/19 documented as of this encounter
--- OUTSIDE RECORDS SUMMARY | 2024-12-09 10:22 | XMS_ITS | Encounter Summary ---
Author Organization [facility] Address [address] [place] [address] Care Team Providers Care Salt Refiner Name Role Phone Jay Vernon MD Primary Care Provider [phone] Reason for Visit * Reason Onset Date Comments Med Refill 11/13/2024 Encounter Details Date Type Department Care Team (Late st Contact Info) Description 11/11/2024 Refill [facility]THOP[facility]ICS & SPORTS MEDICINE [address] [place] [address] Raymundo Gil MD [address] [place] [address] Social History Tobacco Use Types Packs/Day Years [...] or training? Not on file Preferred Language Cambodian 11/11/2024 Comments No Sex and Gender Information Value Date Recorded Sex Assigned at Not on file Legal Sex Female 11:34 AM EST Gender Identity Not on file Sexual Orientation Not on file documented as of this encounter Progress Notes * Pinky Rose - 11/12/2024 10:00 AM EDTAddended by: PINKY ROSE on: 11/12/2024 10:00 AM Modules accepted: Orders documented in this encounter Miscellaneous Notes * Telephone Encounter - Pinky Rose - 11/13/2024 10:42 AM EDT Called pt to let her know Rx for Celebrex has been sent into her pharmacy; Advised she could go ahead and switch from the Diclofenac to the Celebrex now or wait until she has to starting holding her Diclofenac a week before surgery to make the switch. She verbalized understanding. Pinky SMITH)CHARLEEN * Telephone Encounter - Pinky Rose - 11/12/2024 3:34 PM EDT Called pt to let her know that once Nelly had gotten back to me in regards to the Celebrex, I wouldreach back out to her. She verbalized understanding and expressed appreciation for the call. CHARLEEN Ramires CMA ([facility]) * Telephone Encounter - Pinky Rose - 11/12/2024 9:58 AM EDT Nelly-Dr. Gil has okayed Celebrex to take. Do you mind sending this in for patient? Rx pended but please review. Thanks! Pinky Alston CMA ([facility]), CHARLEEN * Telephone Encounter - Pinky Rose - 11/12/2024 9:23 AM EDT Patient called and left a message on the Care Navigation line inquiring about the alternative to diclofenac. Requested a call back. Pinky Alston CMA ([facility])CHARLEEN * Telephone Encounter - Pinky Rose - 11/11/2024 2:21 PM EDT Nelly-patient is scheduled with Dr. Gil for a L JEAN on 11/25/24; Requesting advice on pain management pre-operatively (please see message below). Could Celebrex be considered? Please advise. Thanks! Michaela from [facility] calling to notify us that patient has concerns related to discontinuing her Diclofenac (and all other NSAIDs) 7 days prior to surgery; Patient reports that Tylenol nor Tylenol Arthritis are effective when it comes to controlling her pain. Michaela provided patient with my number to callto discuss alternative options for pain management pre-operatively. Pinky Alston CMA ([facility])CHARLEEN documented in this encounter Plan of Treatment Upcoming Encounters Date Type Department Care Team (Late st Contact Info) Description 12/12/2024 11:10 AM EDT Office Visit [facility] MEDICINE [address] [facility] [address] [place] [phone] Nelly Rosa PA-C 1760 [facility] [address] [place] [address] documented as of this encounter Visit Diagnoses Not on filedocumented in this encounter Care Teams Salt Refiner Relationship Specialty Start Date End Date Jay Vernon MD [address] [place] [address] PCP - General Family Medicine 05/14/19 documented as of this encounter
--- OUTSIDE RECORDS SUMMARY | 2024-12-09 10:22 | XMS_ITS | Clinical Summary ---
Author Organization [facility] Address [address] [place] [address] Care Team Providers Care Complex Director Name Role Phone Reva Morse DO Unavailable [phone] Jay Vernon MD Primary Care Provider [phone] Allergies No known active allergies Medications lisinopril 20 MG tablet 1 tablet (20 mg). 05/18/2022 Active atorvastatin (Lipitor) 10 MG tablet 1 tablet (10 mg). 05/18/2022 Active furosemide (Lasix) 20 MG tablet 1 tablet (20 mg). 05/18/2022 Active Vitamin D3 1.25 MG (66622 UT) capsule TAKE 1 CAPSULE BY MOUTH WEEKLY 10/02/2022 Active diclofenac (Voltaren) 75 MG EC tablet Take 1 tablet (75 mg) by mouth 2 (two) times a day if needed. 07/05/2022 Active Active Problems No known active problems Social History Tobacco Use Types Packs/Day Years Used Date Smoking Tobacco: Never Smokeless Tobacco: Never Tobacco Cessation:Counseling Given: Not Answered Comments Unknown Sex and Gender Information Value Date Recorded Sex Assigned at Not on file Legal Sex Female 8:32 PM EDT Gender Identity Not on file Sexual Orientation Not on file Last Filed Vital Signs Vital Sign Reading Time Taken Comments Blood Pressure 126/77 03/15/2023 10:12 AM EST Pulse 69 03/15/2023 10:12 AM EST Temperature 36.4 C (97.5 F) 03/15/2023 10:12 AM EST Respiratory Rate - - Oxygen Saturation 96% 03/15/2023 10:12 AM EST Inhaled Oxygen Concentration - - Weight 80.1 kg (176 lb 9.4 oz) 03/15/2023 10:12 AM EST Height 157.5 cm (5' 2 ) 03/15/2023 10:12 AM EST Body Mass Index 32.3 03/15/2023 10:12 AM EST Plan of Treatment Health Maintenance Due Date Last Done Comments [facility]-Bone Density Scan 1950 [facility]-Depression Screening 1950 [facility]-Hepatitis C Screening 1950 [facility]-Medicare Annual Wellness (AWV) 1950 [facility]-Infant/Child/Adol SDOH Screenings 1950 [facility]-Obesity Intervention 1956 [facility]- SDOH Screenings 1968 [facility]-Adult SDOH Screenings 1968 [facility]-DTaP,Tdap,and Td Vaccine s (1 - Tdap) 1969 CT Colonography 1995 Colonoscopy 1995 FIT-DNA 1995 FIT 1995 FOBT 1995 Sigmoidoscopy 1995 [facility]-Colorectal Cancer Screening 1995 [facility]-Pneumococcal Vaccine: 50 + Years (1 of 1 - PCV) 2000 [facility]-Zoster Vaccines (1 of 2) 2000 [id number] Vaccine (1 - 2023- season) 2024 [facility]-Influenza Vaccine (#1) 2024 [facility]-RSV Vaccine: 60+ Years o r (1 - 1-dose 75+ series) 2025 [facility]-Breast Cancer Screening Discontinued 07/2023, 04/02/2023 HPV Vaccines Aged Out No longer eligi ble based on patient's age to complete this topic [facility]-HIB Vaccines Aged Out No longer e ligible based on patient's age to complete this topic [facility]-Hepatitis A Vaccines Aged Out No longer eligible based on patient's age to complete this topic [facility]-IPV Vaccines Aged Out No longer e ligible based on patient's age to complete this topic [facility]-Rotavirus Vaccines Aged Out No lo nger eligible based on patient's age to complete this topic Procedures Procedure Name Priority Date/Time Associated Diagnosis Comments MAMMOGRAPHY BREAST DIAGNOSTIC TOMOSYNTHESIS BILATERAL 01/29/2024 12:00 PM EST from Last 3 Months or Most Recently Relevant to Health Maintenance Results * Mammography Breast Diagnostic Tomosynthesis Bilateral (01/29/2024 12:00 PM EST) Anatomical Region Laterality Modality Breast Bilateral Mammography 01/29/2024 12:0 0 PM EST Narrative 01/29/2024 9:19 [place] [address] Patient Name: DOLLY LIU Patient : 1950 Age: 73 years Patient Ordering Provider: NILSON ROWE EXAM DATE: 01/29/2024 EXAM: MG RUSSELL DIAG SEGUNDO MAMMOGRAM INDICATION: 73-year-old female with history of right breast malignancy status post right lumpectomy April 2023. 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 PROCEDURE: Multislice imaging of the both breasts was performed using [employer] tomosynthesis equipment (3D mammography). 2D images were created from the 3D dataset using C-View software. Images were evaluated with the assistance of Computer Aided Detection (CAD) software. COMPARISON: This is compared with prior mammograms dated back to 2022. MAMMOGRAM FINDINGS: There are scattered areas of fibroglandular density. Expected postsurgical/post lumpectomy change is present in the posterior third depth lower inner quadrant right breast. No new mass, area of architectural distortion or suspicious calcification is present.. IMPRESSION: Expected interval post lumpectomy change right breast. No suspicious finding identified. BI-RADS Category 2, Benign finding, routine follow-up. The patient has been entered into an automated reminder system. COMMENT: Findings and recommendations were discussed with the patient. Interpreted By: Jayla Maddox MD Procedure Note Jayla Maddox MD - 01/29/2024 [place] [id number] Patient Name: DOLLY LIU Patient : 1950 Age: 73 years Patient Ordering Provider: NILSON ROWE EXAM DATE: 01/29/2024 EXAM: MG RUSSELL DIAG SEGUNDO MAMMOGRAM INDICATION: 73-year-old female with history of right breast malignancy status post right lumpectomy April 2023. 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 PROCEDURE: Multislice imaging of the both breasts was performed using [employer] tomosynthesis equipment (3D mammography). 2D images were created from the 3D dataset using C-View software. Images were evaluated with the assistance of Computer Aided Detection (CAD) software. COMPARISON: This is compared with prior mammograms dated back to 2022. MAMMOGRAM FINDINGS: There are scattered areas of fibroglandular density. Expected postsurgical/post lumpectomy change is present in the posterior third depth lower inner quadrant right breast. No new mass, area of architectural distortion or suspicious calcification is present.. IMPRESSION: Expected interval post lumpectomy change right breast. No suspicious finding identified. BI-RADS Category 2, Benign finding, routine follow-up. The patient has been entered into an automated reminder system. COMMENT: Findings and recommendations were discussed with the patient. Interpreted By: Jayla Maddox MD Nilson Rowe MD IMG BI PROCEDURES Final Result from Last 3 Months or Most Recently Relevant to Health Maintenance Insurance MEDICARE [facility] Care Teams Complex Director Relationship Specialty Start Date End Date Jay Vernon MD [address] [place] [address] PCP - General 03/15/23 Reva Morse DO [address] [place] [address] Referring Physician 03/02/23
--- OUTSIDE RECORDS SUMMARY | 2024-12-09 10:22 | XMS_ITS | Encounter Summary ---
Author Organization [facility] Address [address] [place] [id number] Care Team Providers Care Race Engine Builder Name Role Phone Jay Vernon MD Primary Care Provider Reason for Visit * Reason Onset Date Comments 1 week post-op call 12/02/2024 Encounter Details Date Type Department Care Team (Late st Contact Info) Description 12/02/2024 Telephone [facility] MEDICINE [address] [place] [address] Raymundo Gil MD [address] [facility] [address] [place] [address] 1 week post-op call Social History Tobacco Use Types Packs/Day Years [...] or training? Not on file Preferred Language Brazilian 11/11/2024 Comments No Sex and Gender Information Value Date Recorded Sex Assigned at Not on file Legal Sex Female 11:34 AM EST Gender Identity Not on file Sexual Orientation Not on file documented as of this encounter Miscellaneous Notes * Telephone Encounter - Karina Wylie - 12/02/2024 9:34 AM EDT Post-op Call # of days out from surgery: 7 days s/p L JEAN Pain: 05/05 Swelling: Noted some significant swelling the first 2 days but PT encouraged her to ice more and elevate the leg higher than the heart which has helped the swelling go down. Current medications: Only took oxycodone for 2 days; Taking Celebrex. Any refills needed: Not at this time. Incision: Denies any drainage. PT: Catherine PERLA last week and this week; transitioning to [facility] next week. Romtech: N/A DVT prophylaxis: ASA 81mg BID documented in this encounter Plan of Treatment Upcoming Encounters Date Type Department Care Team (Late st Contact Info) Description 12/12/2024 11:10 AM EDT Office Visit [facility] [address] [facility] [address] [place] [address] Nelly Rosa PA-C 1760 [facility] 101 [place], [place] [id number] documented as of this encounter Visit Diagnoses Not on filedocumented in this encounter Care Teams Race Engine Builder Relationship Specialty Start Date End Date Jay Vernon MD [address] [place] [address] PCP - General Family Medicine 05/14/19 documented as of this encounter
[2024-12-09] MEDS: ACETAMINOPHEN 500MG TAB 1000 MG PO (10:24)
[2024-12-09 10:51] VITALS: BP 155/67; PULSE 75; RESP 16; TEMP 36.7; O2SAT 99
== END 2024-12-09 10:52 | disposition home or self-care (01) ==
PROVIDERS: Emergency Provider Student in an Organized Health Care Education/Training Program; PCP Family Medicine
DX: M25.552 Pain in left hip (principal); R22.42 Localized swelling, mass and lump, left lower limb
CPT/HCPCS: 93971; 99283; 99284